=== PATIENT | female | born 1980 | race Caucasian/White ===

== ENCOUNTER 2019-10-07 18:19 | Emergency (ER) | payer MEDICARE, MEDICAID, SELFPAY ==
--- NOTE | ~2019-10-07 | XR_ITS ---
XR shoulder LT min 2V 10/07/2019 19:30 Indication: Left shoulder pain after fall Procedure: 4 views left shoulder Comparison: No prior studies for comparison. Findings: Normal anatomic alignment. No acute fracture or traumatic malalignment. Acromioclavicular j oint within normal limits. Adjacent soft tissues are normal. Visualized lung parenchyma within normal limits. Impression: 1: No acute fracture or subluxation. Reviewed, dictated and finalized at location A. Impression: 1: No acute fracture or subluxation.
--- NOTE | ~2019-10-07 | XR_ITS ---
XR elbow LT min 3V 10/07/2019 19:30 INDICATION: Left posterior elbow pain after fall PROCEDURE: 4 views left elbow COMPARISON: No prior studies for comparison. FINDINGS: Fracture, dislocation or subluxation is not identified. No significant joint effusion. Smal l osteophyte originates from the ventral aspect of the distal humerus. The soft tissues appear within normal limits. No foreign bodies are identified. IMPRESSION: 1: NO ACUTE BONE OR JOINT ABNORMALITY IDENTIFIED. Reviewed, dictated and finalized at location A.
[2019-10-07 18:32] VITALS: BP 150/100; PULSE 87; RESP 16; TEMP 36.9; O2SAT 96
[2019-10-07 19:15] VITALS: BP 164/90; PULSE 88; RESP 12; O2SAT 96
[2019-10-07] MEDS: IBUPROFEN 600 MG TABLET PO (19:34)
--- NOTE | 2019-10-07 20:06 | ED.GENADULT ---
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 struck the left elbow on a stair and has since had moderate aching pain to the left shoulder patient on arrival has ice to the shoulder and is otherwise resting comfortably in the room in no distress denies other injuries or complaints and is resting comfortably as noted Related Data Home Medications Medication Instructions Recorded Confirmed amoxicillin-pot clavulanate tablet 10/07/19 Allergies Allergy/AdvReac Type Severity Reaction Status Date / Time morphine Allergy Unknown Nervousness Verified 10/07/19 19:35 Review of Systems Review of Systems: All systems reviewed & are unremarkable except as noted in HPI and below Exam Narrative: Exam Narrative: GENERAL: Well-appearing, well-nourished, and in no acute distress. HEAD: Normocephalic, atraumatic. EYES: PERRLA and EOMI. ENT: Nares clear, no rhinorrhea or epistaxis. Mucous membranes moist. CHEST: Clear to auscultation. No respiratory distress. No wheezes rales or rhonchi HEART: Regular rate and rhythm. No murmur heard. EXTREMITIES: Tenderness of the left elbow and shoulder with no deformities noted SKIN: Warm, dry, no rash. NEURO: No focal deficits. Alert and oriented x3. Cranial nerves II through XII grossly intact PSYCH: Normal mood and affect. Course Course Emergency Course: Patient in the room in no distress aware of case findings treatment plan and diagnosis agreeing to follow-up as directed with orthopedic surgery felt appropriate for outpatient reevaluation Vital Signs Vital signs: Vital Signs Temperature 98.4 F 10/07/19 18:32 Pulse Rate 87 10/07/19 18:32 Respiratory Rate 16 10/07/19 18:32 Blood Pressure 150/100 H 10/07/19 18:32 Pulse Oximetry 96 10/07/19 18:32 Temperature 98.4 F 10/07/19 18:32 Pulse Rate 87 10/07/19 18:32 Respiratory Rate 16 10/07/19 18:32 Blood Pressure 150/100 H 10/07/19 18:32 Pulse Oximetry 96 10/07/19 18:32 Medical Decision Making MDM Narrative Medical decision making narrative: Patients injury or pain is consistent with musculoskeletal etiology. No signs of neurological or vascular compromise on exam. Compartments and tisues are soft without signs of compartment syndrome. Pain is felt appropriate for further evaluation on an outpatient basis. Vital Signs Vital Signs: Vital Signs Temperature 98.4 F 10/07/19 18:32 Pulse Rate 87 10/07/19 18:32 Respiratory Rate 16 10/07/19 18:32 Blood Pressure 150/100 H 10/07/19 18:32 Pulse Oximetry 96 10/07/19 18:32 Temperature 98.4 F 10/07/19 18:32 Pulse Rate 87 10/07/19 18:32 Respiratory Rate 16 10/07/19 18:32 Blood Pressure 150/100 H 10/07/19 18:32 Pulse Oximetry 96 10/07/19 18:32 Imaging Data Radiologist's impression: ITS Impressions Elbow X-Ray 10/07/19 19:33 IMPRESSION: 1: NO ACUTE BONE OR JOINT ABNORMALITY IDENTIFIED. Shoulder X-Ray 10/07/19 19:34 Impression: 1: No acute fracture or subluxation. Discharge Plan Discharge Clinical Impression: Injury of left shoulder, Injury of elbow, left Patient Disposition: Home, Self-Care Condition: Stable Instructions: Antibiotic Form, Arthralgia (ED) Additional Instructions: Follow up with your primary care doctor in 5-7 days for re-evaluation. Go to ER for worsening pain, vision changes, nausea/vomiting, fever/chills, weakness, chest pain, shortness of breath, numbness/tingling, slurred speech, difficulty walking, change in mental status etc. or any other concerns. Take any prescribed medications a
[2019-10-07 20:25] VITALS: BP 164/90; PULSE 81; RESP 17; O2SAT 97
== END 2019-10-07 20:25 | disposition home or self-care (01) ==
PROVIDERS: Emergency Provider Emergency Medicine
DX: S59.902A Unspecified injury of left elbow, initial encounter (principal); S49.92XA Unspecified injury of left shoulder and upper arm, initial encounter; W22.8XXA Striking against or struck by other objects, initial encounter
CPT/HCPCS: 73030; 73080; 99284; A9270

== ENCOUNTER 2024-05-02 14:07 | Inpatient (IN) | payer OTHER, SELFPAY ==
[2024-05-02] VITALS (15 sets, daily range): BP systolic 184–230; BP diastolic 93–127; PULSE 83–96; RESP 18–22; TEMP 36.7; O2SAT 95–100
--- NOTE | ~2024-05-02 | US_ITS ---
EXAMINATION: US venous doppler [facility] DATE: 05/03/2024 16:56 INDICATION: edmea . TECHNIQUE: Grayscale images without and with compression and Doppler images of the bilateral lower ex tremity veins were obtained. COMPARISON: None FINDINGS: The right common femoral vein, profunda (deep) femoral vein, femoral vein, popliteal vein, peroneal v ein, posterior tibial veins, gastrocnemius vein, and greater saphenous vein are patent. The left common femoral vein, profunda (deep) femoral vein, femoral vein, popliteal vein, peroneal v ein, posterior tibial veins, gastrocnemius vein, and greater saphenous vein are patent. IMPRESSION: Patent bilateral lower extremity veins. No evidence of deep venous thrombosis. Reviewed, dictated and finalized at location K. K TENDER
--- NOTE | ~2024-05-02 | CT_ITS ---
EXAMINATION: CTA chest abdomen pelvis DATE: 05/02/2024 22:32 INDICATION: Abdominal pain. Intermittent chest pain. TECHNIQUE: Computed tomographic angiography (CTA) of the chest, abdomen, and pelvis was performed wit h 100 mL Omnipaque-350 intravenous contrast. Automated exposure control and iterative reconstruction technique were employed. The dose-length product was 2024.76 mGy-cm. Maximum intensity projection 3D- reconstructions of the aorta and other arteries were constructed by the technologist on a separate wo rkstation. COMPARISON: None. FINDINGS: CHEST CTA: The lungs demonstrate mosaic attenuation, likely small airways disease. There is mild atelectasis gorge aterally. No pleural effusion. The heart size is normal. No pericardial effusion. Thoracic aorta is n ormal in caliber. There is mild thoracic spondylosis. ABDOMEN AND PELVIS CTA: Calcifications in the liver consistent with old granulomatous disease. The spleen is normal. The gall bladder is absent. The pancreas and adrenal glands are normal. There is cortical thinning of the kidn eys. There is mild aortic atherosclerosis. No aneurysm or dissection. There is diverticulosis of the colon without evidence of diverticulitis. There are no dilated loops of bowel. The appendix is not vi sualized. There are no pathologically enlarged lymph nodes. There is no free intraperitoneal fluid. T here is a 3.4 cm cyst in left ovary. There is mild lumbar spondylosis. IMPRESSION: 1. Mild aortic atherosclerosis. No aneurysm or dissection. 2. 3.4 cm cyst in left ovary, likely a follicular cyst. Reviewed, dictated and finalized at location A. TALC RACKER
--- OUTSIDE RECORDS SUMMARY | 2024-05-02 14:09 | XMS_ITS | Clinical Summary ---
Author Organization [facility] Address [address] [place] [address] Care Team Providers Care Licensed Surveyor Name Role Phone Sofia Healy MD Primary Care Provider Source Comments [facility],non-owned Affiliates and Associated Physician Practices is amultiple site organization consisting of ambulatory clinics and hospital sitesin [place], [place], [place] and [place]. This disclosure is being madepursuant to the Care Everywhere program and may not contain all informatio navailable regarding this patient. Last updated 17.[facility] Allergies No known active allergies Medications * Be aware that medications may not be up to date on this document. Alwaysverify current medications with the patient. Medication Sig Dispensed Refills Start Date End Date Status hydroCHLOROthiazi de (HYDRODIURIL) 25 MG tablet Take 1 (one) tablet by mouth once daily Active budesonide-formot jason (SYMBICORT) 160-4.5 MCG/ACT inhaler Inhale 2 (two) puffs by mouth 2 times daily Active ALBUTEROL SULFATE IN Active aspirin (ASPIRIN) 81 MG tablet Take 81 mg by mouth once daily Active acetaminophen (Tylenol) 500 MG tablet Take 2 (two) tablets by mouth every 6 hours Maximum allowable Acetaminophen amount = 4 Grams (4000 mg) / 24 hours. 10/01/2022 Active oxyCODONE, immediate release, (Roxicodone) 5 MG tabletIndications :Injury of head, initial encounter Take 1 (one) tablet by mouth every 6 hours as needed for Pain 12 tablet 10/01/2022 Active lidocaine PF 0.5% (Xylocaine) 0.5 % injection In office injection administered by the provider Active celecoxib (CeleBREX) 100 MG capsule Take 1 (one) capsule by mouth once daily 30 capsule 1 10/12/2022 Active rosuvastatin (Crestor) 20 MG tablet Take 1 tablet every day by oral route for 90 days. Active ROPivacaine (Naropin) 5 MG/ML (0.5%) injection in office 07/19/2022 Active Active Problems Problem Noted Date Diagnosed Date Injury of head, initial encounter 09/30/2022 Extravasation injury 09/30/2022 Hematoma of left thigh, initial encounter 2022 Elevated liver enzymes 11/21/2017 Smoker 09/10/2013 Resolved Problems Problem Noted Date Diagnosed Date Resolved Date Generalized anxiety disorder 01/14/2015 12/06/2017 Uncomplicated asthma 09/10/2013 018 Essential (primary) hypertension 09/10/2013 12/06/2017 Polycystic ovarian syndrome 09/10/2013 12/06/2017 Major depressive disorder, single episode 09/10/2013 12/06/2017 Chronic pain syndrome 09/10/20132017 Nicotine dependence, uncomplicated 09/10/2013 12/06/2017 Family History Medical History Relation Name Comments Diabetes Father Diabetes Mother Relation Name Status Comments Father Mother Social History Tobacco Use Types Packs/Day Years Used Date Smoking Tobacco: Every Day Cigarettes Smokeless Tobacco: Never Tobacco Cessation:Ready to Q uit: Not Asked; Counseling Given: Not Answered Alcohol Use Standard Drinks/Week Comments No 0 (1 standard drink = 0.6 oz pur e alcohol) AUDIT-C Answer Date Recorded Q1: How often do you have a drink containing alcohol? Never 09/30/2022 Q2: How many drinks containi ng alcohol do you have on a typical day when you are drinking? Patient does not drink Q3: How often do you have si x or more drinks on one occasion? Never 09/30/2022 Sex and Gender Information Value Date Recorded Sex Assigned at Not on file Gender Identity Not on file Sexual Orientation Not on file Last Filed Vital Signs Vital Sign Reading Time Taken Comments Blood Pressure 178/109 11/09/2022 12:17 PM CDT patient states she takes blood pressure medication and shes also in pain Pulse 76 11/09/2022 12:17 PM CDT Temperature 36.8 ??C (98.2 ??F) 11/09/2022 1 2:17 PM CDT Respiratory Rate 18 10/06/2022 3:46 PM CDT Oxygen Saturation 98% 11/09/2022 12: 17 PM CDT Inhaled Oxygen Concentration - - Weight 112.5 kg (248 lb) 11/09/2022 12: 17 PM CDT Height 160 cm (5' 3 ) 11/09/2022 12:17 PM CDT Body Mass Index 43.93 11/09/2022 12:17 PM CDT Plan of Treatment Health Maintenance Due Date Last Done Comments COLOGUARD (AGES 45-75) - COLON CA SCREENING 1978 COLON MONITORING 1978 COLONOSCOPY - COLON CA SCREENING 1978 CT COLONOGRAPHY - COLON CA SCREENING 1978 Colorectal Cancer Screening 1978 FIT - COLON CA SCREENING 1978 FLEX SIG - COLON CA SCREENING 1978 MAMMOGRAM 1978 PAP SMEAR 1978 HIV SCREENING 1993 HEPATITIS C SCREENING 02/27/1996 DTAP/TDAP/TD VACCINES (1 - Tdap) 1997 HEPATITIS B VACCINE (1 of 3 - 19+ 3-dose series) 1997 PNEUMOCOCCAL VACCINE (1 of 2 - PCV) 1997 COVID-19 VACCINE ( - season) 2023 INFLUENZA VACCINE (#1) 2023 8, 03/06/2017, 02/20/2017 DEPRESSION SCREENING 04/02/2024 MEDICARE AWV ? CALENDAR YEAR 2024 SCREENING FOR DIABETES 10/06/2025 3, 09/30/2022, 03/14/2018, Additional history exists ZOSTER VACCINE (1 of 2) 2028 HIB VACCINE Aged Out No longer eligi ble based on patient's age to complete this topic HPV VACCINE Aged Out No longer eligi ble based on patient's age to complete this topic MENINGOCOCCAL (Group B) VACCINE Aged Out No longer eligible based on patient's age to complete this topic MENINGOCOCCAL VACCINE Aged Out No travis isela eligible based on patient's age to complete this topic Procedures Procedure Name Priority Date/Time Associated Diagnosis Comments COMPREHENSIVE METABOLIC PANEL STAT 10/06/2022 4:52 PM CDT from Last 3 Months or Most Recently Relevant to Health Maintenance Results * (ABNORMAL) COMPREHENSIVE METABOLIC PANEL (10/06/2022 4:52 PM CDT) Pathologist [facility] BUN 11 7 - 26 mg/dL 10/06/2022 5:36 PM [facility] Creatinine 0.78 0.56 - 0.96 mg/dL 10/06/2022 5:36 PM [facility] Sodium 138 136 - 145 mmol/L 10/06/2022 5:36 PM [facility] Potassium 4.4 3.5 - 4.5 mmol/L 10/06/2022 5:36 PM [facility] Comment:Hemolysis detected i n this specimen. Hemolysis may cause false elevations in potassium leading to pseudohyperkalemia or masked hypokalemia. Recommend repeat testing if clinically indicated. Chloride 105 98 - 107 mmol/L 10/06/2022 5:36 PM [facility] CO2 20(L) 22 - 29 mmol/L 10/06/2022 5:36 PM [facility] Glucose 101 70 - 115 mg/dL 10/06/2022 5:36 PM [facility] Calcium 9.0 8.4 - 10.2 mg/dL 10/06/2022 5:36 PM [facility] Protein Total 7.4 6.0 - 8.3 g/dL 10/06/2022 5:36 PM [facility] Comment:Hemolysis detected i n this specimen. Hemolysis is known to cause elevations in this analyte. Caution should be exercised in the interpretation of this result. Recommend repeat testing if clinically indicated. Albumin 3.7 3.4 - 5.0 g/dL 10/06/2022 5:36 PM [facility] Bilirubin Total 0.8 0.2 - 1.2 mg/dL 10/06/2022 5:36 PM [facility] Alkaline Phosphatase 108 40 - 150 U/L 10/06/2022 5:36 PM [facility] ALT 87(H) 5 - 55 U/L 10/06/2022 5:36 PM [facility] AST 31 5 - 34 U/L 10/06/2022 5:36 PM [facility] Comment:Hemolysis detected i n this specimen. Hemolysis is known to cause elevations in this analyte. Caution should be exercised in the interpretation of this result. Recommend repeat testing if clinically indicated. Anion Gap 17 8 - 18 10/06/2022 5:36 PM [facility] BUN/Creatinine Ratio 14 7 - 23 07/0 09/2022 5:36 PM [facility] Osmolality Calculated 286 270 - 300 mOsm/kg 10/06/2022 5:36 PM [facility] Albumin/Globulin Ratio 1.0(L) 1.1 - 2.3 5:36 PM [facility] eGFR by CKD-EPI >90 >=90 mL/min/1. 73 m2 10/06/2022 5:36 PM [facility] Blood BLOOD SPECIMEN / Unknown Venipuncture / Unknown 10/06/2022 4:52 PM CDT 10/06/2022 5:01 PM CDT Lavinia Mendoza CAREER ADVISOR-[facility] TRY ORDERABLES [facility] [address] [place] [address], [facility] [phone] from Last 3 Months or Most Recently Relevant to Health Maintenance Advance Directives * Full Code (Latest Code Status on File) Date Activated Date Inactivated Comments 09/30/2022 5:28 PM 10/01/2022 4:37 PM Care Teams Licensed Surveyor Relationship Specialty Start Date End Date Sofia Healy MD [address] [facility] [address] [place] [address] PCP - General 12/06/17
--- OUTSIDE RECORDS SUMMARY | 2024-05-02 14:09 | XMS_ITS | Patient Health Summary ---
Author Organization [facility] Address [address] [place] [address] Care Team Providers [employer] Name Role Phone Sofia Healy MD Primary Care Provider Note from [facility],non-owned Affiliates and Associated Physician Practices is amultiple site organization consisting of ambulatory clinics and hospital sitesin [place], [place], [place] and [place]. This disclosure is being madepursuant to the Care Everywhere program and may not contain all information available regarding this patient. Last updated 17.[facility] Allergies No known active allergies Medications * Be aware that medications may not be up to date on this document. Alwaysverify current medications with the patient. * hydroCHLOROthiazide (HYDRODIURIL) 25 MG tablet Take 1 (one) tablet by mouth once daily * budesonide-formoterol (SYMBICORT) 160-4.5 MCG/ACT inhaler Inhale 2 (two) puffs by mouth 2 times daily * ALBUTEROL SULFATE IN * aspirin (ASPIRIN) 81 MG tablet Take 81 mg by mouth once daily * acetaminophen (Tylenol) 500 MG tablet(Started 10/01/2022) Take 2 (two) tablets by mouth every 6 hours Maximum allowable Acetaminophen amount = 4 Grams (4000 mg) / 24 hours. * oxyCODONE, immediate release, (Roxicodone) 5 MG tablet(Started 10/01/2022) Take 1 (one) tablet by mouth every 6 hours as needed for Pain * lidocaine PF 0.5% (Xylocaine) 0.5 % injection In office injection administered by the provider * celecoxib (CeleBREX) 100 MG capsule(Started 10/12/2022) Take 1 (one) capsule by mouth once daily 1 refill by 10/12/2023 * rosuvastatin (Crestor) 20 MG tablet Take 1 tablet every day by oral route for 90 days. * ROPivacaine (Naropin) 5 MG/ML (0.5%) injection(Started 07/19/2022) in office Active Problems Problem Noted Date Diagnosed Date [...] syndrome 09/10/20132017 Nicotine dependence, uncomplicated 09/10/2013 12/06/2017 Social History Tobacco Use Types Packs/Day Years [...] Mass Index 43.93 11/09/2022 12:17 PM CDT Procedures * COMPREHENSIVE METABOLIC PANEL(Performed 10/06/2022) * CBC W AUTO DIFFERENTIAL(Performed 10/06/2022) * CBC W/O DIFFERENTIAL(Performed 10/01/2022) * CBC W/O DIFFERENTIAL(Performed 10/01/2022) * CBC W/O DIFFERENTIAL(Performed 10/01/2022) * CBC W/O DIFFERENTIAL(Performed 09/30/2022) * HCG BETA BLOOD QUANTITATIVE(Performed 09/30/2022) * CBC W/O DIFFERENTIAL(Performed 09/30/2022) * BLOOD TYPE VERIFICATION(Performed 09/30/2022) * PREPARE PLATELET PHERESIS UNIT(S)(Performed 09/30/2022) * CT ANGIO LOWER EXTREMITY LEFT(Performed 09/30/2022) Performed for Injury of head, initial encounter * CT CHEST ABDOMEN PELVIS W CONT(Performed 09/30/2022) Performed for Injury of head, initial encounter * CT LUMBAR SPINE WO CONTRAST(Performed 09/30/2022) Performed for Injury of head, initial encounter * CT THORACIC SPINE WO CONTRAST(Performed 09/30/2022) Performed for Injury of head, initial encounter * CT CERVICAL SPINE WO CONTRAST(Performed 09/30/2022) Performed for Injury of head, initial encounter * CT HEAD WO CONTRAST(Performed 09/30/2022) Performed for Injury of head, initial encounter * XR FEMUR RIGHT 2VW(Performed 09/30/2022) Performed for Injury of head, initial encounter * XR PELVIS 1 OR 2VW(Performed 09/30/2022) Performed for Injury of head, initial encounter * XR CHEST 1VW PORTABLE(Performed 09/30/2022) Performed for Injury of head, initial encounter * XR FEMUR LEFT 2VW(Performed 09/30/2022) Performed for Injury of head, initial encounter * TYPE + SCREEN PANEL(Performed 09/30/2022) * TEG 6S PLATELET MAPPING(Performed 09/30/2022) * TEG 6 GLOBAL HEMOSTASIS W/ LYSIS(Performed 09/30/2022) * PTT [facility](Performed 09/30/2022) * PT-INR [facility](Performed 09/30/2022) * CBC W AUTO DIFFERENTIAL(Performed 09/30/2022) * BASIC METABOLIC PANEL (CALCIUM TOTAL)(Performed 09/30/2022) * ALCOHOL ETHYL BLOOD(Performed 09/30/2022) * COMPREHENSIVE METABOLIC PANEL(Performed 03/14/2018) Performed for Elevated liver enzymes * PT-INR [facility](Performed 12/06/2017) Performed for Abnormal liver function * COMPREHENSIVE METABOLIC PANEL(Performed 12/06/2017) Performed for Abnormal liver function * CBC W AUTO DIFFERENTIAL(Performed 12/06/2017) Performed for Abnormal liver function * HCG URINE QUALITATIVE - POCT (IP) [facility](Performed 09/08/2013) * URINALYSIS W/MICROSCOPIC NO CULTURE(Performed 09/08/2013) * HCG URINE QUALITATIVE - POCT (IP) [facility](Performed 09/08/2013) * LIPASE BLOOD(Performed 09/08/2013) * TROPONIN I(Performed 09/08/2013) * CK + CKMB PANEL(Performed 09/08/2013) * LIPASE BLOOD(Performed 09/08/2013) * COMPREHENSIVE METABOLIC PANEL(Performed 09/08/2013) * CBC W AUTO DIFFERENTIAL(Performed 09/08/2013) * CBC W AUTO DIFFERENTIAL(Performed 09/08/2013) * XR CHEST 2VW(Performed 09/08/2013) * EKG 12-LEAD(Performed 09/08/2013) Results * (ABNORMAL) CBC W AUTO DIFFERENTIAL (10/06/2022 4:52 PM CDT) Only the most recent of5 resultswithin the time period is included. WBC 11.1(H) 3.5 - 10.5 10? 3 /uL 10/06/2022 5:06 PM [facility] RBC 3.77(L) 3.80 - 5.20 10? 6 /uL 10/06/2022 5:06 PM [facility] Hemoglobin 11.9(L) 12.0 - 15.6 g/dL 10/06/2022 5:06 PM [facility] Hematocrit 35.3 35.0 - 45.0 % 10/06/2022 5:06 PM [facility] MCV 93.6 80.7 - 98.3 fL 10/06/2022 5:06 PM [facility] MCH 31.6 26.7 - 34.0 pg 10/06/2022 5:06 PM [facility] MCHC 33.7 30.8 - 35.9 g/dL 10/06/2022 5:06 PM [facility] RDW-SD 46.5 36.0 - 50.0 fL 10/06/2022 5:06 PM [facility] RDW-CV 13.7 11.2 - 14.8 % 10/06/2022 5:06 PM [facility] Platelet Count 285 150 - 400 10? 3 /uL 10/06/2022 5:06 PM [facility] MPV 10.8 9.4 - 12.9 fL 10/06/2022 5:06 PM [facility] nRBC Absolute 0.00 0 10? 3 /uL 10/06/2022 5:06 PM [facility] nRBC Auto 0.0 0 /100 WBC 10/06/2022 5:06 PM [facility] Neutrophils % 70.1(H) 35.0 - 70.0 % 10/06/2022 5:06 PM [facility] Lymphocytes % 18.2(L) 20.0 - 43.0 % 10/06/2022 5:06 PM [facility] Monocytes % 8.9 5.0 - 13.0 % 10/06/2022 5:06 PM [facility] Eosinophils % 1.9 0.0 - 6.0 % 10/06/2022 5:06 PM [facility] Basophil % 0.5 0.0 - 2.0 % 10/06/2022 5:06 PM [facility] Neutrophils Absolute 7.77(H) 1.60 - 7.00 10? 3 /uL 10/06/2022 5:06 PM [facility] Lymphocyte Absolute 2.01 1.10 - 3.90 10? 3 /uL 10/06/2022 5:06 PM [facility] Monocytes Absolute 0.99 0.26 - 1.07 10? 3 /uL 10/06/2022 5:06 PM CDT [facility] Eosinophils Absolute 0.21 0.00 - 0.47 10? 3 /uL 10/06/2022 5:06 PM CDT [facility] Basophils Absolute 0.05 0.00 - 0.08 10? 3 /uL 10/06/2022 5:06 PM CDT [facility] Immature Granulocytes % 0.4 0.0 - 1.0 % 10/06/2022 5:06 PM CDT [facility] Immature Granulocytes Absolute 0.04 10/06/2022 5:06 PM T [facility] Blood BLOOD SPECIMEN / Unknown Venipuncture / Unknown 10/06/2022 4:52 PM CDT 10/06/2022 5:01 PM CDT Lavinia Mendoza [employer] C[employer] COORDINATOR LAB - HEMATO LOGY ORDERABLES [address] [address], [facility] [phone] * (ABNORMAL) COMPREHENSIVE METABOLIC PANEL (10/06/2022 4:52 PM CDT) Only the most recent of4 resultswithin the time period is included. BUN 11 7 - 26 mg/dL 10/06/2022 5:36 PM [facility] Creatinine 0.78 0.56 - 0.96 mg/dL 10/06/2022 5:36 PM [facility] Sodium 138 136 - 145 mmol/L 10/06/2022 5:36 PM T [facility] Potassium 4.4 3.5 - 4.5 mmol/L 10/06/2022 5:36 PM [facility] Comment:Hemolysis detected i n this specimen. Hemolysis may cause false elevations in potassium leading to pseudohyperkalemia or masked hypokalemia. Recommend repeat testing if clinically indicated. Chloride 105 98 - 107 mmol/L 10/06/2022 5:36 PM CDT [facility] CO2 20(L) 22 - 29 mmol/L 10/06/2022 5:36 PM [facility] Glucose 101 70 - 115 mg/dL 10/06/2022 5:36 PM [facility] Calcium 9.0 8.4 - 10.2 mg/dL 10/06/2022 5:36 PM [facility] Protein Total 7.4 6.0 - 8.3 g/dL 10/06/2022 5:36 PM [facility] Comment:Hemolysis detected i n this specimen. Hemolysis is known to cause elevations in this analyte. Caution should be exercised in the interpretation of this result. Recommend repeat testing if clinically indicated. Albumin 3.7 3.4 - 5.0 g/dL 10/06/2022 5:36 PM [facility] Bilirubin Total 0.8 0.2 - 1.2 mg/dL 10/06/2022 5:36 PM [facility] Alkaline Phosphatase 108 40 - 150 U/L 10/06/2022 5:36 PM [facility] ALT 87(H) 5 - 55 U/L 10/06/2022 5:36 PM [facility] AST 31 5 - 34 U/L 10/06/2022 5:36 PM [facility] Comment:Hemolysis detected i n this specimen. Hemolysis is known to cause elevations in this analyte. Caution should be exercised in the interpretation of this result. Recommend repeat testing if clinically indicated. Anion Gap 17 8 - 18 10/06/2022 5:36 PM [facility] BUN/Creatinine Ratio 14 7 - 23 09/2022 5:36 PM [facility] Osmolality Calculated 286 270 - 300 mOsm/kg 10/06/2022 5:36 PM [facility] Albumin/Globulin Ratio 1.0(L) 1.1 - 2.3 5:36 PM [facility] eGFR by CKD-EPI >90 >=90 mL/min/1. 73 m2 10/06/2022 5:36 PM [facility] Blood BLOOD SPECIMEN / Unknown Venipuncture / Unknown 10/06/2022 4:52 PM CDT 10/06/2022 5:01 PM CDT Lavinia Mendoza [employer] COORDINATOR LAB - CHEMIS TRY ORDERABLES [facility] [address] [place] [address], [facility] [phone] * (ABNORMAL) CBC W/O DIFFERENTIAL (10/01/2022 12:26 PM T) Only the most recent of5 resultswithin the time period is included. WBC 5.9 3.5 - 10.5 10? 3 /uL 10/01/2022 1:13 PM [facility] RBC 3.32(L) 3.80 - 5.20 10? 6 /uL 10/01/2022 1:13 PM [facility] Hemoglobin 10.5(L) 12.0 - 15.6 g/dL 10/01/2022 1:13 PM [facility] Hematocrit 31.3(L) 35.0 - 45.0 % 10/01/2022 1:13 PM [facility] MCV 94.3 80.7 - 98.3 fL 10/01/2022 1:13 PM [facility] MCH 31.6 26.7 - 34.0 pg 10/01/2022 1:13 PM [facility] MCHC 33.5 30.8 - 35.9 g/dL 10/01/2022 1:13 PM [facility] RDW-SD 46.1 36.0 - 50.0 fL 10/01/2022 1:13 PM [facility] RDW-CV 13.4 11.2 - 14.8 % 10/01/2022 1:13 PM [facility] Platelet Count 205 150 - 400 10? 3 /uL 10/01/2022 1:13 PM [facility] MPV 11.5 9.4 - 12.9 fL 10/01/2022 1:13 PM [facility] nRBC Absolute 0.00 0 10? 3 /uL 10/01/2022 1:13 PM [facility] nRBC Auto 0.0 0 /100 WBC 10/01/2022 1:13 PM [facility] Blood BLOOD SPECIMEN / Unknown Lab Venipuncture / Unknown 10/01/2022 12:26 PM CDT 10/01/2022 12:54 PM CDT Lurdes Reyes MD LAB - HEMATOLOGY ORD ALYSSA Performing Organization Address City/[facility]/ZIP Co de Phone Number [facility] [address] [place] [address], [place] [phone] * HCG BETA BLOOD QUANTITATIVE (09/30/2022 6:30 PM CDT) Beta-hCG Total Quantitative <3 mIU/mL 09/30/2022 7:16 PM CDT [facility] Comment: HCG Numeric Result Interpretation: ? Non- Females: ? < 5 mIU/mL ? Post-Menopausal Females: ??< 7 mIU/mL ? This assay is cleared for use in the early detection of only. It is not approved for any other uses such as tumor marker screening, tumor marker monitoring, etc. and should not be used for any other purposes. Blood BLOOD SPECIMEN / Unknown Venipuncture / Unknown 09/30/2022 6:30 PM CDT 09/30/2022 6:39 PM CDT Lureds Reyes MD LAB - CHEMISTRY LIN HEART Performing Organization Address City/[facility] Co de Phone Number [facility] [address] [place] [address], [place] [phone] * BLOOD TYPE VERIFICATION (09/30/2022 5:13 PM CDT) ABO Rh O POS 09/30/2022 5:5 3 PM CDT [facility] Blood Bank BLOOD SPECIMEN / Unknown 09/30/2022 5:13 PM CDT 09/30/2022 5:20 PM CDT Solange Chapin MD LAB - BLOOD BANK ORD ALYSSA [facility] [address] [place] [address], [place] [phone] * PREPARE PLATELET PHERESIS UNIT(S), 1 Units (09/30/2022 5:05 PM CDT) Unit Description LR PLT Phere B7 [facility] Unit ABO B [facility] Unit Rh POS [facility] Product Number P28 [facility] Unit Donor # [id number] [facility] Unit Status transfused [facility] Product Code [id number] [facility] Blood Type Barcode 7300 [facility] Expiration Date [id number] S BLOOD BANK LAB Blood Bank BLOOD SPECIMEN / Unknown 09/30/2022 3:31 PM CDT Lurdes Reyes MD LAB - BLOOD BANK ORD ERABLES [facility] [address] [place] [address], [facility] [phone] * CT CHEST ABDOMEN PELVIS W CONT - Abdomen-pelvis trauma, blunt or penetrating (09/30/2022 4:32 PM CDT) Anatomical Region Laterality Modality Chest, Abdomen, Pelvis Computed Tomography 09/30/2022 4:23 PM CDT Impressions 09/30/2022 5:37 PM CDT Impression: 1.No acute visceral, vascular, or osseus injury identified in the chest, abdomen, or pelvis. 2.Multilobulated hematoma within the anterior subcutaneous soft tissues of the left mid thigh measuring up to 5.2 x 8.8 x 12.7 cm with multiple foci of contrast extravasation which enlarges on venous phase imaging concerning for active extravasation. Additional surrounding soft tissue contusions. 3.Additional multifocal areas of subcutaneous stranding noted about the abdomen, and right proximal anterior thigh likely representing contusions in the setting of trauma without signs of active extravasation. 4.Patchy mosaic attenuation of the lungs may represent small airway disease. 5.Mild colonic diverticulosis without evidence of acute diverticulitis. Findings communicated to Dr. Sawyer by Dr. Cole at 1625 hours on 09/30/2022 with readback comprehension and verification. > Dictated by Herminio Cole MD (cco & president). Kelsie Hayes MD have personally reviewed and interpreted this examination/study. > Interpreting Provider: Kelsie Stern MD on 09/30/2022 5:37 PM Narrative 09/30/2022 5:37 PM CDT PROCEDURE: ??CT CHEST ABDOMEN PELVIS W CONT, CT ANGIO LOWER EXTREMITY LEFT, DATE/TIME OF EXAM: ??09/30/2022 4:34 PM, LOCATION ??[facility] INDICATION: Trauma ADDITIONAL CLINICAL INFORMATION: Ordering Provider Reason For Exam: ??Rule out extravasation of left lower extremity COMPARISON: None. TECHNIQUE: CT of the chest, abdomen, and pelvis was performed after the uneventful administration of 100 mL of Isovue 370 intravenous contrast according to standard protocol. CT angiography of the left lower extremity was simultaneously performed. Three-dimensional postprocessing was performed by the technologist and sent to the workstation for review. Findings: Chest: Lower Neck and Axillae: Normal. Lungs: Mild subsegmental atelectasis within the lung bases and lingula. Patchy mosaic attenuation within the bilateral lungs may be related to small airways disease. No suspicious pulmonary nodules are identified. No pleural fluid or pneumothorax is present. Heart and Pericardium: The heart is borderline enlarged. There is no pericardial fluid or thickening. Mediastinum and Venus: No mediastinal hemorrhage is present. No enlarged lymph nodes are present. Thoracic Vasculature: No vascular abnormality is present. Abdomen/pelvis: Liver: The hepatic parenchyma enhances homogeneously without evidence of laceration or lesion. Gallbladder and Bile Ducts: The gallbladder is absent. There is no intra or extrahepatic biliary ductal dilatation. Spleen: Normal. Pancreas: The pancreas enhances homogeneously without evidence of laceration or lesion. Adrenals: Normal. Kidneys: The bilateral kidneys enhance symmetrically without evidence of laceration, hydronephrosis, or nephrolithiasis. Gastrointestinal: The stomach and visualized loops of small bowel are unremarkable. There is mild colonic diverticulosis without evidence of acute diverticulitis. The appendix is not seen; however, no inflammatory changes are seen in the right lower quadrant. Mesentery/Peritoneum/Retroperitoneum: No free intraperitoneal air. No free fluid in the abdomen or pelvis. Bladder: The urinary bladder is decompressed. Reproductive Organs: The uterus is normal. Multiple small uterine fibroids are noted. Abdominal Vasculature: Atherosclerotic calcification of the aorta and its branch vessels. Bones: Bone windows demonstrate no suspicious lytic or blastic lesions. The visible osseous structures are intact. Mild multilevel degenerative changes noted about the imaged thoracolumbar spine. Soft tissues: Multifocal areas of subcutaneous stranding noted about the anterior abdomen, and right proximal anterior thigh likely represent contusion in the setting of trauma without signs of active extravasation. Small fat-containing umbilical hernia without any associated inflammatory changes. Left lower extremity angiogram: Multilobulated hematoma within the anterior subcutaneous soft tissues of the mid thigh measuring up to 5.2 x 8.8 x 12.7 cm (AP by TV by CC) with multiple foci of contrast extravasation which enlarges on venous phase imaging concerning for active contrast extravasation. Surrounding subcutaneous soft tissue contusion is seen. The large vessels of the left thigh are intact and widely patent. Subcutaneous stranding about the anterolateral aspect of the distal thigh likely represents contusions and small volume hematoma in the setting of trauma. No acute fracture or dislocation of the imaged left lower extremity. Procedure Note Nadege Stern MD - 09/30/2022 PROCEDURE: CT CHEST ABDOMEN PELVIS W CONT, CT ANGIO LOWER EXTREMITYLEFT, DATE/TIME OF EXAM: 09/30/2022 4:34 PM, LOCATION [facility] INDICATION: Trauma ADDITIONAL CLINICAL INFORMATION: Ordering Provider Reason For Exam: Rule out extravasation of left lower extremity COMPARISON: None. TECHNIQUE: CT of the chest, abdomen, and pelvis was performed after the uneventful administration of 100 mL of Isovue 370 intravenous contrast according to standard protocol. CT angiography of the left lowerextremity was simultaneously performed. Three-dimensional postprocessing was performed by the technologist and sent to the workstation for review. Findings: Chest: Lower Neck and Axillae: Normal. Lungs: Mild subsegmental atelectasis within the lung bases and lingula. Patchy mosaic attenuation within the bilateral lungs may be related to small airways disease. No suspicious pulmonary nodules are identified. Nopleural fluid or pneumothorax is present. Heart and Pericardium: The heart is borderline enlarged. There is no pericardial fluid or thickening. Mediastinum and Venus: No mediastinal hemorrhage is present. No enlarged lymph nodes arepresent. Thoracic Vasculature: No vascular abnormality is present. Abdomen/pelvis: Liver: The hepatic parenchyma enhances homogeneously without evidence of laceration or lesion. Gallbladder and Bile Ducts: The gallbladder is absent. There is no intra or extrahepatic biliaryductal dilatation. Spleen: Normal. Pancreas: The pancreas enhances homogeneously without evidence of laceration or lesion. Adrenals: Normal. Kidneys: The bilateral kidneys enhance symmetrically without evidence oflaceration, hydronephrosis, or nephrolithiasis. Gastrointestinal: The stomach and visualized loops of small bowel are unremarkable. Thereis mild colonic diverticulosis without evidence of acute diverticulitis.The appendix is not seen; however, no inflammatory changes are seen in the right lower quadrant. Mesentery/Peritoneum/Retroperitoneum: No free intraperitoneal air. No free fluid in the abdomen or pelvis. Bladder: The urinary bladder is decompressed. Reproductive Organs: The uterus is normal. Multiple small uterine fibroids are noted. Abdominal Vasculature: Atherosclerotic calcification of the aorta and its branch vessels. Bones: Bone windows demonstrate no suspicious lytic or blastic lesions. The visible osseous structures are intact. Mild multilevel degenerativechanges noted about the imaged thoracolumbar spine. Soft tissues: Multifocal areas of subcutaneous stranding noted about the anterior abdomen, and right proximal anterior thigh likely represent contusion in the setting of trauma without signs of active extravasation. Small fat-containing umbilical hernia without any associated inflammatory changes. Left lower extremity angiogram: Multilobulated hematoma within the anterior subcutaneous soft tissues of the mid thigh measuring up to 5.2 x 8.8 x 12.7 cm (AP by TV by CC) with multiple foci of contrast extravasation which enlarges on venous phase imaging concerning for active contrast extravasation. Surrounding subcutaneous soft tissue contusion is seen. The large vessels of theleft thigh are intact and widely patent. Subcutaneous stranding about the anterolateral aspect of the distal thigh likely represents contusionsand small volume hematoma in the setting of trauma. No acute fracture or dislocation of the imaged left lower extremity. Impression: 1.No acute visceral, vascular, or osseus injury identified in the chest, abdomen, or pelvis. 2.Multilobulated hematoma within the anterior subcutaneous soft tissuesof the left mid thigh measuring up to 5.2 x 8.8 x 12.7 cm with multiplefoci of contrast extravasation which enlarges on venous phase imagingconcerning for active extravasation. Additional surrounding soft tissue contusions. 3.Additional multifocal areas of subcutaneous stranding noted about the abdomen, and right proximal anterior thigh likely representingcontusions in the setting of trauma without signs of active extravasation. 4.Patchy mosaic attenuation of the lungs may represent small airway disease. 5.Mild colonic diverticulosis without evidence of acute diverticulitis. Findings communicated to Dr. Sawyer by Dr. Cole at 1625 hours on 09/30/2022 with readback comprehension and verification. > Dictated by Herminio Cole MD (cco & president). Kelsie Hayes MD have personally reviewed and interpreted this examination/study. > Interpreting Provider: Kelsie Stern MD on 09/30/2022 5:37 PM Lurdes Reyes MD CT ORDERABLES * CT ANGIO LOWER EXTREMITY LEFT (09/30/2022 4:32 PM CDT) Anatomical Region Laterality Modality Lower Extremity Computed Tomogra phy 09/30/2022 4:23 PM CDT Impressions 09/30/2022 5:37 PM CDT Impression: 1.No acute visceral, vascular, or osseus injury identified in the chest, abdomen, or pelvis. 2.Multilobulated hematoma within the anterior subcutaneous soft tissues of the left mid thigh measuring up to 5.2 x 8.8 x 12.7 cm with multiple foci of contrast extravasation which enlarges on venous phase imaging concerning for active extravasation. Additional surrounding soft tissue contusions. 3.Additional multifocal areas of subcutaneous stranding noted about the abdomen, and right proximal anterior thigh likely representing contusions in the setting of trauma without signs of active extravasation. 4.Patchy mosaic attenuation of the lungs may represent small airway disease. 5.Mild colonic diverticulosis without evidence of acute diverticulitis. Findings communicated to Dr. Sawyer by Dr. Cole at 1625 hours on 09/30/2022 with readback comprehension and verification. > Dictated by Herminio Cole MD (cco & president). Kelsie Hayes MD have personally reviewed and interpreted this examination/study. > Interpreting Provider: Kelsie Stern MD on 09/30/2022 5:37 PM Narrative 09/30/2022 5:37 PM CDT PROCEDURE: ??CT CHEST ABDOMEN PELVIS W CONT, CT ANGIO LOWER EXTREMITY LEFT, DATE/TIME OF EXAM: ??09/30/2022 4:34 PM, LOCATION ??[facility] INDICATION: Trauma ADDITIONAL CLINICAL INFORMATION: Ordering Provider Reason For Exam: ??Rule out extravasation of left lower extremity COMPARISON: None. TECHNIQUE: CT of the chest, abdomen, and pelvis was performed after the uneventful administration of 100 mL of Isovue 370 intravenous contrast according to standard protocol. CT angiography of the left lower extremity was simultaneously performed. Three-dimensional postprocessing was performed by the technologist and sent to the workstation for review. Findings: Chest: Lower Neck and Axillae: Normal. Lungs: Mild subsegmental atelectasis within the lung bases and lingula. Patchy mosaic attenuation within the bilateral lungs may be related to small airways disease. No suspicious pulmonary nodules are identified. No pleural fluid or pneumothorax is present. Heart and Pericardium: The heart is borderline enlarged. There is no pericardial fluid or thickening. Mediastinum and Venus: No mediastinal hemorrhage is present. No enlarged lymph nodes are present. Thoracic Vasculature: No vascular abnormality is present. Abdomen/pelvis: Liver: The hepatic parenchyma enhances homogeneously without evidence of laceration or lesion. Gallbladder and Bile Ducts: The gallbladder is absent. There is no intra or extrahepatic biliary ductal dilatation. Spleen: Normal. Pancreas: The pancreas enhances homogeneously without evidence of laceration or lesion. Adrenals: Normal. Kidneys: The bilateral kidneys enhance symmetrically without evidence of laceration, hydronephrosis, or nephrolithiasis. Gastrointestinal: The stomach and visualized loops of small bowel are unremarkable. There is mild colonic diverticulosis without evidence of acute diverticulitis. The appendix is not seen; however, no inflammatory changes are seen in the right lower quadrant. Mesentery/Peritoneum/Retroperitoneum: No free intraperitoneal air. No free fluid in the abdomen or pelvis. Bladder: The urinary bladder is decompressed. Reproductive Organs: The uterus is normal. Multiple small uterine fibroids are noted. Abdominal Vasculature: Atherosclerotic calcification of the aorta and its branch vessels. Bones: Bone windows demonstrate no suspicious lytic or blastic lesions. The visible osseous structures are intact. Mild multilevel degenerative changes noted about the imaged thoracolumbar spine. Soft tissues: Multifocal areas of subcutaneous stranding noted about the anterior abdomen, and right proximal anterior thigh likely represent contusion in the setting of trauma without signs of active extravasation. Small fat-containing umbilical hernia without any associated inflammatory changes. Left lower extremity angiogram: Multilobulated hematoma within the anterior subcutaneous soft tissues of the mid thigh measuring up to 5.2 x 8.8 x 12.7 cm (AP by TV by CC) with multiple foci of contrast extravasation which enlarges on venous phase imaging concerning for active contrast extravasation. Surrounding subcutaneous soft tissue contusion is seen. The large vessels of the left thigh are intact and widely patent. Subcutaneous stranding about the anterolateral aspect of the distal thigh likely represents contusions and small volume hematoma in the setting of trauma. No acute fracture or dislocation of the imaged left lower extremity. Procedure Note Nadege Stern MD - 09/30/2022 PROCEDURE: CT CHEST ABDOMEN PELVIS W CONT, CT ANGIO LOWER EXTREMITYLEFT, DATE/TIME OF EXAM: 09/30/2022 4:34 PM, LOCATION [facility] INDICATION: Trauma ADDITIONAL CLINICAL INFORMATION: Ordering Provider Reason For Exam: Rule out extravasation of left lower extremity COMPARISON: None. TECHNIQUE: CT of the chest, abdomen, and pelvis was performed after the uneventful administration of 100 mL of Isovue 370 intravenous contrast according to standard protocol. CT angiography of the left lowerextremity was simultaneously performed. Three-dimensional postprocessing was performed by the technologist and sent to the workstation for review. Findings: Chest: Lower Neck and Axillae: Normal. Lungs: Mild subsegmental atelectasis within the lung bases and lingula. Patchy mosaic attenuation within the bilateral lungs may be related to small airways disease. No suspicious pulmonary nodules are identified. Nopleural fluid or pneumothorax is present. Heart and Pericardium: The heart is borderline enlarged. There is no pericardial fluid or thickening. Mediastinum and Venus: No mediastinal hemorrhage is present. No enlarged lymph nodes arepresent. Thoracic Vasculature: No vascular abnormality is present. Abdomen/pelvis: Liver: The hepatic parenchyma enhances homogeneously without evidence of laceration or lesion. Gallbladder and Bile Ducts: The gallbladder is absent. There is no intra or extrahepatic biliaryductal dilatation. Spleen: Normal. Pancreas: The pancreas enhances homogeneously without evidence of laceration or lesion. Adrenals: Normal. Kidneys: The bilateral kidneys enhance symmetrically without evidence oflaceration, hydronephrosis, or nephrolithiasis. Gastrointestinal: The stomach and visualized loops of small bowel are unremarkable. Thereis mild colonic diverticulosis without evidence of acute diverticulitis.The appendix is not seen; however, no inflammatory changes are seen in the right lower quadrant. Mesentery/Peritoneum/Retroperitoneum: No free intraperitoneal air. No free fluid in the abdomen or pelvis. Bladder: The urinary bladder is decompressed. Reproductive Organs: The uterus is normal. Multiple small uterine fibroids are noted. Abdominal Vasculature: Atherosclerotic calcification of the aorta and its branch vessels. Bones: Bone windows demonstrate no suspicious lytic or blastic lesions. The visible osseous structures are intact. Mild multilevel degenerativechanges noted about the imaged thoracolumbar spine. Soft tissues: Multifocal areas of subcutaneous stranding noted about the anterior abdomen, and right proximal anterior thigh likely represent contusion in the setting of trauma without signs of active extravasation. Small fat-containing umbilical hernia without any associated inflammatory changes. Left lower extremity angiogram: Multilobulated hematoma within the anterior subcutaneous soft tissues of the mid thigh measuring up to 5.2 x 8.8 x 12.7 cm (AP by TV by CC) with multiple foci of contrast extravasation which enlarges on venous phase imaging concerning for active contrast extravasation. Surrounding subcutaneous soft tissue contusion is seen. The large vessels of theleft thigh are intact and widely patent. Subcutaneous stranding about the anterolateral aspect of the distal thigh likely represents contusionsand small volume hematoma in the setting of trauma. No acute fracture or dislocation of the imaged left lower extremity. Impression: 1.No acute visceral, vascular, or osseus injury identified in the chest, abdomen, or pelvis. 2.Multilobulated hematoma within the anterior subcutaneous soft tissuesof the left mid thigh measuring up to 5.2 x 8.8 x 12.7 cm with multiplefoci of contrast extravasation which enlarges on venous phase imagingconcerning for active extravasation. Additional surrounding soft tissue contusions. 3.Additional multifocal areas of subcutaneous stranding noted about the abdomen, and right proximal anterior thigh likely representingcontusions in the setting of trauma without signs of active extravasation. 4.Patchy mosaic attenuation of the lungs may represent small airway disease. 5.Mild colonic diverticulosis without evidence of acute diverticulitis. Findings communicated to Dr. Sawyer by Dr. Cole at 1625 hours on 09/30/2022 with readback comprehension and verification. > Dictated by Herminio Cole MD (cco & president). IKelsie MD have personally reviewed and interpreted this examination/study. > Interpreting Provider: Kelsie Stern MD on 09/30/2022 5:37 PM Lurdes Reyes MD CT ORDERABLES * CT LUMBAR SPINE WO CONTRAST - T/L-spine trauma, Spine fracture (09/30/2022 4:32 PM CDT) Anatomical Region Laterality Modality Spine Computed Tomogra phy 09/30/2022 4:34 PM CDT Impressions 09/30/2022 4:52 PM CDT IMPRESSION: 1.No evidence of acute fracture in the cervical, thoracic, or lumbar spine. 2.Please refer to the concurrent, dedicated body report for findings in the chest, abdomen, and pelvis. > Dictated by Parrish Laguna MD, MD (cco & president). I, Vincenzo Nascimento MD have personally reviewed and interpreted this examination/study. > Interpreting Provider: Vincenzo Nascimento MD on 09/30/2022 4:52 PM Narrative 09/30/2022 4:52 PM CDT PROCEDURE: ??CT CERVICAL SPINE WO CONTRAST, CT LUMBAR SPINE WO CONTRAST, CT THORACIC SPINE WO CONTRAST, DATE/TIME OF EXAM: ??09/30/2022 4:34 PM, LOCATION [facility] INDICATION: Trauma ADDITIONAL CLINICAL INFORMATION: Ordering Provider Reason For Exam: ??Trauma. Technologist Note: ??None. Additional: ??None. EXAMINATION: 1.COMPUTED TOMOGRAPHY (CT) OF THE CERVICAL SPINE WITHOUT CONTRAST 2.CT OF THE THORACIC SPINE WITHOUT CONTRAST 3.CT OF THE LUMBAR SPINE WITHOUT CONTRAST HISTORY: Trauma TECHNIQUE: CT of the cervical spine was performed without contrast according to standard protocol. Sagittal, axial and coronal images of the thoracic and lumbar spines were reformatted from the concurrently obtained CT scan of the chest, abdomen and pelvis. CT dose reduction technique was used, including Automated Exposure Control. COMPARISON: None. FINDINGS: Cervical spine: There is gentle cervical kyphosis. Vertebral bodies are normal in height without evidence of acute fracture. Other than middle atlantoaxial joint osteoarthritis, the craniocervical junction appears normal. There is mild degenerative disc disease. Mild central canal stenosis is seen at C4 the C5 and C5-C6 due to disc bulge/disc osteophyte complex. There are varying degrees of mild facet osteoarthritis. There are varying degrees of mild uncovertebral joint osteoarthritis with the same degree of neural foraminal stenosis at these levels. No soft tissue abnormality is identified. Thoracic spine: The alignment is maintained. The bones are osteopenic. Vertebral bodies are normal in height without evidence of acute fracture. Schmorl's nodes are present at multiple levels. No high-grade central canal stenosis is seen. There is mild facet osteoarthritis at multiple levels. There are varying degrees of neural foraminal stenosis at multiple levels. Mild nodularity of the left adrenal gland. There is subsegmental atelectasis in the dependent portions of the lung bases. Lumbar spine: Trace anterolisthesis of L4 on L5. The alignment is otherwise maintained. Vertebral bodies are normal in height without evidence of acute fracture. There is diffuse disc bulge at multiple levels. Mild to moderate multilevel spinal canal stenosis is seen, worst at L4-L5 where it is at least moderate. There is mild to advanced facet osteoarthritis at multiple levels. There are varying degrees of neural foraminal stenosis at multiple levels. There is atherosclerotic calcification of the abdominal aorta and its branch vessels. Procedure Note Vincenzo Nascimento MD - 09/30/2022 PROCEDURE: CT CERVICAL SPINE WO CONTRAST, CT LUMBAR SPINE WO CONTRAST,CT THORACIC SPINE WO CONTRAST, DATE/TIME OF EXAM: 09/30/2022 4:34 PM, LOCATION [facility] INDICATION: Trauma ADDITIONAL CLINICAL INFORMATION: Ordering Provider Reason For Exam: Trauma. Technologist Note: None. Additional: None. EXAMINATION: 1.COMPUTED TOMOGRAPHY (CT) OF THE CERVICAL SPINE WITHOUT CONTRAST 2.CT OF THE THORACIC SPINE WITHOUT CONTRAST 3.CT OF THE LUMBAR SPINE WITHOUT CONTRAST HISTORY: Trauma TECHNIQUE: CT of the cervical spine was performed without contrast according to standard protocol. Sagittal, axial and coronal images ofthe thoracic and lumbar spines were reformatted from the concurrentlyobtained CT scan of the chest, abdomen and pelvis. CT dose reduction techniquewas used, including Automated Exposure Control. COMPARISON: None. FINDINGS: Cervical spine: There is gentle cervical kyphosis. Vertebral bodies are normal in height without evidence of acute fracture. Other than middle atlantoaxial joint osteoarthritis, the craniocervical junction appears normal. There ismild degenerative disc disease. Mild central canal stenosis is seen at C4 theC5 and C5-C6 due to disc bulge/disc osteophyte complex. There are varying degrees of mild facet osteoarthritis. There are varying degrees of mild uncovertebral joint osteoarthritis with the same degree of neuralforaminal stenosis at these levels. No soft tissue abnormality is identified. Thoracic spine: The alignment is maintained. The bones are osteopenic. Vertebral bodiesare normal in height without evidence of acute fracture. Schmorl's nodes are present at multiple levels. No high-grade central canal stenosis isseen. There is mild facet osteoarthritis at multiple levels. There are varying degrees of neural foraminal stenosis at multiple levels. Mild nodularityof the left adrenal gland. There is subsegmental atelectasis in thedependent portions of the lung bases. Lumbar spine: Trace anterolisthesis of L4 on L5. The alignment is otherwisemaintained. Vertebral bodies are normal in height without evidence of acutefracture. There is diffuse disc bulge at multiple levels. Mild to moderatemultilevel spinal canal stenosis is seen, worst at L4-L5 where it is at least moderate. There is mild to advanced facet osteoarthritis at multiple levels. There are varying degrees of neural foraminal stenosis atmultiple levels. There is atherosclerotic calcification of the abdominal aortaand its branch vessels. IMPRESSION: 1.No evidence of acute fracture in the cervical, thoracic, or lumbarspine. 2.Please refer to the concurrent, dedicated body report for findings inthe chest, abdomen, and pelvis. > Dictated by Parrish Laguna MD, MD (cco & president). Vincenzo Hayes MD have personally reviewed and interpretedthis examination/study. > Interpreting Provider: Vincenzo Nascimento MD on 09/30/2022 4:52 PM Lurdes Reyes MD CT ORDERABLES * CT THORACIC SPINE WO CONTRAST - T/L-spine trauma, spine fracture (09/30/2022 4:32 PM CDT) Anatomical Region Laterality Modality Spine Computed Tomogra phy 09/30/2022 4:34 PM CDT Impressions 09/30/2022 4:52 PM CDT IMPRESSION: 1.No evidence of acute fracture in the cervical, thoracic, or lumbar spine. 2.Please refer to the concurrent, dedicated body report for findings in the chest, abdomen, and pelvis. > Dictated by Parrish Laguna MD, (cco & president). Vincenzo Hayes MD have personally reviewed and interpreted this examination/study. > Interpreting Provider: Vincenzo Nascimento MD on 09/30/2022 4:52 PM Narrative 09/30/2022 4:52 PM CDT PROCEDURE: ??CT CERVICAL SPINE WO CONTRAST, CT LUMBAR SPINE WO CONTRAST, CT THORACIC SPINE WO CONTRAST, DATE/TIME OF EXAM: ??09/30/2022 4:34 PM, LOCATION [facility] INDICATION: Trauma ADDITIONAL CLINICAL INFORMATION: Ordering Provider Reason For Exam: ??Trauma. Technologist Note: ??None. Additional: ??None. EXAMINATION: 1.COMPUTED TOMOGRAPHY (CT) OF THE CERVICAL SPINE WITHOUT CONTRAST 2.CT OF THE THORACIC SPINE WITHOUT CONTRAST 3.CT OF THE LUMBAR SPINE WITHOUT CONTRAST HISTORY: Trauma TECHNIQUE: CT of the cervical spine was performed without contrast according to standard protocol. Sagittal, axial and coronal images of the thoracic and lumbar spines were reformatted from the concurrently obtained CT scan of the chest, abdomen and pelvis. CT dose reduction technique was used, including Automated Exposure Control. COMPARISON: None. FINDINGS: Cervical spine: There is gentle cervical kyphosis. Vertebral bodies are normal in height without evidence of acute fracture. Other than middle atlantoaxial joint osteoarthritis, the craniocervical junction appears normal. There is mild degenerative disc disease. Mild central canal stenosis is seen at C4 the C5 and C5-C6 due to disc bulge/disc osteophyte complex. There are varying degrees of mild facet osteoarthritis. There are varying degrees of mild uncovertebral joint osteoarthritis with the same degree of neural foraminal stenosis at these levels. No soft tissue abnormality is identified. Thoracic spine: The alignment is maintained. The bones are osteopenic. Vertebral bodies are normal in height without evidence of acute fracture. Schmorl's nodes are present at multiple levels. No high-grade central canal stenosis is seen. There is mild facet osteoarthritis at multiple levels. There are varying degrees of neural foraminal stenosis at multiple levels. Mild nodularity of the left adrenal gland. There is subsegmental atelectasis in the dependent portions of the lung bases. Lumbar spine: Trace anterolisthesis of L4 on L5. The alignment is otherwise maintained. Vertebral bodies are normal in height without evidence of acute fracture. There is diffuse disc bulge at multiple levels. Mild to moderate multilevel spinal canal stenosis is seen, worst at L4-L5 where it is at least moderate. There is mild to advanced facet osteoarthritis at multiple levels. There are varying degrees of neural foraminal stenosis at multiple levels. There is atherosclerotic calcification of the abdominal aorta and its branch vessels. Procedure Note Vincenzo Nascimento MD - 09/30/2022 PROCEDURE: CT CERVICAL SPINE WO CONTRAST, CT LUMBAR SPINE WO CONTRAST,CT THORACIC SPINE WO CONTRAST, DATE/TIME OF EXAM: 09/30/2022 4:34 PM, LOCATION [facility] INDICATION: Trauma ADDITIONAL CLINICAL INFORMATION: Ordering Provider Reason For Exam: Trauma. Technologist Note: None. Additional: None. EXAMINATION: 1.COMPUTED TOMOGRAPHY (CT) OF THE CERVICAL SPINE WITHOUT CONTRAST 2.CT OF THE THORACIC SPINE WITHOUT CONTRAST 3.CT OF THE LUMBAR SPINE WITHOUT CONTRAST HISTORY: Trauma TECHNIQUE: CT of the cervical spine was performed without contrast according to standard protocol. Sagittal, axial and coronal images ofthe thoracic and lumbar spines were reformatted from the concurrentlyobtained CT scan of the chest, abdomen and pelvis. CT dose reduction techniquewas used, including Automated Exposure Control. COMPARISON: None. FINDINGS: Cervical spine: There is gentle cervical kyphosis. Vertebral bodies are normal in height without evidence of acute fracture. Other than middle atlantoaxial joint osteoarthritis, the craniocervical junction appears normal. There ismild degenerative disc disease. Mild central canal stenosis is seen at C4 theC5 and C5-C6 due to disc bulge/disc osteophyte complex. There are varying degrees of mild facet osteoarthritis. There are varying degrees of mild uncovertebral joint osteoarthritis with the same degree of neuralforaminal stenosis at these levels. No soft tissue abnormality is identified. Thoracic spine: The alignment is maintained. The bones are osteopenic. Vertebral bodiesare normal in height without evidence of acute fracture. Schmorl's nodes are present at multiple levels. No high-grade central canal stenosis isseen. There is mild facet osteoarthritis at multiple levels. There are varying degrees of neural foraminal stenosis at multiple levels. Mild nodularityof the left adrenal gland. There is subsegmental atelectasis in thedependent portions of the lung bases. Lumbar spine: Trace anterolisthesis of L4 on L5. The alignment is otherwisemaintained. Vertebral bodies are normal in height without evidence of acutefracture. There is diffuse disc bulge at multiple levels. Mild to moderatemultilevel spinal canal stenosis is seen, worst at L4-L5 where it is at least moderate. There is mild to advanced facet osteoarthritis at multiple levels. There are varying degrees of neural foraminal stenosis atmultiple levels. There is atherosclerotic calcification of the abdominal aortaand its branch vessels. IMPRESSION: 1.No evidence of acute fracture in the cervical, thoracic, or lumbarspine. 2.Please refer to the concurrent, dedicated body report for findings inthe chest, abdomen, and pelvis. > Dictated by Parrish Laguna MD, (cco & president). Vincenzo Hayes MD have personally reviewed and interpretedthis examination/study. > Interpreting Provider: Vincenzo Nascimento MD on 09/30/2022 4:52 PM Lurdes Reyes MD CT ORDERABLES * CT CERVICAL SPINE WO CONTRAST - C-Spine Trauma, Spine fracture (09/30/2022 4:32 PM CDT) Anatomical Region Laterality Modality Spine Computed Tomogra phy 09/30/2022 4:34 PM CDT Impressions 09/30/2022 4:52 PM CDT IMPRESSION: 1.No evidence of acute fracture in the cervical, thoracic, or lumbar spine. 2.Please refer to the concurrent, dedicated body report for findings in the chest, abdomen, and pelvis. > Dictated by Parrish Laguna MD, (cco & president). Vincenzo Hayes MD have personally reviewed and interpreted this examination/study. > Interpreting Provider: Vincenzo Nascimento MD on 09/30/2022 4:52 PM Narrative 09/30/2022 4:52 PM CDT PROCEDURE: ??CT CERVICAL SPINE WO CONTRAST, CT LUMBAR SPINE WO CONTRAST, CT THORACIC SPINE WO CONTRAST, DATE/TIME OF EXAM: ??09/30/2022 4:34 PM, LOCATION [facility] INDICATION: Trauma ADDITIONAL CLINICAL INFORMATION: Ordering Provider Reason For Exam: ??Trauma. Technologist Note: ??None. Additional: ??None. EXAMINATION: 1.COMPUTED TOMOGRAPHY (CT) OF THE CERVICAL SPINE WITHOUT CONTRAST 2.CT OF THE THORACIC SPINE WITHOUT CONTRAST 3.CT OF THE LUMBAR SPINE WITHOUT CONTRAST HISTORY: Trauma TECHNIQUE: CT of the cervical spine was performed without contrast according to standard protocol. Sagittal, axial and coronal images of the thoracic and lumbar spines were reformatted from the concurrently obtained CT scan of the chest, abdomen and pelvis. CT dose reduction technique was used, including Automated Exposure Control. COMPARISON: None. FINDINGS: Cervical spine: There is gentle cervical kyphosis. Vertebral bodies are normal in height without evidence of acute fracture. Other than middle atlantoaxial joint osteoarthritis, the craniocervical junction appears normal. There is mild degenerative disc disease. Mild central canal stenosis is seen at C4 the C5 and C5-C6 due to disc bulge/disc osteophyte complex. There are varying degrees of mild facet osteoarthritis. There are varying degrees of mild uncovertebral joint osteoarthritis with the same degree of neural foraminal stenosis at these levels. No soft tissue abnormality is identified. Thoracic spine: The alignment is maintained. The bones are osteopenic. Vertebral bodies are normal in height without evidence of acute fracture. Schmorl's nodes are present at multiple levels. No high-grade central canal stenosis is seen. There is mild facet osteoarthritis at multiple levels. There are varying degrees of neural foraminal stenosis at multiple levels. Mild nodularity of the left adrenal gland. There is subsegmental atelectasis in the dependent portions of the lung bases. Lumbar spine: Trace anterolisthesis of L4 on L5. The alignment is otherwise maintained. Vertebral bodies are normal in height without evidence of acute fracture. There is diffuse disc bulge at multiple levels. Mild to moderate multilevel spinal canal stenosis is seen, worst at L4-L5 where it is at least moderate. There is mild to advanced facet osteoarthritis at multiple levels. There are varying degrees of neural foraminal stenosis at multiple levels. There is atherosclerotic calcification of the abdominal aorta and its branch vessels. Procedure Note Vincenzo Nascimento MD - 09/30/2022 PROCEDURE: CT CERVICAL SPINE WO CONTRAST, CT LUMBAR SPINE WO CONTRAST,CT THORACIC SPINE WO CONTRAST, DATE/TIME OF EXAM: 09/30/2022 4:34 PM, LOCATION [facility] INDICATION: Trauma ADDITIONAL CLINICAL INFORMATION: Ordering Provider Reason For Exam: Trauma. Technologist Note: None. Additional: None. EXAMINATION: 1.COMPUTED TOMOGRAPHY (CT) OF THE CERVICAL SPINE WITHOUT CONTRAST 2.CT OF THE THORACIC SPINE WITHOUT CONTRAST 3.CT OF THE LUMBAR SPINE WITHOUT CONTRAST HISTORY: Trauma TECHNIQUE: CT of the cervical spine was performed without contrast according to standard protocol. Sagittal, axial and coronal images ofthe thoracic and lumbar spines were reformatted from the concurrentlyobtained CT scan of the chest, abdomen and pelvis. CT dose reduction techniquewas used, including Automated Exposure Control. COMPARISON: None. FINDINGS: Cervical spine: There is gentle cervical kyphosis. Vertebral bodies are normal in height without evidence of acute fracture. Other than middle atlantoaxial joint osteoarthritis, the craniocervical junction appears normal. There ismild degenerative disc disease. Mild central canal stenosis is seen at C4 theC5 and C5-C6 due to disc bulge/disc osteophyte complex. There are varying degrees of mild facet osteoarthritis. There are varying degrees of mild uncovertebral joint osteoarthritis with the same degree of neuralforaminal stenosis at these levels. No soft tissue abnormality is identified. Thoracic spine: The alignment is maintained. The bones are osteopenic. Vertebral bodiesare normal in height without evidence of acute fracture. Schmorl's nodes are present at multiple levels. No high-grade central canal stenosis isseen. There is mild facet osteoarthritis at multiple levels. There are varying degrees of neural foraminal stenosis at multiple levels. Mild nodularityof the left adrenal gland. There is subsegmental atelectasis in thedependent portions of the lung bases. Lumbar spine: Trace anterolisthesis of L4 on L5. The alignment is otherwisemaintained. Vertebral bodies are normal in height without evidence of acutefracture. There is diffuse disc bulge at multiple levels. Mild to moderatemultilevel spinal canal stenosis is seen, worst at L4-L5 where it is at least moderate. There is mild to advanced facet osteoarthritis at multiple levels. There are varying degrees of neural foraminal stenosis atmultiple levels. There is atherosclerotic calcification of the abdominal aortaand its branch vessels. IMPRESSION: 1.No evidence of acute fracture in the cervical, thoracic, or lumbarspine. 2.Please refer to the concurrent, dedicated body report for findings inthe chest, abdomen, and pelvis. > Dictated by Parrish Laguna MD, MD (cco & president). I, Vincenzo Nascimento MD have personally reviewed and interpretedthis examination/study. > Interpreting Provider: Vincenzo Nascimento MD on 09/30/2022 4:52 PM Lurdes Reyes MD CT ORDERABLES * CT HEAD WO CONTRAST - Head Trauma, CSF leak, mental status changes (09/30/2022 4:32 PM CDT) Anatomical Region Laterality Modality Head Computed Tomogra phy 09/30/2022 4:23 PM CDT Impressions 09/30/2022 4:36 PM CDT IMPRESSION: 1.No acute intracranial hemorrhage, midline shift, or significant mass effect. > Interpreting Provider: Vincenzo Nascimento MD on 09/30/2022 4:36 PM Narrative 09/30/2022 4:36 PM CDT PROCEDURE: ??CT HEAD WO CONTRAST, DATE/TIME OF EXAM: ??09/30/2022 4:34 PM, LOCATION ??[facility] INDICATION: Trauma EXAMINATION: Computed tomography (CT) of the head without contrast ADDITIONAL CLINICAL INFORMATION: Ordering Provider Reason For Exam: ??Trauma. Technologist Note: ??None. Additional: ??None. ?? TECHNIQUE: CT of the head was performed without contrast according to standard protocol. CT dose reduction technique was used, including Automated Exposure Control. COMPARISON: No prior study is available for comparison at the time of this dictation. FINDINGS: No acute intra- or extra-axial fluid collections are identified. Mild nonspecific prominence of the sulci along the parietal regions near the vertex. The ventricles are of normal size, shape, and morphology. The basilar cisterns are patent. No mass effect or midline shift is seen. The hemphill-white matter differentiation is normal. Brain parenchyma appears grossly unremarkable for the patient's stated age. No acute calvarial fracture is identified. The orbits appear normal. There is mild paranasal sinus disease. The mastoid air cells are clear. No soft tissue abnormality is identified. Scattered periapical lucencies. Procedure Note Vincenzo Nascimento MD - 09/30/2022 PROCEDURE: CT HEAD WO CONTRAST, DATE/TIME OF EXAM: 09/30/2022 4:34 PM, LOCATION [facility] INDICATION: Trauma EXAMINATION: Computed tomography (CT) of the head without contrast ADDITIONAL CLINICAL INFORMATION: Ordering Provider Reason For Exam: Trauma. Technologist Note: None. Additional: None. TECHNIQUE: CT of the head was performed without contrast according to standard protocol. CT dose reduction technique was used, including Automated Exposure Control. COMPARISON: No prior study is available for comparison at the time ofthis dictation. FINDINGS: No acute intra- or extra-axial fluid collections are identified. Mild nonspecific prominence of the sulci along the parietal regions near the vertex. The ventricles are of normal size, shape, and morphology. The basilar cisterns are patent. No mass effect or midline shift is seen.The hemphill-white matter differentiation is normal. Brain parenchyma appears grossly unremarkable for the patient's stated age. No acute calvarial fracture is identified. The orbits appear normal. There is mildparanasal sinus disease. The mastoid air cells are clear. No soft tissueabnormality is identified. Scattered periapical lucencies. IMPRESSION: 1.No acute intracranial hemorrhage, midline shift, or significant mass effect. > Interpreting Provider: Vincenzo Nascimento MD on 09/30/2022 4:36 PM Lurdes Reyes MD CT ORDERABLES * XR CHEST 1VW PORTABLE (09/30/2022 3:39 PM CDT) Anatomical Region Laterality Modality Chest Radiographic Meg ging 09/30/2022 3:38 PM CDT Narrative 10/01/2022 11:01 AM CDT PROCEDURE: ??XR CHEST 1VW PORTABLE, DATE/TIME OF EXAM: ??09/30/2022 3:25 PM, LOCATION ??[facility] INDICATION: Trauma COMPARISON: Chest x-ray from 09/18/2013 FINDINGS/IMPRESSION: There is no focal consolidation, pleural effusion, or pneumothorax. The cardiomediastinal silhouette is normal. The visible bony thorax is intact. Report dictated by Parrish Laguna DO (cco & president). IParrish DO have personally reviewed and interpreted this examination/study. > Interpreting Provider: Parrish Albert DO on 10/01/2022 11:01 AM Procedure Note Parrish Albert DO - 10/01/2022 PROCEDURE: XR CHEST 1VW PORTABLE, DATE/TIME OF EXAM: 09/30/2022 3:25 PM, LOCATION [facility] INDICATION: Trauma COMPARISON: Chest x-ray from 09/18/2013 FINDINGS/IMPRESSION: There is no focal consolidation, pleural effusion, or pneumothorax. The cardiomediastinal silhouette is normal. The visible bony thorax isintact. Report dictated by Parrish Laguna DO (cco & president). Parrish Hayes DO have personally reviewed and interpreted this examination/study. > Interpreting Provider: Parrish Albert DO on 10/01/2022 11:01 AM Lurdes Reyes MD DIAGNOSTIC IMAGING O RDERABLES * XR FEMUR RIGHT 2VW (09/30/2022 3:39 PM CDT) Anatomical Region Laterality Modality Lower Extremity Radiographic Meg ging 09/30/2022 3:41 PM CDT Impressions 10/01/2022 11:01 AM CDT IMPRESSION: No acute femoral fracture identified. Report dictated by Parrish Laguna DO (cco & president). Parrish Hayes DO have personally reviewed and interpreted this examination/study. > Interpreting Provider: Parrish Albert DO on 10/01/2022 11:01 AM Narrative 10/01/2022 11:01 AM CDT PROCEDURE: ??XR FEMUR RIGHT 2VW, DATE/TIME OF EXAM: ??09/30/2022 3:39 PM, LOCATION ??[facility] INDICATION: S09.90XA: Injury of head, initial encounter COMPARISON: None. FINDINGS: The femur is intact without acute fracture. The joint spaces are preserved. Bone density and texture are normal. Procedure Note Parrish Albert DO - 10/01/2022 PROCEDURE: XR FEMUR RIGHT 2VW, DATE/TIME OF EXAM: 09/30/2022 3:39 PM, LOCATION [facility] INDICATION: S09.90XA: Injury of head, initial encounter COMPARISON: None. FINDINGS: The femur is intact without acute fracture. The joint spaces arepreserved. Bone density and texture are normal. IMPRESSION: No acute femoral fracture identified. Report dictated by Parrish Laguna DO (cco & president). Parrish Hayes DO have personally reviewed and interpreted this examination/study. > Interpreting Provider: Parrish Albert DO on 10/01/2022 11:01 AM Lurdes Reyes MD DIAGNOSTIC IMAGING O RDERABLES * XR PELVIS 1 OR 2VW (09/30/2022 3:39 PM CDT) Anatomical Region Laterality Modality Pelvis Radiographic Meg ging 09/30/2022 3:39 PM CDT Impressions 10/01/2022 11:01 AM CDT IMPRESSION: No acute fracture identified. Report dictated by Parrish Laguna DO (cco & president). Parrish Hayes DO have personally reviewed and interpreted this examination/study. > Interpreting Provider: Parrish Albert DO on 10/01/2022 11:01 AM Narrative 10/01/2022 11:01 AM CDT PROCEDURE: ??XR PELVIS 1 OR 2VW, DATE/TIME OF EXAM: ??09/30/2022 3:39 PM, LOCATION ??[facility] INDICATION: Trauma Fracture suspected COMPARISON: None. FINDINGS: No acute fracture is identified. The femoral heads appear well-seated within their respective acetabula. The pubic symphysis is intact. Bone density and texture are normal. The sacroiliac joints are normal. Procedure Note Parrish Albert DO - 10/01/2022 PROCEDURE: XR PELVIS 1 OR 2VW, DATE/TIME OF EXAM: 09/30/2022 3:39 PM, LOCATION [facility] INDICATION: Trauma Fracture suspected COMPARISON: None. FINDINGS: No acute fracture is identified. The femoral heads appear well-seated within their respective acetabula. The pubic symphysis is intact. Bone density and texture are normal. The sacroiliac joints are normal. IMPRESSION: No acute fracture identified. Report dictated by Parrish Laguna DO (cco & president). Parrish Hayes DO have personally reviewed and interpreted this examination/study. > Interpreting Provider: Parrish Albert DO on 10/01/2022 11:01 AM Lurdes Reyes MD DIAGNOSTIC IMAGING O RDERABLES * XR FEMUR LEFT 2VW (09/30/2022 3:38 PM CDT) Anatomical Region Laterality Modality Lower Extremity Radiographic Meg ging 09/30/2022 3:43 PM CDT Impressions 10/01/2022 11:01 AM CDT IMPRESSION: No acute femoral fracture identified. Report dictated by Parrish Laguna DO (cco & president). Parrish Hayes DO have personally reviewed and interpreted this examination/study. > Interpreting Provider: Parrish Albert DO on 10/01/2022 11:01 AM Narrative 10/01/2022 11:01 AM CDT PROCEDURE: ??XR FEMUR LEFT 2VW, DATE/TIME OF EXAM: ??09/30/2022 3:38 PM, LOCATION ??[facility] INDICATION: S09.90XA: Injury of head, initial encounter COMPARISON: None. FINDINGS: The femur is intact without acute fracture. The joint spaces are preserved. Bone density and texture are normal. Procedure Note Parrish Albert DO - 10/01/2022 PROCEDURE: XR FEMUR LEFT 2VW, DATE/TIME OF EXAM: 09/30/2022 3:38 PM, LOCATION [facility] INDICATION: S09.90XA: Injury of head, initial encounter COMPARISON: None. FINDINGS: The femur is intact without acute fracture. The joint spaces arepreserved. Bone density and texture are normal. IMPRESSION: No acute femoral fracture identified. Report dictated by Parrish Laguna DO (cco & president). Parrish Hayes DO have personally reviewed and interpreted this examination/study. > Interpreting Provider: Parrish Albert DO on 10/01/2022 11:01 AM Lurdes Reyes MD DIAGNOSTIC IMAGING O RDERABLES * TEG 6 GLOBAL HEMOSTASIS W/ LYSIS (09/30/2022 3:21 PM CDT) Pathologist [facility] Citrated Kaolin R (Reaction Time) 7.3 4.6 - 9.1 min 09/30/2022 4:35 PM CDT [facility] Citrated Kaolin LY30 (Lysis) 1.4 0.0 - 2.6 % 09/30/2022 4:35 PM CDT [facility] Citrated Functional Fibrinogen MA (Max Amplitude) 23.2 15.0 - 32.0 mm 09/30/2022 4:35 PM T [facility] Citrated RapidTEG MA (Max Amplitude) 65.5 52.0 - 70.0 mm 09/30/2022 4:35 PM T [facility] Blood BLOOD SPECIMEN / Unknown Venipuncture / Unknown 09/30/2022 3:21 PM CDT 09/30/2022 3:30 PM CDT Lurdes Reyes MD LAB - HEMATOLOGY ORD ERABLES [facility] [address] [place] [address], [facility] [phone] * (ABNORMAL) TEG 6S PLATELET MAPPING (09/30/2022 3:21 PM CDT) TEGPLM (Max Amplitude) Koalin 62.6 53.0 - 68.0 mm 09/30/2022 4:25 PM [facility] TEGPLM (Max Amplitude) ACTF 11.6 2.0 - 19.0 mm 09/30/2022 4:25 PM [facility] TEGPLM (Max Amplitude) ADP 55.0 45.0 - 69.0 mm 09/30/2022 4:25 PM [facility] TEGPLM (Max Amplitude) AA 23.5(L) 51.0 - 71.0 mm 09/30/2022 4:25 PM [facility] Comment:AA MA below normal r mickie. Inhibition present. TEGPLM %Inhibition ADP 14.9 0.0 - 17.0 % 09/30/2022 4:25 PM [facility] TEGPLM %Inhibition AA 76.7(H) 0.0 - 11.0 % 09/30/2022 4:25 PM [facility] TEGPLM %Aggregation ADP 85.1 83.0 - 100.0 % 09/30/2022 4:25 PM [facility] TEGPLM % Aggregation AA 23.3(L) 89.0 - 100.0 % 09/30/2022 4:25 PM CDT [facility] Blood BLOOD SPECIMEN / Unknown Venipuncture / Unknown 09/30/2022 3:21 PM CDT 09/30/2022 3:30 PM CDT Ludres Reyes MD LAB - HEMATOLOGY ORD ERABLES Performing Organization Address City/[facility]/ZIP Co de Phone Number [address] [address], [facility] [phone] * PTT [facility] (09/30/2022 3:21 PM CDT) APTT 31.2 23.0 - 38.4 Seconds 09/30/2022 3:57 PM CDT [facility] Comment:Suggested therapeuti c range for full dose I.V. unfractionated heparin therapy for venous thromboembolism is 71 to 109 seconds. Blood BLOOD SPECIMEN / Unknown Venipuncture / Unknown 09/30/2022 3:21 PM CDT 09/30/2022 3:29 PM CDT Lurdes Reyes MD LAB - COAGULATION OR DERABLES Performing Organization Address [facility] Co de Phone Number [address] [address], [facility] [phone] * PT-INR [facility] (09/30/2022 3:21 PM CDT) Only the most recent of2 resultswithin the time period is included. PT 13.1 12.1 - 14.8 Seconds 09/30/2022 3:57 PM CDT [facility] INR 1.0 See Comment 09/30/2022 3:57 PM CDT [facility] Comment:The suggested therap eutic range for standard coumadin (warfarin) therapy is an INR of 2.0-3.0. For high-risk patients (Mechanical Mitral Valve Prosthesis, etc.), the suggested prophylactic therapeutic range is an INR of 2.5-3.5. Blood BLOOD SPECIMEN / Unknown Venipuncture / Unknown 09/30/2022 3:21 PM CDT 09/30/2022 3:29 PM CDT Lurdes Reyes MD LAB - COAGULATION OR DERABLES [facility] [address] [place] [id number], [place] [phone] * TYPE + SCREEN PANEL (09/30/2022 3:21 PM CDT) [facility] Antibody Screen NEG 4:23 PM CDT [facility] ABO Rh O POS 09/30/2022 4:23 PM CDT [facility] Blood Bank BLOOD SPECIMEN / Unknown Venipuncture / Unknown 09/30/2022 3:21 PM CDT 09/30/2022 3:31 PM CDT Lurdes Reyes MD LAB - BLOOD BANK ORD ERABLES Performing Organization Address City/[facility]/ZIP Co de Phone Number [facility] [address] [place] [address], [place] [phone] * (ABNORMAL) BASIC METABOLIC PANEL (CALCIUM TOTAL) (09/30/2022 3:21 PM CDT) [facility] BUN 15 7 - 26 mg/dL 09/30/2022 4:15 PM CDT [facility] Creatinine 0.97(H) 0.56 - 0.96 mg/dL 09/30/2022 4:15 PM CDT [facility] Sodium 139 136 - 145 mmol/L 09/30/2022 4:15 PM CDT [facility] Potassium 3.7 3.5 - 4.5 mmol/L 09/30/2022 4:15 PM CDT [facility] Chloride 106 98 - 107 mmol/L 09/30/2022 4:15 PM CDT [facility] CO2 22 22 - 29 mmol/L 09/30/2022 4:15 PM CDT [facility] Glucose 155(H) 70 - 115 mg/dL 09/30/2022 4:15 PM CDT [facility] Calcium 9.6 8.4 - 10.2 mg/dL 09/30/2022 4:15 PM CDT [facility] Anion Gap 15 8 - 18 09/30/2022 4:15 PM T [facility] BUN/Creatinine Ratio 15 7 - 23 09/30/2022 4:15 PM T [facility] Osmolality Calculated 292 270 - 300 mOsm/kg 09/30/2022 4:15 PM T [facility] eGFR by CKD-EPI 74(L) >=90 mL/min/1.7 3 m2 09/30/2022 4:15 PM CDT [facility] Blood BLOOD SPECIMEN / Unknown Venipuncture / Unknown 09/30/2022 3:21 PM CDT 09/30/2022 3:29 PM CDT Lurdes Reyes MD LAB - CHEMISTRY ORDShonda HEART Performing Organization Address [facility]/State/ZIP Co de Phone Number [facility] [address] [place] [address], [facility] [phone] * ALCOHOL ETHYL BLOOD (09/30/2022 3:21 PM CDT) Ethanol (mg/dL) <10 <10 mg/dL 4:01 PM T [facility] Ethanol Calculated (g/dL) <0.010 <=0.010 g/dL 09/30/2022 4:01 PM T [facility] Blood BLOOD SPECIMEN / Unknown Venipuncture / Unknown 09/30/2022 3:21 PM CDT 09/30/2022 3:29 PM CDT Narrative [facility] - 09/30/2022 4:01 PM CDT Ethanol Interp <10: None Detected. Depression of SOFTWARE SECURITY CONSULTANT: >100 mg/dl Potentially Critical: >250 mg/dl Potentially Fatal >400 mg/dl Ethanol in the patient's blood will contribute to the osmolar gap. Ethanol's contribution to the osmolar gap can be estimated by dividing the concentration of ethanol in mg/dL by 4.6. This test is for clinical use only and does not equal a CON for legal purposes. Lurdes Reyes MD LAB - CHEMISTRY ORDE RABAIDEN [facility] [address] [place] [address], [facility] [phone] * HCG URINE QUALITATIVE - POCT (IP) [facility] (09/08/2013 8:52 PM CDT) Only the most recent of2 resultswithin the time period is included. Test Urine Negative [facility] Urine specimen (specimen) 09/08/2013 8:52 PM CDT Xavi Shukla MD LAB - POINT OF CARE ORDERABLES Performing Organization Address [facility]/ZIP Co de Phone Number [facility] * (ABNORMAL) URINALYSIS W/MICROSCOPIC NO CULTURE (09/08/2013 8:52 PM CDT) Color UA Yellow Straw, Yellow, Colorless, Light Yellow [facility] Clarity UA Hazy(A) Clear [facility] Specific [place] UA 1.021 1.001 - 1.030 [facility] pH UA 5.5 5.0 - 8.0 [facility] Protein UA 30(A) <=20 mg/dL [facility] Glucose UA Negative Negative mg/dL [facility] Ketone UA Trace(A) Negative mg/dL [facility] Bilirubin UA Negative Negative mg/dL [facility] Blood UA Negative Negative [facility] Nitrite UA Negative Negative [facility] Leukocyte Esterase Large(A) Negative [facility] Urobilinogen UA 3.0(H) <2.0 mg/dL [facility] RBC UA 4 0 - 8 /HPF [facility] WBC UA 16(H) 0 - 2 /HPF [facility] Bacteria UA Rare Rare, Occasional, None /HPF [facility] Squamous Epithelial Cells UA 11(H) 0 - 1 /HPF [facility] Mucus UA Many(A) None /LPF [facility] Urine specimen (specimen) 09/08/2013 8:52 PM CDT 09/08/2013 8:59 PM CDT Xavi Shukla MD LAB - URINALYSIS ORD ERABLES Performing Organization Address City/[facility]/ZIP Co de Phone Number [address] [phone] * TROPONIN I (09/08/2013 6:15 PM CDT) Troponin I <0.032 <0.032 ng/mL [facility] Blood specimen (specimen) BLOOD SPECIMEN / Unknown 09/08/2013 6:15 PM CDT 09/08/2013 6:19 PM CDT Historical Provider LAB - CHEMISTRY O OLIVIA Performing Organization Address [facility]/ZIP Co de Phone Number [address] [phone] * LIPASE BLOOD (09/08/2013 6:15 PM CDT) Only the most recent of2 resultswithin the time period is included. Lipase 30 8 - 78 Units/L [facility] Blood specimen (specimen) BLOOD SPECIMEN / Unknown 09/08/2013 6:15 PM CDT 09/08/2013 8:31 PM CDT Xavi Shukla MD LAB - CHEMISTRY LIN [facility]ART Performing Organization Address [facility] Co de Phone Number [address] [phone] * CK + CKMB PANEL (09/08/2013 6:15 PM CDT) CK Total 37 30 - 200 Units/L [facility] CK-MB 0.3 0.0 - 6.6 ng/mL [facility] Blood specimen (specimen) BLOOD SPECIMEN / Unknown 09/08/2013 6:15 PM CDT 09/08/2013 6:19 PM CDT Historical Provider LAB - CHEMISTRY Makayla BAKER Performing Organization Address [facility]/ZIP Co de Phone Number [address] [phone] * XR CHEST 2VW (09/08/2013 4:35 PM CDT) Anatomical Region Laterality Modality Chest Other Impressions 09/09/2013 7:25 AM CDT Impression: No acute pulmonary disease. Report dictated by Ignacio Zamarripa MD (cco & president). This report was approved ??by Ignacio Zamarripa M.D. ?? on 09/09/2013 7:[address] SABINA Hayes M.D. have personally reviewed and interpreted this examination/study. This report was electronically signed by SABINA FONSECA M.D. ??on 09/09/2013 7:25 AM . Narrative 09/09/2013 7:25 AM CDT Exam: Chest X-ray, 2 views Date: 09/08/2013 History: chest pain Comparison: None available Findings: There is no focal consolidation, pleural effusion, or pneumothorax. The cardiomediastinal silhouette is normal. The visible bony thorax is intact. Procedure Note Sabina Fonseca MD - 06/30/2017 Exam: Chest X-ray, 2 views Date: 09/08/2013 History: chest pain Comparison: None available Findings: There is no focal consolidation, pleural effusion, or pneumothorax. Thecardiomediastinal silhouette is normal. The visible bony thorax isintact. IMPRESSION Impression: No acute pulmonary disease. Report dictated by Ignacio Zamarripa MD (cco & president). This report was approved by Ignacio Zamarripa M.D. on 09/09/2013 7:[address] SABINA Hayes M.D. have personally reviewed and interpretedthis examination/study. This report was electronically signed by SABINA FONSECA M.D. on09/09/2013 7:25 AM . Historical Provider MD ESTER Paulson ORDERABLES * EKG 12-LEAD (09/08/2013 12:00 AM CDT) Pathologist [facility] EKG [facility] Comment: Exam Date/Time: ?? Sep 08 2013 15:53:30 Test Reason : chest pain Blood Pressure : / mmHG Vent. Rate : 109 BPM ? Atrial Rate : 109 BPM ?? P-R Int : 148 ms ?QRS Dur : 074 ms ?QT Int : 334 ms ? P-R-T Axes : 074 -18 054 degrees ?? QTc Int : 449 ms Sinus tachycardia Possible Left atrial enlargement Left ventricular hypertrophy Abnormal ECG No previous ECGs available Confirmed by Tate FITZGERALD, IVET ([id number]), pictures editor LORI RIOS ([id number]) on 09/15/2013 2:56:28 PM Referred By: REFERRING NO ? Confirmed By:IVET FITZGERALD M.D 09/08/2013 Jane Pollard MD ECG ORDERABLES Performing Organization Address City/State/[facility] Co de Phone Number [facility] Care Teams [employer] Science Teacher Relationship Specialty Start Date End Date Sofia Healy MD [address] [phone] PCP - General 12/06/17
--- OUTSIDE RECORDS SUMMARY | 2024-05-02 14:09 | XMS_ITS | Referral Summary ---
Author Organization [facility] Address [address] [place] [address] Care Team Providers Care Plant Manager Name Role Phone Sofia Healy MD Primary Care Provider Source Comments [facility] [employer],non-owned Affiliates and Associated Physician Practices is amultiple site organization consisting of ambulatory clinics and hospital sitesin [place], [place], [place] and [place]. This disclosure is being madepursuant to the Care Everywhere program and may not contain all information available regarding this patient. Last updated 17.[facility] [employer] Allergies No known active allergies Medications * [...] Mass Index 43.93 11/09/2022 12:17 PM CDT Functional Status Functional Status Response Date of Assess ment Is person deaf or have serious hearing difficult y? No 09/30/2022 Is person blind or have serious difficulty seein g? No 09/30/2022 Does person have serious dif ficulty walking/climbing stairs? No 09/30/2022 Does person have difficulty dressing/bathing? No 09/30/2022 Does person have difficulty doing errands alone? No 09/30/2022 Cognitive Status Response Date of Assessm ent Does person have difficulty concentrating/remembering/making decisions? No 09/30/2022 Plan of Treatment Not on file Procedures Procedure Name Priority Date/Time Associated Diagnosis Comments COMPREHENSIVE METABOLIC PANEL STAT 10/06/2022 4:52 PM CDT from Last 3 Months or Most Recently Relevant to Health Maintenance Results * (ABNORMAL) COMPREHENSIVE METABOLIC PANEL (10/06/2022 4:52 PM CDT) BUN 11 7 - 26 mg/dL 10/06/2022 5:36 PM CDT [facility] Creatinine 0.78 0.56 - 0.96 mg/dL 10/06/2022 5:36 PM CDT [facility] Sodium 138 136 - 145 mmol/L 10/06/2022 5:36 PM CDT [facility] Potassium 4.4 3.5 - 4.5 mmol/L 10/06/2022 5:36 PM [facility] Comment:Hemolysis detected i n this specimen. Hemolysis may cause false elevations in potassium leading to pseudohyperkalemia or masked hypokalemia. Recommend repeat testing if clinically indicated. Chloride 105 98 - 107 mmol/L 10/06/2022 5:36 PM CDT [facility] CO2 20(L) 22 - 29 mmol/L 10/06/2022 5:36 PM CDT [facility] Glucose 101 70 - 115 mg/dL 10/06/2022 5:36 PM [facility] Calcium 9.0 8.4 - 10.2 mg/dL 10/06/2022 5:36 PM [facility] Protein Total 7.4 6.0 - 8.3 g/dL 10/06/2022 5:36 PM [facility] Comment:Hemolysis detected i n this specimen. Hemolysis is known to cause elevations in this analyte. Caution should be exercised in the interpretation of this result. Recommend repeat testing if clinically indicated. Albumin 3.7 3.4 - 5.0 g/dL 10/06/2022 5:36 PM [facility] Bilirubin Total 0.8 0.2 - 1.2 mg/dL 10/06/2022 5:36 PM [facility] Alkaline Phosphatase 108 40 - 150 U/L 10/06/2022 5:36 PM [facility] ALT 87(H) 5 - 55 U/L 10/06/2022 5:36 PM [facility] AST 31 5 - 34 U/L 10/06/2022 5:36 PM [facility] Comment:Hemolysis detected i n this specimen. Hemolysis is known to cause elevations in this analyte. Caution should be exercised in the interpretation of this result. Recommend repeat testing if clinically indicated. Anion Gap 17 8 - 18 10/06/2022 5:36 PM [facility] BUN/Creatinine Ratio 14 7 - 23 09/2022 5:36 PM [facility] Osmolality Calculated 286 270 - 300 mOsm/kg 10/06/2022 5:36 PM [facility] Albumin/Globulin Ratio 1.0(L) 1.1 - 2.3 5:36 PM [facility] eGFR by CKD-EPI >90 >=90 mL/min/1. 73 m2 10/06/2022 5:36 PM [facility] Blood BLOOD SPECIMEN / Unknown Venipuncture / Unknown 10/06/2022 4:52 PM CDT 10/06/2022 5:01 PM T Lavinia Mendoza LAB ASSISTANT-[facility] LIA[facility] ADVISER [facility] - CHEMIS TRY ORDERABLES [facility] [address] [place] [address], [facility] [phone] from Last 3 Months or Most Recently Relevant to Health Maintenance Advance Directives * Full Code (Latest Code Status on File) Date Activated Date Inactivated Comments 09/30/2022 5:28 PM 10/01/2022 4:37 PM Care Teams Plant Manager Relationship Specialty Start Date End Date Sofia Healy MD [address] [place] [address] PCP - General 12/06/17
--- OUTSIDE RECORDS SUMMARY | 2024-05-02 14:09 | XMS_ITS | Continuity of Care Document ---
Author Organization [facility] Address [address] [place] [address] [place] [address] Phone Care Team Providers Care Tours Hostess Name Role Phone Darnell Joiner MD Unavailable Unavailable Allergies, Adverse Reactions, Alerts Substance Reaction Status Criticality No Known Allergies Active No Inform ation Medications Medication Instructions Dosage Effective Dates (start - stop) Status Comments omeprazole 20 mg capsule,delayed release take 1 capsule by oral route every day before a meal 20 MG - Active Wellbutrin XL 150 mg 24 hr tablet, extended release take 1 tablet by oral route every morning 150 MG - Active Celexa 20 mg tablet take 1 tablet by ora l route every day 20 MG - Active Norvasc 10 mg tablet take 1 tablet by or al route every day 10 MG - Active Procedures Procedure Date OFFICE/OUTPATIENT VISIT, [facility] Advance Directives Directive Yes / No Effective Date File Name No Information Encounters Encounter Description Practice Location Reason(s) For Visit Diagnoses Date Provider Providers Copied on Encounter OFFICE/OUTPA TIENT VISIT, [facility], [address] [place], [place], [id number], [place] tel:[phone] [facility] HTN (chief complaint) anxiety1 (chief complaint) stomach (chief complaint) Essential (primary) hypertensionGERD w/o esophagitisGastropa resisAnxiolytic dependence [address], [address] [place], [id number] , [place]. tel:[phone] Referring Provider: Darnell Joiner, [address] [facility] [place], [place], [id number]. tel:[phone] Family History Family Member Type Diagnosis Age At Onset Brother Problem (finding) ? heart disease but not sure Father Problem (finding) Alive and well Sister Problem (finding) of cervcial CA Mother Problem (finding) Alive and well Payers Payer name Insurance type Covered democrat ID Authoriza tion(s) No Information Social History Type Description Quantity Date Captured Comments Alcohol Use Details Caffeine Use Details Unknown Tobacco Use Status Cigarette smoker Smoking Status Current some day smoker Smoking Tobacco Use Details Cigarette: No Details Available Cigarette: No Details Available Sex Female Vital Signs Date / Time: Height Weight BMI Pulse Rate Blood Pressure Temperature Respiratory Rate Body Surface Area Head Circumference BMI percentile Pulse Ox Inhaled Ox 2:20 PM 63.00 in 208.00 lbs 36.8 5 kg/m eter (2) 101 /min 158/109 mm[Hg] 98.0 F 18 /min Chief Complaint And Reason For Visit From encounter dated '05/24/2016 13:00'. HTN (chief complaint). Description: Pt has chronic HTN. Pt has not been seeing MD and she has not been taking any meds for several years. Pt denies any chest pain or headache. anxiety1 (chief complaint). Description: Pt has chronic anxiety and depression. Pt has deprssed mood. . Pt denies any suicidal or homicidal thought. Pt has crying spells. Pt states that she does not want to leave the house at all. Pt tried lexapro, prozac, paxil and effexor but none worked. Pt usedto see psychiatrist but not seen one for 6 years. stomach (chief complaint). Description: Pt states that she has chornic stomach issue with frequent nausea, vomiting. Pt has daily GERD. Pt told me she has gastroparesis. Pt still has her gallbladder.Pt denies any abdominal pain Plan Of Treatment Date Type Action Status Referral Ordered: US EXAM, ABDOM, COMPLETE ordered History Of Present Illness Encounter Date Complaint History Of Prese nt Illness HTN Pt has chronic H [place]. Pt has not been seeing MD and she has not been taking any meds for several years. Pt denies any chest pain or headache. stomach Pt states that s he has chornic stomach issue with frequent nausea, vomiting. Pt has daily GERD. Pt told me she has gastroparesis. Pt still has her gallbladder. Pt denies any abdominal pain anxiety1 Pt has chronic a nxiety and depression. Pt has deprssed mood. . Pt denies any suicidal or homicidal thought. Pt has crying spells. Pt states that she does not want to leave the house at all. Pt tried lexapro, prozac, paxil and effexor but none worked. Pt used to see psychiatrist but not seen one for 6 years. Instructions Date Instruction Additional Infor mation Prescribed Activity and Exercise Education Related to Dietary Surveillance and Counseling Prescribed Diet Educ ation/Lifestyle Education Regarding Diet Related to Dietary Surveillance and Counseling Assessments Type Assessment Date assessment Essential (primary) hypertension assessment GERD w/o esophagitis assessment Gastroparesis assessment Anxiolytic dependence 7 Mental Status Date Cognitive Assessment Orientation - [place] ed to time, place, person, situation.
--- OUTSIDE RECORDS SUMMARY | 2024-05-02 14:09 | XMS_ITS | CONTINUITY OF CARE DOCUMENT ---
Author Name landenjennyiveth Address Unknown Organization [facility] Address [address] [place] [address] Phone [phone] Care Team Providers Care Industrial [employer]age Servicer Name Role Phone Shireen Bryan MD Unavailable ELISA VASQUEZ MD Unavailable ELISA VASQUEZ MD Unavailable PROBLEMS Condition Status Date Provider Notes Chest pain-type to be determined active Francisco Javier Mathews MD Tobacco abuse active Moses Mathews MD FAMILY HISTORY OF HEART DISEASE active Marvin Mathews MD dad has it Asthma;has lung md active Moses Mathews MD HTN essential active Moses Mathews MD Screening active Moses Mathews MD Hyperlipidemia active Moses Mathews MD Leukocytosis active Moses Mathews MD fatty liver active Moses Mathews MD Obesity active Moses Mathews MD ? Sleep apnea active Moses Mathews MD Fatigue active Moses Mathews MD SVT active Shireen Bryan MD Pulmonary hypertension active Sheree mustafa [employer] ENCOUNTERS Date Type Provider Location Encounter Diag nosis 05/23 - 05/23 In-person encounter Office Visit Shireen Bryan MD [facility] Pulmonary hypertension 05/02 - 05/03 In-person encounter Office Visit Shireen Bryan MD [facility] SVT 04/29 - 04/29 In-person encounter Office Visit Moses Mathews MD [facility] Chest pain-type to be determinedTobacco abuseFAMILY HISTORY OF HEART DISEASEAsthma;has lung mdHTN essentialScreeningHyperlipidemiaLeukocytosisfatty liverObesity? Sleep apneaFatigue VITAL SIGNS Date Observation Value Provider Body Mass Index (Ratio) 46.58 kg/m2 Amanda Bryan MD blood pressure, cuff size large Ja rret blood pressure, diastolic 118 mm[Hg] Ja rret blood pressure, systolic 175 mm[Hg] Jar ret pulse rate 73 /min Luis Alberto oxygen saturation, oximetry 97 % Luis Alberto respiratory rate E&M 16 /min Luis Alberto weight E&M 263 [lb_av] Luis Alberto height E&M 63 [in_i] Luis Alberto Body Mass Index (Ratio) 45.87 kg/m2 Amanda Bryan MD blood pressure, diastolic 108 mm[Hg] Li [facility] blood pressure, systolic 190 mm[Hg] [place]ell [facility]Logic pulse rate 91 /min Luis Alberto blood pressure, cuff size large Ja rret blood pressure, diastolic 108 mm[Hg] Ja rret blood pressure, systolic 190 mm[Hg] Jar ret oxygen saturation, oximetry 97 % Luis Alberto respiratory rate E&M 16 /min Luis Alberto weight E&M 259 [lb_av] Luis Alberto y height E&M 63 [in_i] Luis Alberto erda y Body Mass Index (Ratio) 37.87 kg/m2 Marvin Mathews MD blood pressure, resting Yes Bernarda Donnelly blood pressure, diastolic 84 mm[Hg] Jose Donnelly blood pressure, systolic 130 mm[Hg] Rose Donnelly oxygen saturation, oximetry 96 % Cade Donnelly respiratory rate E&M 18 /min Swathi Donnelly pulse rate 73 /min Cade bell weight E&M 213.8 [lb_av] Cade cope height E&M 63 [in_i] Cade bell ALLERGIES Allergy Name Onset Date Reaction Criticality Status ARTICHOKES High Criticality active RESULTS Date Observation Value Provider Reference Range Interpretation Location 9 pro brain natriuretic peptide 124 pg/mL [facility] 0-130 9 ferritin, serum 106 ng/mL [facility] 15-150 9 B-12, serum 586 pg/mL [facility] 232-1245 9 microalbumin/creatin ine ratio, urine <4.6 mg/g creat [facility] 0.0-30.0 9 microalbumin, random, urine <3.0 ug/mL [facility] Not Estab. 9 creatinine, random, urine 64.8 mg/dL [facility] Not Estab. 9 iron saturation percent, serum 38 % [facility] 15-55 9 iron, serum 111 ug/dL [facility] 27-159 9 iron binding capacity, unsaturated 185 ug/dL [facility] [phone]/11/2 9 iron binding capacity, total 296 ug/dL [facility] 296-083 4181/11/2 9 free thyroxine index 1.8 [facility] 1.2-4.9 9 triiodothyronine resin uptake 28 % [facility] 24-39 9 thyroxine, serum, total 6.6 ug/dL [facility] 4.5-12.0 9 lipoprotein, beta, serum, point, quantitative, calculated 116 mg/dL [facility] 0-99 High 9 very low density lipoproteins 17 mg/dL [facility] 5-40 9 HDL cholesterol, serum 46 mg/dL [facility] >39 9 triglyceride, serum, random 86 mg/dL [facility] 0-149 9 cholesterol, serum 179 mg/dL [facility] 755-284 5507/11/2 9 alanine aminotransferase (SGPT), serum 21 1/L [facility] 0-32 9 aspartate aminotransferase (SGOT), serum 18 1/L [facility] 0-40 9 alkaline phosphatase, serum 72 1/L [facility] 39-117 9 bilirubin, serum, total 0.4 mg/dL [facility] 0.0-1.2 9 albumin/globulin ratio, serum 1.8 [facility] 1.2-2.2 9 globulin, serum 2.4 [facility] 1.5-4.5 9 albumin, serum 4.3 g/dL [facility] 3.5-5.5 9 protein, total, serum 6.7 g/dL [facility] 6.0-8.5 9 calcium, serum 9.3 mg/dL [facility] 8.7-10.2 9 carbon dioxide, venous blood 22 mmol/L [facility] 20-29 9 chloride, serum 98 mmol/L [facility] 96-106 9 potassium, serum 4.2 mmol/L [facility] 3.5-5.2 9 sodium, serum 136 mmol/L [facility] 322-272 8037/11/2 9 urea nitrogen/creatinine ratio, serum 15 [facility] 9-23 9 eGFR if 128 mL/min/{1 .73_m2} [facility] >59 9 eGFR if not 111 mL/min/{1 .73_m2} [facility] >59 9 creatinine, serum 0.67 mg/dL [facility] 0.57-1.00 9 urea nitrogen, blood 10 mg/dL [facility] 6-20 9 blood glucose, random 88 mg/dL [facility] 65-99 9 activated partial thromboplastin time (aPTT) 32 s [facility] 24-33 9 prothrombin time (patient) 9.9 s [facility] 9.1-12.0 9 international normalized ratio (INR) 0.9 [facility] 0.8-1.2 9 basophil count, absolute 0.0 x10E3/uL [facility] 0.0-0.2 9 Eosinophil Absolute Count 0.2 X10E3/UL [facility] 0.0-0.4 9 monocyte count, blood, automated 1.0 X10E3/UL [facility] 0.1-0.9 High 9 lymphocyte count, blood, automated 2.3 X10E3/UL [facility] 0.7-3.1 9 Absolute Neutrophils 7.3 X10E3/UL [facility] 1.4-7.0 High 9 basophils as percent of blood leukocytes 0 % [facility] Not Estab. 9 eosinophils as percent of blood leukocytes 2 % [facility] Not Estab. 9 monocytes as percent of blood leukocytes 9 % [facility] Not Estab. 9 lymphocytes as percent of blood leukocytes 21 % [facility] Not Estab. 9 neutrophils as percent of blood leukocytes 68 % [facility] Not Estab. 9 platelet count 290 X10E3/UL [facility] [phone]/11/2 9 red blood cell distribution width 13.1 % [facility] 12.3-15.4 9 mean corpuscular hemoglobin concentration, RBC 34.5 G/DL [facility] 31.5-35.7 9 mean corpuscular hemoglobin, RBC 31.3 pg [facility] 26.6-33.0 9 mean corpuscular volume, RBC 91 fL [facility] 79-97 9 hematocrit, blood 40.0 % [facility] 34.0-46.6 9 hemoglobin, blood 13.8 g/dL [facility] 11.1-15.9 9 erythrocyte (RBC) count 4.41 X10E6/UL [facility] 3.77-5.28 9 leukocyte count, blood 10.9 X10E3/UL [facility] 3.4-10.8 High HISTORY OF MEDICATION USE Medication Status Instructions Dates Provider Indications Com ments diltiazem HCl (Cardizem CD) 120 mg capsule,extended release 24hr active TAKE 1 CAPSULE BY MOUTH TWICE DAILY 04/09 Maggi Huggins Cardizem CD 120 mg capsule,extended release 24hr active Take 1 capsule by mouth twice a day 05/02 Jasmyn Dixon metoprolol tartrate 50 mg tablet active Take 1 tablet by mouth twice a day Jasmyn Dixon losartan 100 mg tablet active Take 1 tablet by mouth once a day Shireen Bryan MD atorvastatin 40 mg tablet active Take 1 tablet by mouth once a day Jasmyn Dixon diclofenac sodium 75 mg tablet,delayed release (DR/EC) active Take 1 tablet by mouth once a day Luis Alberto amol Diovan 160 mg tablet completed 1 tablet by mouth once a day 04/29 - 05/02 Shireen Bryan MD aspirin 81 mg tablet,delayed release (DR/EC) active 1 tablet by mouth once a day 04/29 Shireen Bryan MD Crestor 20 mg tablet completed 1 tablet by mouth once a day 04/29 - 05/02 Shireen Bryan MD Advil Liqui-Gel 200 mg capsule completed up to 800 mg 3 times daily - 05/23 Sheree Crawfordmiglalexa [employer] Symbicort 160-4.5 mcg/actuation HFA aerosol inhaler completed 2 puff once a day - 05/23 Luis Alberto Ventolin HFA 90 mcg/actuation HFA aerosol inhaler active as needed Shireen Bryan MD hydrochlorothiazide 25 mg tablet completed 1 tablet by mouth once a day - 05/23 Luis Alberto [facility] SOCIAL HISTORY Date Observation Value Provider personal history of marijuana use no Sheree Ventimiglia [employer] drug use no Sheree Ventimig ava [facility] alcohol use no Sheree Ventimig ava [facility] smoking/tobacco cess ation, patient education and counseling yes Sheree Ventimiglia [facility] number of years as a smoker 20 a Sheree Ventimiglia [facility] smoking history, tot al pack/day 1 Sheree Ventimiglia [facility] cigarette use yes Sheree Ventimi glia [facility] smoking status Current every day smoker A silas Ventimiglia [facility] smoking/tobacco cess ation, patient education and counseling yes Shireen Bryan MD number of years as a smoker 20 a Shireen Bryan MD smoking history, tot al pack/day 1 Shireen Bryan MD cigarette use yes Shireen Bryan MD smoking status Current every day smoker M yoselin Bryan MD smoking/tobacco cess ation, patient education and counseling yes Moses Mathews MD quit smoking, stage quit Moses stark MD social history E&M S moking History: P atient currently smokes every day. Moses Mathews MD social history reviewed E&M revi ewed - no changes required Moses Mathews MD number of years as a smoker 20 a Cade Donnelly smoking history, tot al pack/day 1 Cade Donnelly cigarette use yes Cade cope smoking status Current every day smoker M Maggie Donnelly FAMILY HISTORY Family Member Condition Mother Family History of Hy pertension: Mother Family History of Di abetes: Father Family History of Co ronary Artery Disease: INSURANCE PROVIDERS Payer name Policy type / Coverage type [place] [employer] green party ID AET [employer] [facility]ICA[facility] Medicaid [id number] [employer] [place] Medicare [id number] ADVANCE DIRECTIVES Name Date DISCUSSED - NO DECISION MADE TREATMENT PLAN Date Name Performer Cardiology:weight loss encourage dElvia [facility] Cardiology: H er updated medication list for this problem includes: Atorvastatin 40 Mg Tablet (Atorvastatin) ..... Take 1 tablet by mouth once a day [facility] Cardiology:severe on recent echo E F of 54% w ill do sleep study as concern for ASHER [facility] Cardiology:cessation encouraged. [facility] Cardiology:BP uncont rolled W ill increase cardizem g oal is BP <130/80 P atient will return in 2 weeks or sooner if needed. T he following medications were removed from the medication list: Hydrochlorothiazide 25 Mg Tablet (Hydrochlorothiazide) ..... 1 tablet by mouth once a day Her updated medication list for this problem includes: Cardizem Cd 120 Mg Capsule,extended Release 24hr (Diltiazem hcl) ..... Take 1 capsule by mouth twice a day Metoprolol Tartrate 50 Mg Tablet (Metoprolol tartrate) ..... Take 1 tablet by mouth twice a day Losartan 100 Mg Tablet (Losartan) ..... Take 1 tablet by mouth once a day Aspirin 81 Mg Tablet,delayed Release (dr/ec) (Aspirin) ..... 1 tablet by mouth once a day [facility] Cardiology:she has o beity, daytime fatigue, snoring, multiple night wakenings suggestive of ASHER w ill arrange sleep study for further evalution [facility] Cardiology:noted to have recurrent episodes of tele monitor w ill increase CCB needs IHS as concern untreated ASHER contributing H er updated medication list for this problem includes: Cardizem Cd 120 Mg Capsule,extended Release 24hr (Diltiazem hcl) ..... Take 1 capsule by mouth twice a day Metoprolol Tartrate 50 Mg Tablet (Metoprolol tartrate) ..... Take 1 tablet by mouth twice a day Aspirin 81 Mg Tablet,delayed Release (dr/ec) (Aspirin) ..... 1 tablet by mouth once a day Sheree Menon [employer] Cardiology: H er updated medication list for this problem includes: Atorvastatin 40 Mg Tablet (Atorvastatin) ..... Take 1 tablet by mouth once a day Shireen Bryan MD Cardiology: H er updated medication list for this problem includes: Ventolin Hfa 90 Mcg/actuation Hfa Aerosol Inhaler (Albuterol sulfate) ..... As needed Symbicort 160-4.5 Mcg/actuation Hfa Aerosol Inhaler (Budesonide-formoterol) ..... 2 puff once a day Shireen Bryan MD Cardiology:The Patie nt was reencouraged to stop smoking. Shireen Bryan MD Cardiology:Feels mer quent fatigue D iscussed how ASHER may be contributing to her fatigue and HTN w ill obtain home sleep study Shireen Bryan MD Cardiology:Noted on secured entrance monitor. Continues to feel frequent racing and palpitations Due to asthma, will not increase metoprolol dosage Will start Cardiazem CD 120mg daily to treat palpitations Shireen Bryan MD Cardiology:Markedly elevated today and pt reports it has been elevated at home as well. We will increase Losartan to 100mg daily B P today: 190/108 P rior BP: 130/84 (02/27/2018) Labs Reviewed: C reat: 0.67 (02/28/2018) C hol: 179 (02/28/2018) HDL: 46 (02/28/2018) LDL: 116 (02/28/2018) T (02/28/2018) The following medications were removed from the medication list: Diovan 160 Mg Tablet (Valsartan) ..... 1 tablet by mouth once a day Her updated medication list for this problem includes: Hydrochlorothiazide 25 Mg Tablet (Hydrochlorothiazide) ..... 1 tablet by mouth once a day Aspirin 81 Mg Tablet,delayed Release (dr/ec) (Aspirin) ..... 1 tablet by mouth once a day Metoprolol Tartrate 50 Mg Tablet (Metoprolol tartrate) ..... Take 1 tablet by mouth twice a day Losartan 50 Mg Tablet (Losartan) ..... Take 1 tablet by mouth once a day Shireen Bryan MD Cardiology Moses Mathews MD Cardiology Moses Mathews MD Cardiology:pt wanmts more rx Francisco Javier cris Mathews MD Cardiology Moses Mathews MD Cardiology Moses Mathews MD Cardiology Moses Mathews MD Cardiology:nml bnp a nd and trops in past, neg echo 2011 h igh dd with n eg vd amnd chest ct Moses Mathews MD Cardiology:will rx H er updated medication list for this problem includes: Crestor 20 Mg Oral Tablet (Rosuvastatin calcium) ..... One tab. daily Moses Mathews MD Cardiology:sx will mckeon Moses ugalde MD Cardiology:will refer surgery Cardona dre Mathews MD Date Name Sleep Study Home Sleep Study Home Stress Regadenoson URINALYSIS, RANDOM, MICROALB/CREATININE PROTHROMBIN TIME WIT H INR LIPID PANEL CBC (INCLUDES DIFF/P LT) STR - Adenosine Vitamin D, 25-Hydrox y VITAMIN B12 Partial Thromboplast in Time, Activated PROTHROMBIN TIME WIT H INR THYROID PANEL WITH T SH, 3RD GENERATION IRON AND TOTAL IRON BINDING CAPACITY FERRITIN PROBNP, N TERMINAL COMPREHENSIVE METABO LIC PANEL, W/EGFR Complete Echo CT, Coronary Calcium Score HISTORY OF PROCEDURES Procedure Date Procedure Name Provider Procedure Notes S tatus EKG Shireen Bryan MD complet ed EKG Shireen Bryan MD complet ed Regadenoson, 4 units Moses Mathews MD completed Cardiolite, 2 units Moses Mathews MD completed SPECT Images Noemy Morley MD complet ed Stress EKG Deejay Kirk MD complete d
--- OUTSIDE RECORDS SUMMARY | 2024-05-02 14:09 | XMS_ITS | Continuity of Care Document ---
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 Role Phone Unavailable Unavailable Unavailable Allergies, Adverse Reactions, Alerts Substance Reaction Status Criticality No Known Allergies Active No Inform ation Medications Medication Instructions Dosage Effective Dates (start - stop) Status Comments metoprolol succinate ER 25 mg tablet,extended release 24 hr take 1 tablet by oral route every day 25 MG - Active amlodipine 10 mg tablet take 1 tablet by oral route every day 10 MG - Active losartan 50 mg tablet take 1 tablet by oral route every day 50 MG - Active chlorthalidone 25 mg tablet take 1 Tablet by oral route every day 25 MG - Active ProAir HFA 90 mcg/actuation aerosol inhaler inhale 2 puff by inhalation route every 4 - 6 hours as needed - Active montelukast 10 mg tablet take 1 tablet by oral route every day in the evening 10 MG - Active citalopram 10 mg tablet take 1 tablet by oral route every day 10 MG - Active alprazolam 1 mg tablet take 1 tablet by oral route 3 times every day 1 MG - Active oxycodone-acetamino phen 10 mg-325 mg tablet take 1 tablet by oral route every 4-6 hours as needed - Active promethazine-DM 6.25 mg-15 mg/5 mL syrup take 5 milliliter by oral route every 6 hours as needed 5.00 milliliter - Active sumatriptan 50 mg tablet take 1 tablet by oral route once with fluids as early as possible after the onset of a migraine attack;may repeat after 2 hours if headache returns, not to exceed 200mgin 24hrs 50 MG - No Longer Active diazepam 10 mg tablet take 1 tablet by oral route 4 times every day 10 MG - No Longer Active fentanyl 25 mcg/hr transdermal patch apply 1 patch by transdermal route every 72 hours 25 MCG/H - No Longer Active citalopram 10 mg tablet take 1 tablet by oral route every day 10 MG - No Longer Active tramadol 50 mg tablet take 1 tablet by oral route every 6 hours as needed 50 MG - No Longer Active Endocet 10 mg-325 mg tablet take 1 tablet by oral route every 4- 6 hours as needed - No Longer Active Procedures Procedure Date OFFICE OUTPT EST 25 MIN Advance Directives Directive Yes / No Effective Date File Name No Information Encounters Encounter Description Practice Location Reason(s) For Visit Diagnoses Date Provider Providers Copied on Encounter OFFICE OUTPT EST 25 MIN [facility], [address], [place], [place], [id number] , tel: [phone] [facility] establish care (chief complaint) med refills (chief complaint) Chronic painHypertensi onAsthmaMigrai neAnxietyNause aObesityBody Mass Index 40.0-44.9, adult 201 4 No Information [facility], [address], [place], [place], [id number] , tel: [phone] Historic Immunization Location No Information 9 No Information Family History Family Member Type Diagnosis Age At Onset Problem (finding) Family history of malignant neoplasm of uterus Problem (finding) Family history of breas t cancer Problem (finding) Family history of hyper tension Problem (finding) Family history of diabetes mellitus type 2 Immunizations Vaccine Date Status Comments HEPATITIS B .5cc AGE 18 administered Sour ce: New Immunization Record Payers Payer name Insurance type Covered democrat ID Authoriza tion(s) No Information Social History Type Description Quantity Date Captured Comments Alcohol Use Details Unknown Caffeine Use Details Unknown Tobacco Use Status Smoking Status Current every day smoker Smoking Tobacco Use Details Cigarette: No Details Available Cigarette: No Details Available Sex Female Vital Signs Date / Time: Height Weight BMI Pulse Rate Blood Pressure Temperature Respiratory Rate Body Surface Area Head Circumference Head Circ. Percentile Wt./[place]. Percentile BMI percentile Pulse Ox Inhaled Ox 10:46 AM 63.00 in 111.584 kg (246.00 lbs) 43.5 8 kg/m eter (2) 87 /min 138/94 mm[Hg] Chief Complaint And Reason For Visit From encounter dated '10/08/2013 10:00'. establish care (chief complaint). Description: new patient here for medication refill and establish care pt previously seen by in [place], gInacio Ingram. pt has pill bottles with physicians name on them for alprazolam and percocet last filled in July. pt states last saw previous PCP in May. was seening him for >10 yrs and he has all my records"pt states she is transferring care b/c she recently moved to [place] after her recent divorce. she has family here.pt states she has medicare and medicaid. insurance not currently listed insystem.pt has multiple medical problems. most pressing for her are her anxiety and pain problem because she is out of her medications and needs refills. she has been making her pills stretch" until she could be seen. she is out of percocet and has one alprazolam left.previously seen by multiple specialists. pt describes seeing ortho, pain management, psychiatry, surgery both in [place] and [place]. pt states she is trying to get in to seen ortho and has called to see if pain management at [facility] is accepting new patients but she has not heard back from them. has not tried to establish with psychiatry in [place].pt states she has been on pain medication for several years for one thing or another . pt states she was previously on fentanyl patches. pt states no longer taking fentanyl patches. they were used temporarily for worsening pain after shoulder injury. pt hasa list of medications prescribed w/in past year. list includes fentayl patches, diazapam, tramadol.pt states she does not take tramadol regularly, it was given for a short time. pt states diazapam given only for MRI. it is not a regular medication for her. fentayl patches as above. pt states she has had several MRIs: knee, shoulder, back. pt states she was also going to get CT of back b/c "didn't see enough on MRI. pt states chronic nausea. taking promethazine. pt feelsit is due to gallbladder. per pt she underwent gallbladder surgery but there were significant complications and her gallbladder was not removed. recently went to ER, [facility], after fall down steps but did not stay for evaluation due to long wait. med refills (chief complaint) Reason For Referral Reason For Referral No Information Plan Of Treatment Date Type Action Status Referral Referred To: [facility] Ordered: Referrals: Pain Management. [facility]. Evaluate and treat ordered Future Order: Lab Order Pain Man agement Base Profile with Confirmation, without medMATCH, Urine ([id number]), Collected on: , Sent on: Sent Future Order: Lab Order CBC (H/H , RBC, INDICES, WBC, PLT) ([id number]), Collected on: , Sent on: Sent Future Order: Lab Order COMPREHE NSIVE METABOLIC PANEL ([id number]), Collected on: , Sent on: Sent Future Order: Lab Order POC Hemo globin A1C ([id number]), Collected on: , Sent on: Sent Future Order: Lab Order HEPATITI S B SURFACE ANTIGEN W/REFL CONFIRM ([id number]), Collected on: , Sent on: Sent Future Order: Lab Order HEPATITI S C ANTIBODY ([id number]), Collected on: , Sent on: Sent Future Order: Lab Order HIV AB, HIV 1/2, EIA, WITH REFLEXES ([id number]), Collected on: , Sent on: Sent Future Order: Lab Order RPR (DX) W/REFL TITER AND CONFIRMATORY TESTING ([id number]), Collected on: , Sent on: Sent Future Order: Lab Order TSH W/RE FLEX TO FT4 ([id number]), Collected on: , Sent on: Sent History Of Present Illness Encounter Date Complaint History Of Prese nt Illness establish care new patient here for medication refill and establish care pt previously seen by in [place], Ignacio Ingram. pt has pill bottles with physicians name on them for alprazolam and percocet last filled in July. pt states last saw previous PCP in May. was seening him for >10 yrs and he has all my records pt states she is transferring care b/c she recently moved to [place] after her recent divorce. she has family here.pt states she has medicare and medicaid. insurance not currently listed in system.pt has multiple medical problems. most pressing for her are her anxiety and pain problem because she is out of her medications and needs refills. she has been making her pills stretch until she could be seen. she is out of percocet and has one alprazolam left.previously seen by multiple specialists. pt describes seeing ortho, pain management, psychiatry, surgery both in [place] and [place]. pt states she is trying to get in to seen ortho and has called to see if pain management at [facility] is accepting new patients but she has not heard back from them. has not tried to establish with psychiatry in [place].pt states she has been on pain medication for several years for one thing or another . pt states she was previously on fentanyl patches. pt states no longer taking fentanyl patches. they were used temporarily for worsening pain after shoulder injury. pt has a list of medications prescribed w/in past year. list includes fentayl patches, diazapam, tramadol. pt states she does not take tramadol regularly, it was given for a short time. pt states diazapam given only for MRI. it is not a regular medication for her. fentayl patches as above. pt states she has had several MRIs: knee, shoulder, back. pt states she was also going to get CT of back b/c didn't see enough on MRI. pt states chronic nausea. taking promethazine. pt feels it is due to gallbladder. per pt she underwent gallbladder surgery but there were significant complications and her gallbladder was not removed. recently went to ER, [place], after fall down steps but did not stay for evaluation due to long wait. med refills Functional Status Date Functional Assessmen t Pain Score 8/10 Instructions Date Instruction Additional Infor hemalatha discussed with pt shante gunter's process regarding continuing chronic narcotic pain medication refills including controlled substance agreement, urine drug screen, consultation with behavioral health and review of previous PCP records prior to writing prescriptions. labs ordered. controlled substance agreement printed. instructions given for requesting records.referral to [facility] neuro pain management clinic. pt to also call regarding appointment. Related to Chronic pain need to reveiw previ ous records regarding gallbladder and chronic nausea. request records. Related to Nausea pt selft tapering of f alprazolam. advised continue taper. cont citalopram. advised establishing with psychiatrist. offered counseling services availablel at clinic. Related to Anxiety discussed stress man agement education and counseling available at clinic and how this could improve migraine frequency. Related to Migraine continue current med ications. refills sent to pharmacy. Related to Hypertension cont current medicat ions. refills sent to pharmacy Related to Asthma Discussed nutrition and increased physical activity Related to Obesity Assessments Type Assessment Date assessment Chronic pain assessment Hypertension assessment Asthma assessment Migraine assessment Anxiety assessment Nausea assessment Obesity assessment Body Mass Index 40.0-44.9, adult impression Controlled impression stable. impression chronic. complicated by multiple co-morbid conditions and psychosocial stressors. impression chronic. on SSRI and benzodiazep ine. impression chronic. impression chronic. multiple et iologies. complicated by polypharmacy and co-morbid psychiatric diagnoses. Mental Status Date Cognitive Assessment Orientation - [place] ed to time, place, person, situation. Patient Care Teams Name Effective Dates (start - stop) Status Members No Information
--- OUTSIDE RECORDS SUMMARY | 2024-05-02 14:10 | XMS_ITS | Data Portability ---
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 At her request under sterile conditions I injected both knee joints in the office today with 4 cc 0.5% bupivacaine and 20 mg of Kenalog each. The patient tolerated the procedure well. We talked about weight loss she was given the bariatric surgeons phone number and address on a card she is going to call and talk about her options. She also is aware that she needs to stop smoking to qualify for total knee arthroplasty. She really needs total knee arthroplasties to get her any sort of significant long-term relief and she is aware this she is ready to proceed. She is tired of living with her knee pain which is quite significant and interferes with her daily activities. She voiced understanding agrees above plan I will see her back in a couple of months for recheck. We did talk about the possibility of doing gel shots to buy her some time as well. If we get these approved we will try this in addition to the cortisone and other measures although we are somewhat limited as she can not take anti-inflammatory medication. She voiced understanding she will call for any further problems difficulties or questions. Not available 09/03/2023 11:26:09 11/12/2023 11/12/2023 The patient has severe primary osteoarthritis both knee joints. Under sterile conditions I injected both knee joints in the office today with Euflexxa injection number 1. I will see her back next week for the 2nd injection both knees she voiced understanding agrees above plan she will call for any further problems difficulties or qu Not available 11/12/2023 10:29:43 11/19/2023 11/19/2023 The patient has severe primary osteoarthritis both knee joints. Under sterile conditions I injected both knee joints in the office today with Euflexxa injection number 2 both knees. The patient tolerated procedure well. I will see her back next week for the 3rd injection both knees she voiced understanding and agrees above plan she will call for any further problems difficulties or questions. Not available 11/19/2023 10:57:59 11/26/2023 11/26/2023 the patient has severe primary osteoarthritis both knees left worse than right. We talked about treatment options previously she is going through a course of Euflexxa under sterile conditions I injected the patient's left knee and right knee joint in the office today with Euflexxa injection number 3. The patient tolerated the procedures well. I will see her back in a couple of months to see what impact treatment has had hopefully the right knee relief for the last, what she really needs is a left total knee arthroplasty I think as she is starting to get deformity and has chronic pain despite conservative measures. We will see how she does she will call for any further problems difficulties or questions. Not available 11/26/2023 11:01:21 01/28/2024 01/28/2024 The patient has severe primary osteoarthritis both knees left worse than right. We talked about treatment options today in detail, what she really needs his total knee arthroplasty particularly with her left knee but she needs to lose probably 30-40 lb before she could qualify. We talked about how to do this in detail today we talked about diet and calorie reduction, we also talked about her seeing her primary care physician to discuss weight loss medications. She states she will make an appointment to see him. In the meantime she wanted both knees injected therefore under sterile conditions I injected the patient's bilateral knee joints in the office with 4 cc of 0.5% bupivacaine and 20 mg of Kenalog each. The patient tolerated the procedures well. I will see her back in 3 months if necessary she voiced understanding agrees above plan she will call for any further problems difficulties or questions. When she has lost enough weight we will talk about setting her up for total knee arthroplasty. We talked about this in detail today. Not available 01/28/2024 10:49:55 Plan of Treatment Reminders Order Date Submit Date Provider Last Modified By Organization Details Last Modified Time Details Appointments None recorded. Lab None recorded. Referral None recorded. Procedures injection/a spiration joint/bursa (PROC) 2023 024 [email or web address] In-Office Order, Internal Use Only DO Not Attach Compendium DO Not Attach Compendium, Do Not Delete/merge, [id number] 11:16:14 knee aspiration/ injection (PROC) 2023 024 [email or web address] In-Office Order, Internal Use Only DO Not Attach Compendium DO Not Attach Compendium, Do Not Delete/merge, [id number] 09:55:34 knee aspiration/ injection (PROC) 2023 024 [email or web address] In-Office Order, Internal Use Only DO Not Attach Compendium DO Not Attach Compendium, Do Not Delete/merge, [id number] 10:25:51 knee aspiration/ injection (PROC) 2023 024 [email or web address] In-Office Order, Internal Use Only DO Not Attach Compendium DO Not Attach Compendium, Do Not Delete/merge, [id number] 10:26:15 injection/a spiration joint/bursa (PROC) 2023 024 [email or web address] In-Office Order, Internal Use Only DO Not Attach Compendium DO Not Attach Compendium, Do Not Delete/merge, [id number] 10:22:29 Surgeries None recorded. Imaging XR, knee 2023 024 [facility] [place], [address] [facility] [address], [place], [address], 11:13:51 Medication Orders bupivacaine HCl 0.5 % (5 mg/mL) injection solution 2023 024 [facility][id number], [address], [place], [place], [id number], 4 11:28:19 Kenalog 10 mg/mL suspension for injection 2023 [facility] #33263, [address], [place], [place], [id number], 4 11:28:19 Euflexxa 10 mg/mL (mw 2.4-3.6 million) intra-artic ular syringe 2023 024 [facility] #56776, [address], [place], [place], [id number], 11:13:51 Euflexxa 10 mg/mL (mw 2.4-3.6 million) intra-artic ular syringe 2023 024 [facility] #23175, [address], [place], [place], [id number], 11:47:48 Euflexxa 10 mg/mL (mw 2.4-3.6 million) intra-artic ular syringe 2023 024 [facility] #13563, [address], [place], [place], [id number], 4 12:14:10 bupivacaine HCl 0.5 % (5 mg/mL) injection solution 2023 024 [facility] #23119, [address], [place], [place], [id number], 4 12:24:05 Kenalog 10 mg/mL suspension for injection 2023 024 [facility] #78399, [address], [place], [place], [id number], 12:24:05 Patient TargetsNo targets recorded. Patient Instructions Encounter Date Encounter Id Patient Instructions Last Modified By Organization Details Last Modified Time 09/03/2023 [id number] viscosupplementa tion treatment* [email or web address] Not available 10/24/2023 14:23:44 Reason for Referral None Reported. Results Created Date Observation Date Name Description Value Unit Range Abnormal Flag Note LastModifiedBy Organization Detail LastModifiedTime 11/12/19 24 XR, knee No observ ation record ed. [facility] [address], [place], [address], 11/12/2023 10:30:56 Result Notes None recorded. Problems Name Problem SNOMED Code Status Onset Date Resolution Date Notes Provider Name and Address Organization Details Recorded Time Bilateral osteoarthr itis of knees 6163604800687 07 Active 2022 Not Available [facility] 3 08:19:05 Obstructiv e sleep apnea syndrome 79698993 Active 2023 Bk De Luna MD [address] [facility], [place] [address], [place], [address] , [facility] 4 10:00:48 Smoker 44059849 Active 2023 Bk De Luna MD [address], [place] [address], [place], [address] , [facility] 4 10:00:53 Pain of bilateral knee joints 8328697509552 04 Active 2023 [facility], [facility] 4 09:53:54 Notes:Medical History: Nicot ine use Anxiety Right tinnitus Rhinitis Bruxism Obesity with mild OSHS, HI = 3, 06/13/23 Paroxysmal SVT Hypertension Hyperlipidemia Fatty liver Bilateral knee OA Procedure History: Appendectromy 1983 Cholecystectomy 2018 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 Procedures Surgical History Date Name Laterality Status Provider Name and Address Organization Details Recorded Time Appendectomy completed Rochelle Hyman MA [facility] 06/21/2023 09:26:57 cholecystectomy completed APURVA Michelle [facility] 06/21/2023 09:27:06 loop electrosurgical excision procedure completed Rochelle Hyman MA [facility] 06/21/2023 09:27:48 operative procedure on knee completed Rochelle Hyman MA [facility] 06/21/2023 09:28:06 colonoscopic polypectomy completed Rochelle Hyman MA [facility] 06/21/2023 09:28:36 Imaging Results Imaging Date Name Status LastModified by Organiz ation Details LastModified Time 11/12/2023 XR, knee completed [facility] [address], [place], [address], 11/12/2023 10:30:56 Procedure Notes None recorded. Medical Equipment None Reported. Allergies No known drug allergies Medications Name Sig Start Date Stop Date Status Note LastModified by Organization Details LastModified Time losartan 50 mg tablet 06/13 completed Not Available Not Available Not Available cyclobenzap rine 10 mg tablet active Not Available Not Available Not Available atorvastati n 40 mg tablet active Not Available Not Available Not Available methocarbam ol 500 mg tablet Take 2 tablets every 6 hours by oral route. 10/05 completed Not Available Not Available Not Available neomycin-po lymyxin-hyd rocort 3.5 mg/mL-10,00 0 unit/mL-1 % ear solution 02/20 completed Not Available Not Available Not Available albuterol sulfate 2.5 mg/3 mL (0.083 %) solution for nebulizatio n Inhale 3 mL 3 times a day by nebulizat ion route. active Not Available Not Available No t Available azithromyci n 250 mg tablet 02/26 completed Not Available Not Available Not Available Claritin 10 mg tablet Take 1 tablet every day by oral route as needed for 30 days. 06/30 completed Not Available Not Available Not Available ondansetron HCl 4 mg tablet active Not Available Not Available Not Available bupivacaine HCl 0.5 % (5 mg/mL) injection solution Take 40 mg by injection route. 2023 active Not Available Not Available Not Avai lable prednisone 20 mg tablet 12/26 completed Not Available Not Available Not Available penicillin V potassium 500 mg tablet 02/20 completed Not Available Not Available Not Available ciprofloxac in 500 mg tablet 02/20 completed Not Available Not Available Not Available ketorolac 30 mg/mL (1 mL) injection solution Inject 1 mL by intramusc ular route. 10/05 completed Not Available Not Available Not Available meloxicam 7.5 mg tablet active Not Available Not Available Not Available oxycodone-a cetaminophe n 5 mg-325 mg tablet 09/27 completed Not Available Not Available Not Available Tessalon Perles 100 mg capsule Take 1 capsule twice a day by oral route as needed for 15 days. 05/10 completed Not Available Not Available Not Available famotidine 20 mg tablet 09/27 completed Not Available Not Available Not Available Kenalog 10 mg/mL suspension for injection Take 40 mg by injection route. 2023 active [facility]: 0003- 0494- 20 Not Available Not Available Not Available lorazepam 2 mg tablet 06/20 completed Not Available Not Available Not Available paroxetine 20 mg tablet TAKE 1 TABLET BY MOUTH EVERY DAY 09/27 completed Not Available Not Available Not Available naproxen sodium 550 mg tablet 02/20 completed Not Available Not Available Not Available misoprostol 200 mcg tablet Take 2 tablets by oral route at bedtime for 1 day. 09/05 completed Not Available Not Available Not Available metoprolol tartrate 50 mg tablet active Not Available Not Available No t Available hydrochloro thiazide 12.5 mg capsule active Not Available Not Available Not Available diclofenac sodium 75 mg tablet,carlene yed release TAKE 1 TABLET BY MOUTH TWICE DAILY 06/13 completed Not Available Not Available Not Available diltiazem CD 120 mg capsule,ext ended release 24 hr active Not Available Not Available Not Available hydrochloro thiazide 25 mg tablet Take 1 tablet every day by oral route for 90 days. 06/20 completed Not Available Not Available Not Available ergocalcife rol (vitamin D2) 1,250 mcg (50,000 unit) capsule Take 1 capsule every week by oral route. 05/10 completed Not Available Not Available Not Available ibuprofen 600 mg tablet 12/26 completed Not Available Not Available Not Available celecoxib 100 mg capsule 06/13 completed Not Available Not Available Not Available losartan 100 mg tablet active Not Available Not Available Not Available fluticasone propionate 50 mcg/actuati on nasal spray,suspe nsion 2 SPRAYS EACH NOSTRIL ONCE DAILY 06/30 completed Not Available Not Available Not Available clotrimazol e 1 % topical cream 02/20 completed Not Available Not Available Not Available doxycycline hyclate 100 mg tablet 07/05 completed Not Available Not Available Not Available naproxen 500 mg tablet as needed active Not Available Not Available No t Available amoxicillin 875 mg-potassiu m clavulanate 125 mg tablet Take 1 tablet twice a day by oral route for 7 days. 06/13 completed Not Available Not Available Not Available Ventolin HFA 90 mcg/actuati on aerosol inhaler Inhale 2 puffs every 4 hours by inhalatio n route as needed. active Not Available Not Available No t Available oxycodone 5 mg tablet 06/20 completed Not Available Not Available Not Available valsartan 160 mg tablet active Not Available Not Available Not Available neomycin-po lymyxin-hyd rocort 3.5 mg-10,000 unit/mL-1 % ear drops,susp 06/13 completed Not Available Not Available Not Available escitalopra m 10 mg tablet 12/18 completed Not Available Not Available Not Available Asprin Ec Low Dose 81 mg tablet,carlene yed release Take 1 tablet every day by oral route. 06/30 completed Not Available Not Available Not Available cyclobenzap rine 5 mg tablet 04/05 completed Not Available Not Available Not Available rosuvastati n 20 mg tablet Take 1 tablet every day by oral route for 90 days. active Not Available Not Available No t Available rosuvastati n 40 mg tablet Take 1 tablet every day by oral route. active Not Available Not Available No t Available escitalopra m 5 mg tablet 10/30 completed Not Available Not Available Not Available Euflexxa 10 mg/mL (mw 2.4-3.6 million) intra-artic ular syringe Inject 2.5 mL by intra-art icular route for 35 days. 2023 active Not Available Not Available Not Avai lable lidocaine (PF) 10 mg/mL (1 %) injection solution In office injection administe red by the provider 07/13 completed [facility]: 0409- 4276- 17 Not Available Not Available Not Available lidocaine (PF) 20 mg/mL (2 %) injection solution Take 80 mg by injection route. 06/13 completed Not Available Not Available Not Available lidocaine (PF) 5 mg/mL (0.5 %) injection solution In office injection administe red by the provider 06/13 completed Not Available Not Available Not Available Symbicort 160 mcg-4.5 mcg/actuati on HFA aerosol inhaler Inhale 2 puffs twice a day by inhalatio n route. 12/18 completed Not Available Not Available Not Available Symbicort 80 mcg-4.5 mcg/actuati on HFA aerosol inhaler Inhale 2 puffs twice a day by inhalatio n route. active Not Available Not Available No t Available ketorolac 30 mg/mL injection solution Inject 1 mL by intraveno us route. 10/05 completed Not Available Not Available Not Available Zipsor 25 mg capsule Take 1 capsule twice a day by oral route as needed for 30 days. 03/19 completed Not Available Not Available Not Available ropivacaine (PF) 5 mg/mL (0.5 %) injection solution in office 06/13 completed [facility] [phone] -[phone]- 01 Not Available Not Available Not Available Chantix Starting Month Box 0.5 mg (11)-1 mg (42) tablets in dose pack TAKE DIRECTED. NO ALCOHOL DRIVING OR WITH SEDATING MEDICATIO NS 06/30 completed Not Available Not Available Not Available Visco-3 10 mg/mL intra-artic ular syringe Inject 2 mL by intra-art icular route as directed for 21 days, for bilateral knee osteoarth ritis. 2023 active Not Available Not Available Not Avai lable albuterol 90 mcg-budeson lima 80 mcg/actuati on HFA aerosol inhaler Inhale by inhalatio n route. active Not Available Not Available No t Available Vitals Date Recorded Body height Provider Name an d Address Organization Details Last Updated DateTime 09/03/2023 160.02 cm Teresa Sheth [facility] 09/03/2023 10:45:19 Date Recorded Body mass index (BMI) Body weight Provider Name and Address Organization Details Last Updated DateTime 09/03/2023 40.7 kg/m2 822223.25 g Teresa MILLER [facility] 09/03/2023 10:45:39 Date Recorded Body height Provider Name an d Address Organization Details Last Updated DateTime 11/12/2023 160.02 cm Loretta Plasencia [facility] 11/12/2023 09:53:14 Date Recorded Body mass index (BMI) Body weight Provider Name and Address Organization Details Last Updated DateTime 11/12/2023 44.3 kg/m2 867537.09 g Loretta Plasencia [facility]NA [facility] 11/12/2023 09:53:20 Date Recorded Body height Provider Name an d Address Organization Details Last Updated DateTime 11/19/2023 160.02 cm Lorettaemelia Plasencia [facility] 11/19/2023 10:24:14 Date Recorded Body mass index (BMI) Body weight Provider Name and Address Organization Details Last Updated DateTime 11/19/2023 43.4 kg/m2 190745.13 g [facility]taemelia [facility] 11/19/2023 10:24:19 Date Recorded Body height Provider Name an d Address Organization Details Last Updated DateTime 11/26/2023 160.02 cm Loretta Luis Angel, [facility] 11/26/2023 10:22:19 Date Recorded Body mass index (BMI) Body weight Provider Name and Address Organization Details Last Updated DateTime 11/26/2023 43.4 kg/m2 905321.13 g Loretta Luis Angel, [employer] MACHINE OPERATOR [facility] 11/26/2023 10:22:26 Date Recorded Body height Provider Name an d Address Organization Details Last Updated DateTime 01/28/2024 160.02 cm Loretta Luis [facility] 01/28/2024 10:01:47 Date Recorded Body mass index (BMI) Body weight Provider Name and Address Organization Details Last Updated DateTime 01/28/2024 43.4 kg/m2 666245.13 g [facility] 01/28/2024 10:01:53 Social History Question Answer Notes LastModified by Organizat ion Details LastModified Time Tobacco Smoking Status Current Every Day Smoker Not Available [facility] 05/31/2022 02:31:37 What Is Your Level Of Alcohol Consumption? None Information not available 06/21/2023 What Is Your Level Of Caffeine Consumption? Heavy Information not available 06/21/2023 In The 14 Days Before Symptom Onset, Have You Had Close Contact With A Laboratory-confi rmed COVID-19 While That Case Was Ill? No Information not available 06/21/2023 In The 14 Days Before Symptom Onset, Have You Had Close Contact With A Person Who Is Under Investigation For COVID-19 While That Person Was Ill? No Information not available 06/21/2023 What Type Of Diet Are You Following? CARBOHYDRATE Information not available 06/21/2023 Do You Have An Electrostatic Air Filter? No Information not available 06/21/2023 Do You Have A Humidifier? No Information not available 06/21/2023 Where Do You Live? SingleLevelHouse Information not available 06/21/2023 Are You Following A Low Salt Diet? No Information not available 06/21/2023 Do You Have Moisture Problems In Your Home? No Information not available 06/21/2023 What Was The Date Of Your Most Recent Tobacco Screening? 06/21/2023 Information not available 06/21/2023 Do You Have Any Pets? Yes Information not available 06/21/2023 What Is Your Relationship Status? Information not available 06/21/2023 Do You Use Your Seat Belt Or Car Seat Routinely? Yes Information not available 06/21/2023 Do You Have Smoke And Carbon Monoxide Detectors In Your Home? Yes Information not available 06/21/2023 At What Age Did You Start Smoking Tobacco? 9 Information not available 06/21/2023 Are You Passively Exposed To Smoke? Yes Information not available 06/21/2023 How Much Tobacco Do You Smoke? 0.5 PPD [id number] Information not available 05/31/2022 Do You Feel Stressed (tense, Restless, Nervous, Or Anxious, Or Unable To Sleep At Night)? [id number] Information not available 06/21/2023 Do You Use Any Illicit Or Recreational Drugs? No Information not available 06/21/2023 Do You Use Sunscreen Routinely? No Information not available 06/21/2023 Have You Recently Traveled Abroad? No Information not available 06/21/2023 Do You Have Any Dietary Restrictions? Yes Information not available 06/21/2023 Do You Or Have You Ever Used Any Other Forms Of Tobacco Or Nicotine? No Information not available 06/21/2023 Sex: Unknown Functional Status Question Answer Note LastModified by [employer] ion Details LastModified Time What is your exercise level? Occasional Information not available 06/21/2023 Mental Status None recorded. Family History Relationship Description Onset Age of this Age Resolved Age Notes LastModified by Organization Details LastModified Time Father Heart disease [id number] Not available 05/31/2022 02:34:25 Father Diabetes mellitus [id number] Not available 05/31/2022 02:34:25 Mother Hypertensive disorder [id number] Not available 05/31/2022 02:34:25 Mother Diabetes mellitus [id number] Not available 05/31/2022 02:34:25 Paternal Grandmother Heart disease [email or web address] Not available 2023 10:05:54 Maternal Grandmother Heart disease [email or web address] Not available 2023 10:05:57 Paternal Aunt Heart disease [email or web address] Not available 2023 10:06:27 Paternal Uncle Heart disease [email or web address] Not available 2023 10:06:30 Paternal Uncle Malignant neoplasm of bone [email or web address] Not available 2023 10:06:42 Sister Osteoarthrit is [email or web address] Not available 2023 10:07:14 Sister Chronic kidney disease [email or web address] Not available 2023 10:07:35 Medical History Condition Response ARTHRITIS Y HEART ARRHYTHMIA Y HYPERTENSION Y Gynecological HistoryNo gynecological history recorded. Obstetrics History GPAL:G 0 P 0 0 0 0 Immunizations Vaccine Type Date Status Note Provider Nam e and Address Organization Details Recorded Time Influenza, split virus, trivalent, preservative 7 completed Not Available [facility] 04/03/2023 07:17:43 Influenza, split virus, quadrivalent, PF 7 completed Not Available [facility] 04/03/2023 07:17:43 Influenza, split virus, quadrivalent, PF 8 completed Not Available [facility] 04/03/2023 07:17:43 Past Encounters Encounter ID Performer Location Encounter Start Date Encounter Closed Date Diagnosis/Indication Diagnosis SNOMED-CT Code Diagnosis ICD10 Code Diagnosis Note [id number] [facility] [address] [facility] [address] [place] [address] 06/30/2020 00:00:00 06/30/2020 15:00:05 [id number] [facility] [address] [facility] [address] [place] [address] 09/29/2020 00:00:00 09/29/2020 15:22:09 [id number] [facility] [address] [facility] [address] [place] [address] 01/05/2021 00:00:00 01/05/2021 11:33:18 [id number] [facility] [address] [place] [address] 04/13/2021 00:00:00 04/13/2021 15:19:54 [id number] [facility] [address] [place] [address] 07/13/2021 00:00:00 07/13/2021 16:19:45 [id number] [facility] [address] [place] [address] 10/14/2021 00:00:00 10/14/2021 14:25:32 [id number] [facility] [address] [place] [address] 01/18/2022 00:00:00 01/18/2022 13:47:08 [id number] [facility] [address] [place] [address] 04/12/2022 00:00:00 04/12/2022 14:11:54 [id number] KOLBY Vann [facility] [address] [place] [address] 07/19/2022 15:11:31 07/19/2022 15:54:40 Bilateral osteoarthritis of knees [id number] 30158 M17.0 [id number] KOLBY Vann [facility] [address] [place] [address] 10/27/2022 14:02:48 10/30/2022 09:51:48 Bilateral osteoarthritis of knees [id number] 74771 M17.0 [id number] KOLBY Vann [facility] [address] [place] [address] 01/31/2023 13:37:38 01/31/2023 16:45:29 Bilateral osteoarthritis of knees [id number] 95462 M17.0 [id number] KOLBY Vann [facility] [address] [place] [address] 05/25/2023 13:58:26 05/25/2023 14:44:18 Bilateral osteoarthritis of knees [id number] 91817 M17.0 [id number] Bk De Luna MD [facility] [address] [place] [address] 06/21/2023 09:11:15 06/22/2023 08:55:08 Obstructive sleep apnea syndrome [id number] G47.33 Smoker [id number] F17.218 F17.219 Z87.917 [id number] KOLBY Martinez [facility] [address] [place] [address] 09/03/2023 10:31:03 09/03/2023 11:28:43 Bilateral osteoarthritis of knees [id number] 32756 M17.0 [id number] KOLBY Martinez [facility] [address] [place] [address] 11/12/2023 09:51:46 11/12/2023 10:50:13 Bilateral osteoarthritis of knees [id number] 23272 M17.0 Pain of bi lateral knee joints [id number] 74346 M25.561 M25.381 [id number] KOLBY Martinez [facility] [address] [place] [address] 11/19/2023 10:20:12 11/19/2023 11:00:00 Bilateral osteoarthritis of knees [id number] 56398 M17.0 Pain of bi lateral knee joints [id number] 63608 M25.561 M25.515 [id number] KOLBY Martinez [facility] [address] [place] [address] 11/26/2023 10:21:05 11/26/2023 10:37:41 Bilateral osteoarthritis of knees [id number] 08989 M17.0 Pain of bi lateral knee joints [id number] 91309 M25.561 M25.813 [id number] KOLBY Martinez [facility] [address] [place] [address] 01/28/2024 09:52:52 01/28/2024 10:24:44 Bilateral osteoarthritis of knees [id number] 87637 M17.0 Pain of bi lateral knee joints [id number] 36863 M25.561 M25.562 Health Concerns Section Related Observation LastModified by Organization Detai ls LastModified Time None Recorded Concern Status LastModified by Organization Details LastModified Time None Recorded Advance Directives Directive None Recorded Payers Encounter Date Sequence Insurance Name Policy Number Policy Pearl Covered Member ID Pearl Member ID Guarantor Name 09/03/2023 1 [employer]MI[employer]AN - DUAL (MEDICARE - MEDICAID REPLACEMENT HMO) Sunita Pollard [id number] Sunita Pollard 11/12/2023 1 [employer] - [employer]ER [employer]AN - DUAL (MEDICARE - MEDICAID REPLACEMENT HMO) Sunita Pollard [id number] Sunita Pollard 11/19/2023 1 [employer] - PREMIER PLAN - DUAL (MEDICARE - MEDICAID REPLACEMENT HMO) Sunita Atul [id number] Sunita Pollard 11/26/2023 1 [employer] - PREMIER PLAN - DUAL (MEDICARE - MEDICAID REPLACEMENT HMO) Sunita Pollard [id number] Sunita Pollard 01/28/2024 1 [employer] - PREMIER PLAN - DUAL (MEDICARE - MEDICAID REPLACEMENT HMO) Sunita Atul [id number] Sunita Pollard Notes Date Note Type Note Provider Name and Address Organization Details Recorded Time 09/03/2023 text/html Patient returns with bilateral knee pain she would like cortisone injections both knees. She is 43 years of age and has severe primary osteoarthritis both knees left slightly worse than right. She has lteg-eb-qdbk changes in medial compartments a little bit of erosion of the tibial plateau on the left as well as varus deformity left worse than right. Today I reviewed the x-rays from her previous visit in detail with the patient. 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 The patient also smokes her BMI is too high for total knee arthroplasty she has been working on weight loss however she can not maintain an ideal body weight currently her BMI is about 44 height is 5 ft 3 in 230 lb. We did talk about Ozempic versus seeing a bariatric surgeon she states she would rather avoid Ozempic but she did states she would like to see the bariatric surgeon to talk about her options. Today she was given a card to see about calling for an appointment. In the meantime she is aching pain in both knees with tenderness and pain along the medial joint line she would like both knees injected again today. She is trying to buy herself time until she can lose enough weight to qualify for total knee arthroplasty.A new past medical history sheet was reviewed and signed on the intake sheet of today's date drug allergies current medications family social history previous surgical history 10 point review of systems was reviewed and discussed in detail today with the patient. KOLBY Martinez [address], [place], [address], [employer] 09/03/2023 11:27:38 11/12/2023 text/html Patient returns for Euflexxa injection number 1 both knees. She has severe primary osteoarthritis both knees left worse than right it has been more than a year since her last x-rays were getting new x-rays today. Her last cortisone injections did not give her much relief these were done a little over 2 months ago. Unfortunately her BMI is too high for total knee arthroplasty that is what she really needs she has severe wunm-tm-xtnb osteoarthritis in both knees in the medial compartments left worse than right. To buy her some time while she is trying to lose weight we will begin a series of gel shots. Currently her BMI is 40.7 she is 5 ft 3 in tall 230 lb. KOLBY Martinez [address], [place], [address], [employer] 11/12/2023 10:31:22 11/19/2023 text/html Patient returns for Euflexxa injection number 2 both knees. The patient has severe primary osteoarthritis both knees left worse than right with jypy-bb-tlxn changes in the medial compartments and varus deformities. She is getting a little bit of relief from the 1st round of injections not much she has failed other conservative measures cortisone really did not work well for her so we are trying a round of gel shots. Unfortunately she has a high BMI not a candidate for total knee arthroplasty. KOLBY Martinez [address], [place], [address], [employer] 11/19/2023 10:58:13 11/26/2023 text/html patient returns for Euflexxa injection number 3 both knees. She is getting some good relief with the right knee the left knee continues to bother her. She is much worse osteoarthritis in the left knee than the right with severe jyqs-ln-isrt changes in medial compartment and varus deformity left knee moderately severe in the right knee. Really no significant deformity of the right knee. She comes in today for last injection to see if she can get more relief with the left knee. KOLBY Martinez [address], [place], [address], [employer] 11/26/2023 11:01:32 01/28/2024 text/html Patient returns for recheck of both knees. She had gel shots done 2 months ago states she got some relief for about a month but really not great. She has severe primary osteoarthritis both knees left worse than right. She has varus deformity of the left knee and nczq-ag-fgri changes in the medial compartments bilaterally. The left knee hurts worse than the right she can not take oral anti-inflammatory medications due to the fact that it causes fluid retention she has some heart issues as well. She is trying to lose some weight to qualify for total knee arthroplasty currently her BMI is 43.4 at 5 ft 3 in tall 245 lb. We did talk about weight loss previously and again today in detail she is going to see her primary care physician about possibly getting on weight loss medication she states she has made some lifestyle changes it is working on diet to see if she can accomplish some weight loss this way as well. She comes in today for bilateral knee rechecks and asking for cortisone injections both knees. KOLBY Martinez [address], [place], [address], [employer] 01/28/2024 10:50:07 OBGyn Episode No OBEpisode recorded.
--- NOTE | 2024-05-02 15:03 | ECG_ITS ---
Test Date: 2024-05-02 15:07:39 Measurements Intervals [place] Rate: 98 P: 66 WA: 156 QRS: -50 QRSD: 83 T: 78 QT: 340 QTc: 435 Interpretive Statements SINUS RHYTHM POSSIBLE LEFT ATRIAL ENLARGEMENT LEFT ANTERIOR FASCICULAR BLOCK LEFT VENTRICULAR HYPERTROPHY AND ST-T CHANGE ABNORMAL ECG No previous ECG available for comparison Electronically Signed On 05-03-2024 10:13:16 SPRAY I PAINTER by Antonio Wolfe D.O.
--- NOTE | 2024-05-02 16:08 | ED_ITS ---
HPI - Nausea/Vomiting/Diarrhea General Chief complaint: Nausea/Vomiting/Diarrhea <Sravanthi Lennon PA-C - Last Filed: 05/03/24 18:06> Stated complaint: N/V/D x1 month <Sravanthi Lennon PA-C - Last Filed: 05/03/24 18:06> Time Seen by Provider: 05/02/24 16:08 <Sravanthi Lennon PA-C - Last Filed: 05/03/24 18:06> Focused HPI: This is a 44 year old female that presents to the ER for abdominal pain. Ongoing over the last couple of weeks. Reports associated vomiting, back pain, and diarrhea. Denies fevers, dysuria or hematuria. GENERAL: Well-appearing, well-nourished, and in no acute distress. HEAD: Normocephalic, atraumatic. CHEST: Clear to auscultation. ?No respiratory distress. HEART: Regular rate and rhythm.? NEURO: ?Alert and oriented x3. Patient screened in triage and initial orders placed.? ?Additional care and disposition to be based upon?diagnostic testing and treatment. <Sravanthi Lennon PA-C - Last Filed: 05/03/24 18:06> History of Present Illness HPI Narrative: 44-year-old female with history of hypertension presents to the emergency department for multiple medical complaints. Patient is reporting N/V/D for several weeks. States she began having nausea and vomiting the week before [place] in a couple weeks later began having diarrhea. Symptoms have been persistent. She is reporting epigastric abdominal pain, dizziness, fatigue, shortness of breath and intermittent left-sided chest pain. States she last had chest pain a few hours ago while sitting in the waiting room. States it radiated to the left side of her neck. Denies exertional symptoms. Also reporting lower extremity edema which is unchanged from baseline. No history of CHF. Endorses a history of asthma. States she smokes almost a pack a day for 20+ years. She has not followed up with her PCP regarding any of her issues due to insurance issues. Denies known fever, dysuria or hematuria. <Umu Ziegler PA-C - Last Filed: 05/03/24 00:23> Related Data Home medications: Home Medications ?Medication ?Instructions ?Recorded ?Confirmed ?Last Taken ?Type aspirin 81 mg capsule 81 mg PO DAILY 05/03/24 05/03/24 Unknown History atorvastatin 40 mg tablet 40 mg PO QPM 05/03/24 05/03/24 Unknown History diltiazem HCl 120 mg 120 mg PO Q12H 05/03/24 05/03/24 Unknown History capsule,extended release 24 hr losartan 100 mg tablet 100 mg PO DAILY 05/03/24 05/03/24 Unknown History metoprolol tartrate 50 mg tablet 50 mg PO Q12H 05/03/24 05/03/24 Unknown History <Sravanthi Lennon PA-C - Last Filed: 05/03/24 18:06> Allergies/Adverse reactions: Allergies Allergy/AdvReac Type Severity Reaction Status Date / Time morphine Allergy Unknown Nervousness Verified 05/02/24 23:44 <Sravanthi Lennon PA-C - Last Filed: 05/03/24 18:06> Review of Systems 2 Review of Systems: All systems reviewed & are unremarkable except as noted in HPI and below <Umu Ziegler PA-C - Last Filed: 05/03/24 00:23> FOR[facility]LY [facility] Past Medical History Medical History: Medical History Cervical cancer Treated with ablation(?) but no chemo/XRT CAD (coronary artery disease) with 'mild heart attack' Hyperlipidemia DJD (degenerative joint disease) Asthma Hypertension <Sravanthi Lennon PA-C - Last Filed: 05/03/24 18:06> Surgical History Surgical History: Surgical History H/O arthroscopic knee surgery Pneumothorax on right Developed PTX with 1st attempt at cholecystectomy so surgery aborted Hx of cholecystectomy <MATEO Patterson Last Filed: 05/03/24 18:06> Family History Family History: Family History Sibling Cervix cancer Stomach cancer Father Hypertension CAD (coronary artery disease) High blood cholesterol Mother Hypertension CAD (coronary artery disease) High blood cholesterol <MATEO Patterson Last Filed: 05/03/24 18:06> Social History Social History: Social History (Updated 05/03/24 @ 14:21 by Dinesh Funez MD) Social History: Smokes a pack a day for past 20 years. No alcohol use. History of prescription narcotic abuse but has been clean for about 10 years. Lives with her . She was using marijuana but has stopped this recently. Surrogate decision maker is her . Code status is DNR. is supportive of her decision Smoking packs per day: 1 Smoking cigarettes per day: 20.0 Years smoked: 20 Smoking pack-years: 20.00 Smoking status: Current every day smoker Alcohol intake: former Substance use type: marijuana Do You Feel Safe in your Home?: Yes Lack of Transportation: No Lack of Food: Never True Current Housing: I Have Housing Concerned About Future Housing: No Difficulty Paying Gas/Electric Bills: No Difficulty Paying for Meds: No Currently Unemployed: No Education: High School Diploma/GED Difficulty w/ Childcare or Family Care: No Spiritual care concerns: No <Sravanthi Lennon PA-C - Last Filed: 05/03/24 18:06> Exam 2 Narrative: GENERAL: Well-appearing, well-nourished, and in no acute distress. Obese HEAD: Normocephalic, atraumatic. EYES: PERRLA and EOMI. ENT: Nares clear, no rhinorrhea or epistaxis. Mucous membranes moist. NECK: Supple. CHEST: Minimal expiratory wheezing hines no rales or rhonchi, patient satting 97% room air in no distress HEART: Regular rate and rhythm. No murmur heard. Normal peripheral pulses. ABDOMEN: Normoactive bowel sounds. Abdomen soft with tenderness to the epigastrium. No rebound guarding or rigidity. No CVA tenderness EXTREMITIES: Normal range of motion. 2+ edema bilaterally SKIN: Warm, dry, no rash. NEURO: No focal deficits. Alert and oriented x3 <Umu Ziegler PA-C - Last Filed: 05/03/24 00:23> Course [employer]AL [employer]PLATE [employer]KER/PA Physician Supervision This visit was performed by both a physician and an APC. I performed all aspects of the MDM as documented. <Sylvain Lange MD - Last Filed: 05/03/24 06:47> Vital Signs Vital signs: Vital Signs Temperature 98.0 F 05/02/24 15:03 Pulse Rate 96 05/02/24 15:03 Respiratory Rate 18 05/02/24 15:03 Blood Pressure 230/127 H 05/02/24 15:03 Pulse Oximetry 99 05/02/24 15:03 Oxygen Delivery Room Air 05/02/24 15:03 Temperature 98.9 F 05/03/24 16:00 Pulse Rate 90 05/03/24 18:00 Respiratory Rate 20 05/03/24 16:00 Blood Pressure 155/95 H 05/03/24 16:00 Pulse Oximetry 97 05/03/24 16:00 Oxygen Delivery Room Air 05/03/24 16:00 <Sravanthi Lennon PA-C - Last Filed: 05/03/24 18:06> Vital Signs Temperature 98.0 F 05/02/24 15:03 Pulse Rate 96 05/02/24 15:03 Respiratory Rate 18 05/02/24 15:03 Blood Pressure 230/127 H 05/02/24 15:03 Pulse Oximetry 99 05/02/24 15:03 Oxygen Delivery Room Air 05/02/24 15:03 Temperature 98.9 F 05/03/24 16:00 Pulse Rate 90 05/03/24 18:00 Respiratory Rate 20 05/03/24 16:00 Blood Pressure 155/95 H 05/03/24 16:00 Pulse Oximetry 97 05/03/24 16:00 Oxygen Delivery Room Air 05/03/24 16:00 <Umu Zielger PA-C - Last Filed: 05/03/24 00:23> Vital Signs Temperature 98.0 F 05/02/24 15:03 Pulse Rate 96 05/02/24 15:03 Respiratory Rate 18 05/02/24 15:03 Blood Pressure 230/127 H 05/02/24 15:03 Pulse Oximetry 99 05/02/24 15:03 Oxygen Delivery Room Air 05/02/24 15:03 Temperature 98.9 F 05/03/24 16:00 Pulse Rate 90 05/03/24 18:00 Respiratory Rate 20 05/03/24 16:00 Blood Pressure 155/95 H 05/03/24 16:00 Pulse Oximetry 97 05/03/24 16:00 Oxygen Delivery Room Air 05/03/24 16:00 <Sylvain Lange MD - Last Filed: 05/03/24 06:47> MDM - Nausea/Vomiting/Diarrhea MDM Narrative Medical decision making narrative: 44-year-old female with history of hypertension presents to emergency department for multiple medical complaints including N/V/D, dizziness, abdominal pain, intermittent chest pain for several weeks. See HPI for further history. Triage vitals hypertension of 230/127. Patient states she is compliant with her medications. Given reported chest pain, abdominal pain and significant elevated blood pressures, CTA chest abdomen pelvis shows mild aortic atherosclerosis without aneurysm or dissection, there is a 3.4 cm cyst in the left ovary which is likely a follicular cyst. Patient has no tenderness to the left lower quadrant. Her her lab work shows leukocytosis of 15.1. Chemistries are unremarkable. BNP is elevated 1530. UA without infection. EKG shows sinus rhythm with a rate of 90 ppm, normal MA interval, normal QRS duration, normal QTC, findings consistent with LVH, no significant ST elevation or depression. Troponin is undetectable. Patient and updated on workup. Patient denies known history of CHF, however does states she follows with a labor conciliator and was on a diuretic but taken off of this approximately 1 year ago due to adverse reactions. She states she had an echo 1 year ago at [facility] but is uncertain of the results. Her labor conciliator is at [facility]. Shared decision making regarding disposition. Discussed I suspect her nausea and vomiting is secondary to cannabinoid hyperemesis syndrome as she admits to smoking marijuana several times a day. Discussed wheezing is likely secondary to some underlying COPD and her exertional dyspnea/ lower extremity edema likely secondary to underlying CHF (which may be secondary to uncontrolled hypertension). Discussed outpatient follow-up with her labor conciliator versus admission. Patient admits that she is unable follow-up with her labor conciliator due to insurance issues. Plan to admit for further management. Discussed with hospitalist, Dr. Huertas, who agrees to admission. Echo ordered for morning. < Umu Ziegler PA-C - Last Filed: 05/03/24 00:23> Lab Data Result diagrams: 05/02/24 18:49 05/02/24 18:49 <Sravanthi Lennon PA-C - Last Filed: 05/03/24 18:06> Labs: Lab Results 05/02/24 05/02/24 05/02/24 Range/Units 18:49 18:54 22:18 WBC 15.1 H (4.5-10.0) K/mm3 RBC 4.55 (4.2-5.4) M/mm3 Hgb 14.5 (12.0-15.0) g/dL Hct 42.9 (37.0-47.0) % MCV 94.3 (80-100) fl MCH 31.9 (26-34) pg MCHC 33.8 (32-36) g/dl RDW 12.8 (11.5-14.5) % Plt Count 266 (150-375) k/mm3 MPV 10.8 H (7.4-10.4) fl Immature Gran % (Auto) 0.4 (0-0.5) % Neut % (Auto) 75.6 H (45.5-73.1) % Lymph % (Auto) 15.1 L (18.3-44.2) % [place] % (Auto) 8.1 (2.6-8.5) % Eos % (Auto) 0.5 (0-4.4) % Baso % (Auto) 0.3 (0.2-1.2) % Lymph # (Auto) 2.29 (0.9-3.2) K/mm3 [place] # (Auto) 1.2 H (0.1-0.6) K/mm3 Eos # (Auto) 0.1 (0-0.3) K/mm3 Baso # (Auto) 0.1 (0.0-0.1) K/mm3 Abs Immat Gran (auto) 0.06 H (0.00-0.031) K/mm3 Absolute Neuts (auto) 11.4 H (1.3-6.7) K/mm3 Absolute Nucleated RBC 0.000 (0.0-0.012) K/mm3 Nucleated RBC % 0.0 (0.0-0.2) % PT 13.1 (11.1-14.7) Seconds INR 1.0 APTT 31.9 (22.3-36.8) Seconds Sodium 137 (137-145) mmol/L Potassium 4.6 (3.4-5.0) mmol/L Chloride 103 (98-107) mmol/L Carbon Dioxide 23 (22-30) mmol/L Anion Gap 11 (4-12) mmol/L BUN 11 (7-17) mg/dL Creatinine 0.76 (0.7-1.0) mg/dL Estim Creat Clear Calc 105 ml/min Estimated GFR > 60 (59 - ) Glucose 108 (65-110) mg/dL Calcium 10.0 (8.4-10.2) mg/dL Total Bilirubin 0.8 (0.2-1.3) mg/dL AST 28 (14-36) U/L ALT 26 (6-35) U/L Alkaline Phosphatase 96 (38-126) U/L Troponin I < 0.012 (0.000-0.034) ng/mL NT-Pro-B Natriuret Pep 1530 H (19.9-100) pg/mL Total Protein 8.0 (6.3-8.2) g/dL Albumin 4.1 (3.5-5.1) g/dL Lipase 119 103 (23-300) U/L Urine Color Dark yellow (Yellow) Urine Appearance Cloudy H (Clear) Urine pH 5.5 (5.0-9.0) Ur Specific [place] 1.025 (1.001-1.035) Urine Protein 1+ H (Negative) mg/dL Urine Glucose (UA) Negative (Negative) mg/dL Urine Ketones Trace H (Negative) mg/dL Ur Blood (Man) Negative (Negative) Urine Nitrate Negative (Negative) Urine Bilirubin 1+ H (Negative) Urine Urobilinogen 1.0 (<2.0) mg/dL Add Ur Microanalysis Reviewed Leukocyte Esterase Rfl Negative (Negative) FLASH/UL Urine RBC 3-5 H (0-2) /hpf Urine WBC 0-5 (0-3) /hpf Ur Squamous Epith Cells Few (Few) /hpf Urine Bacteria 1+ H /hpf Urine Casts 11-20 Hyaline Casts Present (None) /lpf Urine Mucus Present /lpf POC Urine HCG, Qual Negative (Negative) 05/03/24 05/03/24 Range/Units 04:01 06:57 WBC (4.5-10.0) K/mm3 RBC (4.2-5.4) M/mm3 Hgb (12.0-15.0) g/dL Hct (37.0-47.0) % MCV (80-100) fl MCH (26-34) pg MCHC (32-36) g/dl RDW (11.5-14.5) % Plt Count (150-375) k/mm3 MPV (7.4-10.4) fl Immature Gran % (Auto) (0-0.5) % Neut % (Auto) (45.5-73.1) % Lymph % (Auto) (18.3-44.2) % [place] % (Auto) (2.6-8.5) % Eos % (Auto) (0-4.4) % Baso % (Auto) (0.2-1.2) % Lymph # (Auto) (0.9-3.2) K/mm3 [place] # (Auto) (0.1-0.6) K/mm3 Eos # (Auto) (0-0.3) K/mm3 Baso # (Auto) (0.0-0.1) K/mm3 Abs Immat Gran (auto) (0.00-0.031) K/mm3 Absolute Neuts (auto) (1.3-6.7) K/mm3 Absolute Nucleated RBC (0.0-0.012) K/mm3 Nucleated RBC % (0.0-0.2) % PT (11.1-14.7) Seconds INR APTT (22.3-36.8) Seconds Sodium (137-145) mmol/L Potassium (3.4-5.0) mmol/L Chloride (98-107) mmol/L Carbon Dioxide (22-30) mmol/L Anion Gap (4-12) mmol/L BUN (7-17) mg/dL Creatinine (0.7-1.0) mg/dL Estim Creat Clear Calc ml/min Estimated GFR (59 - ) Glucose (65-110) mg/dL Calcium (8.4-10.2) mg/dL Total Bilirubin (0.2-1.3) mg/dL AST (14-36) U/L ALT (6-35) U/L Alkaline Phosphatase (38-126) U/L Troponin I < 0.012 < 0.012 (0.000-0.034) ng/mL NT-Pro-B Natriuret Pep (19.9-100) pg/mL Total Protein (6.3-8.2) g/dL Albumin (3.5-5.1) g/dL Lipase (23-300) U/L Urine Color (Yellow) Urine Appearance (Clear) Urine pH (5.0-9.0) Ur Specific [place] (1.001-1.035) Urine Protein (Negative) mg/dL Urine Glucose (UA) (Negative) mg/dL Urine Ketones (Negative) mg/dL Ur Blood (Man) (Negative) Urine Nitrate (Negative) Urine Bilirubin (Negative) Urine Urobilinogen (<2.0) mg/dL Add Ur Microanalysis Leukocyte Esterase Rfl (Negative) FLASH/UL Urine RBC (0-2) /hpf Urine WBC (0-3) /hpf Ur Squamous Epith Cells (Few) /hpf Urine Bacteria /hpf Urine Casts Hyaline Casts (None) /lpf Urine Mucus /lpf POC Urine HCG, Qual (Negative) <Sravanthi Lennon PA-C - Last Filed: 05/03/24 18:06> Lab Results 05/02/24 05/02/24 05/02/24 Range/Units 18:49 18:54 22:18 WBC 15.1 H (4.5-10.0) K/mm3 RBC 4.55 (4.2-5.4) M/mm3 Hgb 14.5 (12.0-15.0) g/dL Hct 42.9 (37.0-47.0) % MCV 94.3 (80-100) fl MCH 31.9 (26-34) pg MCHC 33.8 (32-36) g/dl RDW 12.8 (11.5-14.5) % Plt Count 266 (150-375) k/mm3 MPV 10.8 H (7.4-10.4) fl Immature Gran % (Auto) 0.4 (0-0.5) % Neut % (Auto) 75.6 H (45.5-73.1) % Lymph % (Auto) 15.1 L (18.3-44.2) % [place] % (Auto) 8.1 (2.6-8.5) % Eos % (Auto) 0.5 (0-4.4) % Baso % (Auto) 0.3 (0.2-1.2) % Lymph # (Auto) 2.29 (0.9-3.2) K/mm3 [place] # (Auto) 1.2 H (0.1-0.6) K/mm3 Eos # (Auto) 0.1 (0-0.3) K/mm3 Baso # (Auto) 0.1 (0.0-0.1) K/mm3 Abs Immat Gran (auto) 0.06 H (0.00-0.031) K/mm3 Absolute Neuts (auto) 11.4 H (1.3-6.7) K/mm3 Absolute Nucleated RBC 0.000 (0.0-0.012) K/mm3 Nucleated RBC % 0.0 (0.0-0.2) % PT 13.1 (11.1-14.7) Seconds INR 1.0 APTT 31.9 (22.3-36.8) Seconds Sodium 137 (137-145) mmol/L Potassium 4.6 (3.4-5.0) mmol/L Chloride 103 (98-107) mmol/L Carbon Dioxide 23 (22-30) mmol/L Anion Gap 11 (4-12) mmol/L BUN 11 (7-17) mg/dL Creatinine 0.76 (0.7-1.0) mg/dL Estim Creat Clear Calc 105 ml/min Estimated GFR > 60 (59 - ) Glucose 108 (65-110) mg/dL Calcium 10.0 (8.4-10.2) mg/dL Total Bilirubin 0.8 (0.2-1.3) mg/dL AST 28 (14-36) U/L ALT 26 (6-35) U/L Alkaline Phosphatase 96 (38-126) U/L Troponin I < 0.012 (0.000-0.034) ng/mL NT-Pro-B Natriuret Pep 1530 H (19.9-100) pg/mL Total Protein 8.0 (6.3-8.2) g/dL Albumin 4.1 (3.5-5.1) g/dL Lipase 119 103 (23-300) U/L Urine Color Dark yellow (Yellow) Urine Appearance Cloudy H (Clear) Urine pH 5.5 (5.0-9.0) Ur Specific [place] 1.025 (1.001-1.035) Urine Protein 1+ H (Negative) mg/dL Urine Glucose (UA) Negative (Negative) mg/dL Urine Ketones Trace H (Negative) mg/dL Ur Blood (Man) Negative (Negative) Urine Nitrate Negative (Negative) Urine Bilirubin 1+ H (Negative) Urine Urobilinogen 1.0 (<2.0) mg/dL Add Ur Microanalysis Reviewed Leukocyte Esterase Rfl Negative (Negative) FLASH/UL Urine RBC 3-5 H (0-2) /hpf Urine WBC 0-5 (0-3) /hpf Ur Squamous Epith Cells Few (Few) /hpf Urine Bacteria 1+ H /hpf Urine Casts 11-20 Hyaline Casts Present (None) /lpf Urine Mucus Present /lpf POC Urine HCG, Qual Negative (Negative) 05/03/24 05/03/24 Range/Units 04:01 06:57 WBC (4.5-10.0) K/mm3 RBC (4.2-5.4) M/mm3 Hgb (12.0-15.0) g/dL Hct (37.0-47.0) % MCV (80-100) fl MCH (26-34) pg MCHC (32-36) g/dl RDW (11.5-14.5) % Plt Count (150-375) k/mm3 MPV (7.4-10.4) fl Immature Gran % (Auto) (0-0.5) % Neut % (Auto) (45.5-73.1) % Lymph % (Auto) (18.3-44.2) % [place] % (Auto) (2.6-8.5) % Eos % (Auto) (0-4.4) % Baso % (Auto) (0.2-1.2) % Lymph # (Auto) (0.9-3.2) K/mm3 [place] # (Auto) (0.1-0.6) K/mm3 Eos # (Auto) (0-0.3) K/mm3 Baso # (Auto) (0.0-0.1) K/mm3 Abs Immat Gran (auto) (0.00-0.031) K/mm3 Absolute Neuts (auto) (1.3-6.7) K/mm3 Absolute Nucleated RBC (0.0-0.012) K/mm3 Nucleated RBC % (0.0-0.2) % PT (11.1-14.7) Seconds INR APTT (22.3-36.8) Seconds Sodium (137-145) mmol/L Potassium (3.4-5.0) mmol/L Chloride (98-107) mmol/L Carbon Dioxide (22-30) mmol/L Anion Gap (4-12) mmol/L BUN (7-17) mg/dL Creatinine (0.7-1.0) mg/dL Estim Creat Clear Calc ml/min Estimated GFR (59 - ) Glucose (65-110) mg/dL Calcium (8.4-10.2) mg/dL Total Bilirubin (0.2-1.3) mg/dL AST (14-36) U/L ALT (6-35) U/L Alkaline Phosphatase (38-126) U/L Troponin I < 0.012 < 0.012 (0.000-0.034) ng/mL NT-Pro-B Natriuret Pep (19.9-100) pg/mL Total Protein (6.3-8.2) g/dL Albumin (3.5-5.1) g/dL Lipase (23-300) U/L Urine Color (Yellow) Urine Appearance (Clear) Urine pH (5.0-9.0) Ur Specific [place] (1.001-1.035) Urine Protein (Negative) mg/dL Urine Glucose (UA) (Negative) mg/dL Urine Ketones (Negative) mg/dL Ur Blood (Man) (Negative) Urine Nitrate (Negative) Urine Bilirubin (Negative) Urine Urobilinogen (<2.0) mg/dL Add Ur Microanalysis Leukocyte Esterase Rfl (Negative) FLASH/UL Urine RBC (0-2) /hpf Urine WBC (0-3) /hpf Ur Squamous Epith Cells (Few) /hpf Urine Bacteria /hpf Urine Casts Hyaline Casts (None) /lpf Urine Mucus /lpf POC Urine HCG, Qual (Negative) <Umu Ziegler PA-C - Last Filed: 05/03/24 00:23> Lab Results 05/02/24 05/02/24 05/02/24 Range/Units 18:49 18:54 22:18 WBC 15.1 H (4.5-10.0) K/mm3 RBC 4.55 (4.2-5.4) M/mm3 Hgb 14.5 (12.0-15.0) g/dL Hct 42.9 (37.0-47.0) % MCV 94.3 (80-100) fl MCH 31.9 (26-34) pg MCHC 33.8 (32-36) g/dl RDW 12.8 (11.5-14.5) % Plt Count 266 (150-375) k/mm3 MPV 10.8 H (7.4-10.4) fl Immature Gran % (Auto) 0.4 (0-0.5) % Neut % (Auto) 75.6 H (45.5-73.1) % Lymph % (Auto) 15.1 L (18.3-44.2) % [place] % (Auto) 8.1 (2.6-8.5) % Eos % (Auto) 0.5 (0-4.4) % Baso % (Auto) 0.3 (0.2-1.2) % Lymph # (Auto) 2.29 (0.9-3.2) K/mm3 [place] # (Auto) 1.2 H (0.1-0.6) K/mm3 Eos # (Auto) 0.1 (0-0.3) K/mm3 Baso # (Auto) 0.1 (0.0-0.1) K/mm3 Abs Immat Gran (auto) 0.06 H (0.00-0.031) K/mm3 Absolute Neuts (auto) 11.4 H (1.3-6.7) K/mm3 Absolute Nucleated RBC 0.000 (0.0-0.012) K/mm3 Nucleated RBC % 0.0 (0.0-0.2) % PT 13.1 (11.1-14.7) Seconds INR 1.0 APTT 31.9 (22.3-36.8) Seconds Sodium 137 (137-145) mmol/L Potassium 4.6 (3.4-5.0) mmol/L Chloride 103 (98-107) mmol/L Carbon Dioxide 23 (22-30) mmol/L Anion Gap 11 (4-12) mmol/L BUN 11 (7-17) mg/dL Creatinine 0.76 (0.7-1.0) mg/dL Estim Creat Clear Calc 105 ml/min Estimated GFR > 60 (59 - ) Glucose 108 (65-110) mg/dL Calcium 10.0 (8.4-10.2) mg/dL Total Bilirubin 0.8 (0.2-1.3) mg/dL AST 28 (14-36) U/L ALT 26 (6-35) U/L Alkaline Phosphatase 96 (38-126) U/L Troponin I < 0.012 (0.000-0.034) ng/mL NT-Pro-B Natriuret Pep 1530 H (19.9-100) pg/mL Total Protein 8.0 (6.3-8.2) g/dL Albumin 4.1 (3.5-5.1) g/dL Lipase 119 103 (23-300) U/L Urine Color Dark yellow (Yellow) Urine Appearance Cloudy H (Clear) Urine pH 5.5 (5.0-9.0) Ur Specific [place] 1.025 (1.001-1.035) Urine Protein 1+ H (Negative) mg/dL Urine Glucose (UA) Negative (Negative) mg/dL Urine Ketones Trace H (Negative) mg/dL Ur Blood (Man) Negative (Negative) Urine Nitrate Negative (Negative) Urine Bilirubin 1+ H (Negative) Urine Urobilinogen 1.0 (<2.0) mg/dL Add Ur Microanalysis Reviewed Leukocyte Esterase Rfl Negative (Negative) FLASH/UL Urine RBC 3-5 H (0-2) /hpf Urine WBC 0-5 (0-3) /hpf Ur Squamous Epith Cells Few (Few) /hpf Urine Bacteria 1+ H /hpf Urine Casts 11-20 Hyaline Casts Present (None) /lpf Urine Mucus Present /lpf POC Urine HCG, Qual Negative (Negative) 05/03/24 05/03/24 Range/Units 04:01 06:57 WBC (4.5-10.0) K/mm3 RBC (4.2-5.4) M/mm3 Hgb (12.0-15.0) g/dL Hct (37.0-47.0) % MCV (80-100) fl MCH (26-34) pg MCHC (32-36) g/dl RDW (11.5-14.5) % Plt Count (150-375) k/mm3 MPV (7.4-10.4) fl Immature Gran % (Auto) (0-0.5) % Neut % (Auto) (45.5-73.1) % Lymph % (Auto) (18.3-44.2) % [place] % (Auto) (2.6-8.5) % Eos % (Auto) (0-4.4) % Baso % (Auto) (0.2-1.2) % Lymph # (Auto) (0.9-3.2) K/mm3 [place] # (Auto) (0.1-0.6) K/mm3 Eos # (Auto) (0-0.3) K/mm3 Baso # (Auto) (0.0-0.1) K/mm3 Abs Immat Gran (auto) (0.00-0.031) K/mm3 Absolute Neuts (auto) (1.3-6.7) K/mm3 Absolute Nucleated RBC (0.0-0.012) K/mm3 Nucleated RBC % (0.0-0.2) % PT (11.1-14.7) Seconds INR APTT (22.3-36.8) Seconds Sodium (137-145) mmol/L Potassium (3.4-5.0) mmol/L Chloride (98-107) mmol/L Carbon Dioxide (22-30) mmol/L Anion Gap (4-12) mmol/L BUN (7-17) mg/dL Creatinine (0.7-1.0) mg/dL Estim Creat Clear Calc ml/min Estimated GFR (59 - ) Glucose (65-110) mg/dL Calcium (8.4-10.2) mg/dL Total Bilirubin (0.2-1.3) mg/dL AST (14-36) U/L ALT (6-35) U/L Alkaline Phosphatase (38-126) U/L Troponin I < 0.012 < 0.012 (0.000-0.034) ng/mL NT-Pro-B Natriuret Pep (19.9-100) pg/mL Total Protein (6.3-8.2) g/dL Albumin (3.5-5.1) g/dL Lipase (23-300) U/L Urine Color (Yellow) Urine Appearance (Clear) Urine pH (5.0-9.0) Ur Specific [place] (1.001-1.035) Urine Protein (Negative) mg/dL Urine Glucose (UA) (Negative) mg/dL Urine Ketones (Negative) mg/dL Ur Blood (Man) (Negative) Urine Nitrate (Negative) Urine Bilirubin (Negative) Urine Urobilinogen (<2.0) mg/dL Add Ur Microanalysis Leukocyte Esterase Rfl (Negative) FLASH/UL Urine RBC (0-2) /hpf Urine WBC (0-3) /hpf Ur Squamous Epith Cells (Few) /hpf Urine Bacteria /hpf Urine Casts Hyaline Casts (None) /lpf Urine Mucus /lpf POC Urine HCG, Qual (Negative) <Sylvain Lange MD - Last Filed: 05/03/24 06:47> Imaging Data Radiologist's impression: ITS Impressions Chest/Abdomen/Pelvis CTA 05/02/24 22:36 IMPRESSION: 1. Mild aortic atherosclerosis. No aneurysm or dissection. 2. 3.4 cm cyst in left ovary, likely a follicular cyst. <Sravanthi Lennon PA-C - Last Filed: 05/03/24 18:06> Critical Care Time Critical Care Time Critical Care Time: No <Sravanthi Lennon PA-C - Last Filed: 05/03/24 18:06> Discharge Plan Discharge Clinical Impression: Elevated brain natriuretic peptide (BNP) level Hypertension Qualifiers: Hypertension type: unspecified Qualified Code(s): I10 - Essential (primary) hypertension Ovarian cyst Qualifiers: Laterality: left Qualified Code(s): N83.202 - Unspecified ovarian cyst, left side <Sravanthi Lennon PA-C - Last Filed: 05/03/24 18:06> Patient Disposition: Still a Patient <Sravanthi Lennon PA-C - Last Filed: 05/03/24 18:06> Condition: Stable <Sravanthi Lennon PA-C - Last Filed: 05/03/24 18:06>
--- OUTSIDE RECORDS SUMMARY | 2024-05-02 16:28 | XMS_ITS | CONTINUITY OF CARE DOCUMENT ---
Author Name landenjennyiveth Address Unknown Organization [facility] Address [address] [place] [address] Phone [phone] Care Team Providers Care Account Services Analyst Name Role Phone Shireen Bryan MD Unavailable [phone] ELISA VASQUEZ MD Unavailable [phone] ELISA VASQUEZ MD Unavailable PROBLEMS Condition Status [...] Bryan MD Pulmonary hypertension active Sheree mustafa FAMILY PROGRAM SPECIALIST ENCOUNTERS Date Type Provider Location Encounter Diag nosis 05/23 - 05/23 In-person encounter Office Visit Shireen Bryan MD [facility] Pulmonary hypertension 05/02 - 05/03 In-person encounter Office Visit Shireen Bryan MD [facility] SVT 04/29 - 04/29 In-person encounter Office Visit Moses Mathews MD [facility] Chest pain-type to be determinedTobacco abuseFAMILY [...] iron binding capacity, unsaturated 185 ug/dL [employer] [phone]/11/2 9 iron binding capacity, total 296 ug/dL [employer] [phone]/11/2 9 free thyroxine index 1.8 [employer] 1.2-4.9 [...] 0-149 9 cholesterol, serum 179 mg/dL [employer] 192-067 7175/11/2 9 alanine aminotransferase (SGPT), serum 21 1/L [...] 3.5-5.2 9 sodium, serum 136 mmol/L [employer] 173-035 2991/11/2 9 urea nitrogen/creatinine ratio, serum 15 [employer] [...] Estab. 9 platelet count 290 X10E3/UL [employer] [phone]/11/2 9 red blood cell distribution width 13.1 [...] 3 times daily - 05/23 Sheree Crawfordmiglalexa FAMILY PROGRAM SPECIALIST Symbicort 160-4.5 mcg/actuation HFA aerosol inhaler completed 2 puff once a day - 05/23 Luis Alberto Ventolin HFA 90 mcg/actuation HFA aerosol inhaler active as needed Shireen Bryan MD hydrochlorothiazide 25 mg tablet completed 1 tablet by mouth once a day - 05/23 Luis Alberto [facility] SOCIAL HISTORY Date Observation Value Provider personal history of marijuana use no Sheree Ventimiglia FAMILY PROGRAM SPECIALIST drug use no Sheree Ventimig ava [facility] alcohol use no Sheree Ventimig ava [facility] smoking/tobacco cess ation, patient education and counseling yes Sheree Ventimiglia [facility] number of years as a smoker 20 a Sheree Ventimiglia [facility] smoking history, tot al pack/day 1 Sheree Ventimiglia [facility] cigarette use yes Sheree Ventimi glia [facility] smoking status Current every day smoker A silas Ventimiglia [facility] smoking/tobacco cess ation, patient education and [...] Payer name Policy type / Coverage type [place] red constitution party ID [facility]ET [employer] [facility] Medicaid [id number] [employer] [place] Medicare [id number] ADVANCE DIRECTIVES Name Date DISCUSSED - NO DECISION MADE TREATMENT PLAN Date Name Performer Cardiology:weight loss encourage dElvia [facility] Cardiology: H er updated medication list for this problem includes: Atorvastatin 40 Mg Tablet (Atorvastatin) ..... Take 1 tablet by mouth once a day [facility] Cardiology:severe on recent echo E F of 54% w ill do sleep study as concern for ASHER [facility] Cardiology:cessation encouraged. [facility] Cardiology:BP uncont rolled W ill increase cardizem [...] 1 tablet by mouth once a day [facility] Cardiology:she has o beity, daytime fatigue, snoring, multiple night wakenings suggestive of ASHER w ill arrange sleep study for further evalution [facility] Cardiology:noted to have recurrent episodes of tele [...] by mouth once a day Sheree Menon FAMILY PROGRAM SPECIALIST Cardiology: H er updated medication list for [...] sleep study Shireen Bryan MD Cardiology:Noted on windshield technician. Continues to feel frequent racing and palpitations [...]
--- OUTSIDE RECORDS SUMMARY | 2024-05-02 16:28 | XMS_ITS | Continuity of Care Document ---
Author Organization [facility] Address [address] [place] [address] Phone Care Team Providers Care Nuclear Power Plant Engineer Name Role Phone Unavailable Unavailable Unavailable Allergies, [...] MIN [facility], [address], [place], [place], [id number] , tel: [phone] [facility] establish care (chief complaint) med refills (chief complaint) Chronic painHypertensi onAsthmaMigrai neAnxietyNause aObesityBody Mass Index 40.0-44.9, adult 201 4 No Information [facility], [address], [place], [place], [id number] , tel: [phone] Historic Immunization Location No Information 9 No [...] establish care pt previously seen by in [place], Ignacio Ingram. pt has pill bottles with physicians name on them for alprazolam and percocet last filled in July. pt states last saw previous PCP in May. was seening him for >10 yrs and he has all my records"pt states she is transferring care b/c she recently moved to [place] after her recent divorce. she has family [...] ortho, pain management, psychiatry, surgery both in [place] and [place]. pt states she is trying to get in to seen ortho and has called to see if pain management at [facility] is accepting new patients but she has not heard back from them. has not tried to establish with psychiatry in [place].pt states she has been on pain medication [...] Base Profile with Confirmation, without medMATCH, Urine ([id number]), Collected on: , Sent on: Sent Future Order: Lab Order CBC (H/H , RBC, INDICES, WBC, PLT) ([id number]), Collected on: , Sent on: Sent Future Order: Lab Order COMPREHE NSIVE METABOLIC PANEL ([id number]), Collected on: , Sent on: Sent Future Order: Lab Order POC Hemo globin A1C ([id number]), Collected on: , Sent on: Sent Future Order: Lab Order HEPATITI S B SURFACE ANTIGEN W/REFL CONFIRM ([id number]), Collected on: , Sent on: Sent Future Order: Lab Order HEPATITI S C ANTIBODY ([id number]), Collected on: , Sent on: Sent Future Order: Lab Order HIV AB, HIV 1/2, EIA, WITH REFLEXES ([id number]), Collected on: , Sent on: Sent Future Order: Lab Order RPR (DX) W/REFL TITER AND CONFIRMATORY TESTING ([id number]), Collected on: , Sent on: Sent Future Order: Lab Order TSH W/RE FLEX TO FT4 ([id number]), Collected on: , Sent on: Sent History Of Present Illness Encounter Date Complaint History Of Prese nt Illness establish care new patient here for medication refill and establish care pt previously seen by in [place], Ignacio Ingram. pt has pill bottles with physicians name on them for alprazolam and percocet last filled in July. pt states last saw previous PCP in May. was seening him for >10 yrs and he has all my records pt states she is transferring care b/c she recently moved to [place] after her recent divorce. she has family [...] ortho, pain management, psychiatry, surgery both [place]. pt states she is trying to get in to seen ortho and has called to see if pain management at [facility] is accepting new patients but she has not heard back from them. has not tried to establish with psychiatry in [place].pt states she has been on pain medication [...] Pain Score 8/10 Instructions Date Instruction Additional Brantr hemalatha discussed with pt shante gunter's process regarding continuing chronic narcotic pain medication refills including controlled substance agreement, urine drug screen, consultation with behavioral health and review of previous PCP records prior to writing prescriptions. labs ordered. controlled substance agreement printed. instructions given for requesting records.referral to [facility] neuro pain management clinic. pt to also [...] could improve migraine frequency. Related to Migraine cont current medicat ions. refills sent to pharmacy Related to Asthma continue current med ications. refills sent to pharmacy. Related to Hypertension Discussed nutrition and increased physical activity Related [...] Mental Status Date Cognitive Assessment Orientation - [place] ed to time, place, person, situation. Patient Care Teams Name Effective Dates (start - stop) Status Members No Information
--- OUTSIDE RECORDS SUMMARY | 2024-05-02 16:28 | XMS_ITS | Continuity of Care Document ---
Author Organization [facility] Address [address] [place] [address] [place] [address] Phone Care Team Providers Care Dough Maker Name Role Phone Darnell Joiner MD Unavailable Unavailable Allergies, Adverse Reactions, Alerts Substance Reaction Status Criticality No Known Allergies Active No Inform ation Medications Medication Instructions Dosage Effective Dates (start - stop) Status Comments Norvasc 10 mg tablet take 1 tablet by or al route every day 10 MG - Active Celexa 20 mg tablet take 1 tablet by ora l route every day 20 MG - Active Wellbutrin XL 150 mg 24 hr tablet, extended release take 1 tablet by oral route every morning 150 MG - Active omeprazole 20 mg capsule,delayed release take 1 capsule by oral route every day before a meal 20 MG - Active Procedures Procedure Date OFFICE/OUTPATIENT VISIT, [facility] Advance Directives Directive Yes / No Effective Date File Name No Information Encounters Encounter Description Practice Location Reason(s) For Visit Diagnoses Date Provider Providers Copied on Encounter OFFICE/OUTPA TIENT VISIT, NEW [facility], [address] [place], [id number], [place] tel:[phone] [facility] HTN (chief complaint) anxiety1 (chief complaint) stomach (chief complaint) Essential (primary) hypertensionGERD w/o esophagitisGastropa resisAnxiolytic dependence [address] [place], [id number] , [place]. tel:[phone] Referring Provider: Darnell Joiner, [address] [facility] [place], [id number]. tel:[phone] Family History Family Member Type Diagnosis Age At Onset Brother Problem (finding) ? heart disease but not sure Father Problem (finding) Alive and well Sister Problem (finding) of cervcial CA Mother Problem (finding) Alive and well Payers Payer name Insurance type Covered constitution party ID Authoriza tion(s) No Information Social History [...] Mental Status Date Cognitive Assessment Orientation - [place] ed to time, place, person, situation.
--- OUTSIDE RECORDS SUMMARY | 2024-05-02 16:28 | XMS_ITS | Patient Health Summary ---
Author Organization [facility] Address [address] [place] [address] Care Team Providers Care Oncology Social Worker Name Role Phone Sofia Healy MD Primary Care Provider Note from [facility],non-owned Affiliates and Associated Physician Practices is amultiple site organization consisting of ambulatory clinics and hospital sitesin [place], [place], [place] and [place]. This disclosure is being madepursuant to the Care Everywhere program and may not contain all information available regarding this patient. Last updated 17.[facility] Allergies No known active allergies Medications * [...] 10.5 10? 3 /uL 10/06/2022 5:06 PM [facility] RBC 3.77(L) 3.80 - 5.20 10? 6 /uL 10/06/2022 5:06 PM [facility] Hemoglobin 11.9(L) 12.0 - 15.6 g/dL 10/06/2022 5:06 PM [facility] Hematocrit 35.3 35.0 - 45.0 % 10/06/2022 5:06 PM [facility] MCV 93.6 80.7 - 98.3 fL 10/06/2022 5:06 PM [facility] MCH 31.6 26.7 - 34.0 pg 10/06/2022 5:06 PM [facility] MCHC 33.7 30.8 - 35.9 g/dL 10/06/2022 5:06 PM [facility] RDW-SD 46.5 36.0 - 50.0 fL 10/06/2022 5:06 PM [facility] RDW-CV 13.7 11.2 - 14.8 % 10/06/2022 5:06 PM [facility] Platelet Count 285 150 - 400 10? 3 /uL 10/06/2022 5:06 PM [facility] MPV 10.8 9.4 - 12.9 fL 10/06/2022 5:06 PM [facility] nRBC Absolute 0.00 0 10? 3 /uL 10/06/2022 5:06 PM [facility] nRBC Auto 0.0 0 /100 WBC 10/06/2022 5:06 PM [facility] Neutrophils % 70.1(H) 35.0 - 70.0 % 10/06/2022 5:06 PM [facility] Lymphocytes % 18.2(L) 20.0 - 43.0 % 10/06/2022 5:06 PM [facility] Monocytes % 8.9 5.0 - 13.0 % 10/06/2022 5:06 PM [facility] Eosinophils % 1.9 0.0 - 6.0 % 10/06/2022 5:06 PM [facility] Basophil % 0.5 0.0 - 2.0 % 10/06/2022 5:06 PM [facility] Neutrophils Absolute 7.77(H) 1.60 - 7.00 10? 3 /uL 10/06/2022 5:06 PM [facility] Lymphocyte Absolute 2.01 1.10 - 3.90 10? 3 /uL 10/06/2022 5:06 PM [facility] Monocytes Absolute 0.99 0.26 - 1.07 10? 3 /uL 10/06/2022 5:06 PM CDT [facility] Eosinophils Absolute 0.21 0.00 - 0.47 10? 3 /uL 10/06/2022 5:06 PM CDT [facility] Basophils Absolute 0.05 0.00 - 0.08 10? 3 /uL 10/06/2022 5:06 PM CDT [facility] Immature Granulocytes % 0.4 0.0 - 1.0 % 10/06/2022 5:06 PM CDT [facility] Immature Granulocytes Absolute 0.04 10/06/2022 5:06 PM T [facility] Blood BLOOD SPECIMEN / Unknown Venipuncture / Unknown 10/06/2022 4:52 PM CDT 10/06/2022 5:01 PM CDT Lavinia Mendoza [employer] RENTAL MANAGER-FOOT TENDER LAB - HEMATO LOGY ORDERABLES [address] [address], [facility] [phone] * (ABNORMAL) COMPREHENSIVE METABOLIC PANEL (10/06/2022 4:52 PM CDT) Only the most recent of4 resultswithin the time period is included. BUN 11 7 - 26 mg/dL 10/06/2022 5:36 PM [facility] Creatinine 0.78 0.56 - 0.96 mg/dL 10/06/2022 5:36 PM [facility] Sodium 138 136 - 145 mmol/L 10/06/2022 5:36 PM T [facility] Potassium 4.4 3.5 - 4.5 mmol/L 10/06/2022 5:36 PM [facility] Comment:Hemolysis detected i n this specimen. Hemolysis may cause false elevations in potassium leading to pseudohyperkalemia or masked hypokalemia. Recommend repeat testing if clinically indicated. Chloride 105 98 - 107 mmol/L 10/06/2022 5:36 PM CDT [facility] CO2 20(L) 22 - 29 mmol/L 10/06/2022 5:36 PM [facility] Glucose 101 70 - 115 mg/dL 10/06/2022 5:36 PM [facility] Calcium 9.0 8.4 - 10.2 mg/dL 10/06/2022 5:36 PM [facility] Protein Total 7.4 6.0 - 8.3 g/dL 10/06/2022 5:36 PM [facility] Comment:Hemolysis detected i n this specimen. Hemolysis is known to cause elevations in this analyte. Caution should be exercised in the interpretation of this result. Recommend repeat testing if clinically indicated. Albumin 3.7 3.4 - 5.0 g/dL 10/06/2022 5:36 PM [facility] Bilirubin Total 0.8 0.2 - 1.2 mg/dL 10/06/2022 5:36 PM [facility] Alkaline Phosphatase 108 40 - 150 U/L 10/06/2022 5:36 PM [facility] ALT 87(H) 5 - 55 U/L 10/06/2022 5:36 PM [facility] AST 31 5 - 34 U/L 10/06/2022 5:36 PM [facility] Comment:Hemolysis detected i n this specimen. Hemolysis is known to cause elevations in this analyte. Caution should be exercised in the interpretation of this result. Recommend repeat testing if clinically indicated. Anion Gap 17 8 - 18 10/06/2022 5:36 PM [facility] BUN/Creatinine Ratio 14 7 - 23 09/2022 5:36 PM [facility] Osmolality Calculated 286 270 - 300 mOsm/kg 10/06/2022 5:36 PM [facility] Albumin/Globulin Ratio 1.0(L) 1.1 - 2.3 5:36 PM [facility] eGFR by CKD-EPI >90 >=90 mL/min/1. 73 m2 10/06/2022 5:36 PM [facility] Blood BLOOD SPECIMEN / Unknown Venipuncture / Unknown 10/06/2022 4:52 PM CDT 10/06/2022 5:01 PM CDT Lavinia Mendoza [employer] RENTAL MANAGER-FOOT TENDER LAB - CHEMIS TRY ORDERABLES [facility] [address] [place] [address], [facility] [phone] * (ABNORMAL) CBC W/O DIFFERENTIAL (10/01/2022 12:26 PM T) Only the most recent of5 resultswithin the time period is included. WBC 5.9 3.5 - 10.5 10? 3 /uL 10/01/2022 1:13 PM [facility] RBC 3.32(L) 3.80 - 5.20 10? 6 /uL 10/01/2022 1:13 PM [facility] Hemoglobin 10.5(L) 12.0 - 15.6 g/dL 10/01/2022 1:13 PM [facility] Hematocrit 31.3(L) 35.0 - 45.0 % 10/01/2022 1:13 PM [facility] MCV 94.3 80.7 - 98.3 fL 10/01/2022 1:13 PM [facility] MCH 31.6 26.7 - 34.0 pg 10/01/2022 1:13 PM [facility] MCHC 33.5 30.8 - 35.9 g/dL 10/01/2022 1:13 PM [facility] RDW-SD 46.1 36.0 - 50.0 fL 10/01/2022 1:13 PM [facility] RDW-CV 13.4 11.2 - 14.8 % 10/01/2022 1:13 PM [facility] Platelet Count 205 150 - 400 10? 3 /uL 10/01/2022 1:13 PM [facility] MPV 11.5 9.4 - 12.9 fL 10/01/2022 1:13 PM [facility] nRBC Absolute 0.00 0 10? 3 /uL 10/01/2022 1:13 PM [facility] nRBC Auto 0.0 0 /100 WBC 10/01/2022 1:13 PM [facility] Blood BLOOD SPECIMEN / Unknown Lab Venipuncture / Unknown 10/01/2022 12:26 PM CDT 10/01/2022 12:54 PM CDT Lurdes Reyes MD LAB - HEMATOLOGY ORD ALYSSA Performing Organization Address City/[facility]/ZIP Co de Phone Number [facility] [address] [place] [address], [place] [phone] * HCG BETA BLOOD QUANTITATIVE (09/30/2022 6:30 PM CDT) Beta-hCG Total Quantitative <3 mIU/mL 09/30/2022 7:16 PM CDT [facility] Comment: HCG Numeric Result Interpretation: ? Non- [...] 6:30 PM CDT 09/30/2022 6:39 PM CDT Lurdes Reyes MD LAB - CHEMISTRY LIN HEART Performing Organization Address City/[facility] Co de Phone Number [facility] [address] [place] [address], [place] [phone] * BLOOD TYPE VERIFICATION (09/30/2022 5:13 PM CDT) ABO Rh O POS 09/30/2022 5:5 3 PM CDT [facility] Blood Bank BLOOD SPECIMEN / Unknown 09/30/2022 5:13 PM CDT 09/30/2022 5:20 PM CDT Solange Chapin MD LAB - BLOOD BANK ORD ALYSSA [facility] [address] [place] [address], [place] [phone] * PREPARE PLATELET PHERESIS UNIT(S), 1 Units (09/30/2022 5:05 PM CDT) Unit Description LR PLT Phere B7 [facility] Unit ABO B [facility] Unit Rh POS [facility] Product Number P28 [facility] Unit Donor # [id number] [facility] Unit Status transfused [facility] Product Code [id number] [facility] Blood Type Barcode 7300 [facility] Expiration Date [id number] S BLOOD BANK LAB Blood Bank BLOOD SPECIMEN / Unknown 09/30/2022 3:31 PM CDT Lurdes Reyes MD LAB - BLOOD BANK ORD ERABLES [facility] [address] [place] [address], [facility] [phone] * CT CHEST ABDOMEN PELVIS W CONT [...] verification. > Dictated by Herminio Cole MD (radiology scheduler). Kelsie Hayes MD have personally reviewed and interpreted this examination/study. > Interpreting Provider: Kelsie Stern MD on 09/30/2022 5:37 PM Narrative 09/30/2022 5:37 PM CDT PROCEDURE: ??CT CHEST ABDOMEN PELVIS W CONT, CT ANGIO LOWER EXTREMITY LEFT, DATE/TIME OF EXAM: ??09/30/2022 4:34 PM, LOCATION ??[facility] INDICATION: Trauma ADDITIONAL CLINICAL INFORMATION: Ordering Provider [...] DATE/TIME OF EXAM: 09/30/2022 4:34 PM, LOCATION [facility] INDICATION: Trauma ADDITIONAL CLINICAL INFORMATION: Ordering Provider [...] verification. > Dictated by Herminio Cole MD (radiology scheduler). Kelsie Hayes MD have personally reviewed and [...] verification. > Dictated by Herminio Cole MD (radiology scheduler). Kelsie Hayes MD have personally reviewed and interpreted this examination/study. > Interpreting Provider: Kelsie Stern MD on 09/30/2022 5:37 PM Narrative 09/30/2022 5:37 PM CDT PROCEDURE: ??CT CHEST ABDOMEN PELVIS W CONT, CT ANGIO LOWER EXTREMITY LEFT, DATE/TIME OF EXAM: ??09/30/2022 4:34 PM, LOCATION ??[facility] INDICATION: Trauma ADDITIONAL CLINICAL INFORMATION: Ordering Provider [...] DATE/TIME OF EXAM: 09/30/2022 4:34 PM, LOCATION [facility] INDICATION: Trauma ADDITIONAL CLINICAL INFORMATION: Ordering Provider [...] verification. > Dictated by Herminio Cole MD (radiology scheduler). IKelsie MD have personally reviewed and interpreted [...] > Dictated by Parrish Laguna MD, MD (radiology scheduler). I, Vincenzo Nascimento MD have personally reviewed and interpreted this examination/study. > Interpreting Provider: Vincenzo Nascimento MD on 09/30/2022 4:52 PM Narrative 09/30/2022 4:52 PM CDT PROCEDURE: ??CT CERVICAL SPINE WO CONTRAST, CT LUMBAR SPINE WO CONTRAST, CT THORACIC SPINE WO CONTRAST, DATE/TIME OF EXAM: ??09/30/2022 4:34 PM, LOCATION [facility] INDICATION: Trauma ADDITIONAL CLINICAL INFORMATION: Ordering Provider [...] DATE/TIME OF EXAM: 09/30/2022 4:34 PM, LOCATION [facility] INDICATION: Trauma ADDITIONAL CLINICAL INFORMATION: Ordering Provider [...] > Dictated by Parrish Laguna MD, MD (radiology scheduler). Vincenzo Hayes MD have personally reviewed and interpretedthis examination/study. > Interpreting Provider: Vicnenzo Nascimento MD on 09/30/2022 4:52 PM Lurdes [...] pelvis. > Dictated by Parrish Laguna MD, (radiology scheduler). Vincenzo Hayes MD have personally reviewed and interpreted this examination/study. > Interpreting Provider: Vincenzo Nascimento MD on 09/30/2022 4:52 PM Narrative 09/30/2022 4:52 PM CDT PROCEDURE: ??CT CERVICAL SPINE WO CONTRAST, CT LUMBAR SPINE WO CONTRAST, CT THORACIC SPINE WO CONTRAST, DATE/TIME OF EXAM: ??09/30/2022 4:34 PM, LOCATION [facility] INDICATION: Trauma ADDITIONAL CLINICAL INFORMATION: Ordering Provider [...] DATE/TIME OF EXAM: 09/30/2022 4:34 PM, LOCATION [facility] INDICATION: Trauma ADDITIONAL CLINICAL INFORMATION: Ordering Provider [...] pelvis. > Dictated by Parrish Laguna MD, (radiology scheduler). Vincenzo Hayes MD have personally reviewed and [...] pelvis. > Dictated by Parrish Laguna MD, (radiology scheduler). Vincenzo Hayes MD have personally reviewed and interpreted this examination/study. > Interpreting Provider: Vincenzo Nascimento MD on 09/30/2022 4:52 PM Narrative 09/30/2022 4:52 PM CDT PROCEDURE: ??CT CERVICAL SPINE WO CONTRAST, CT LUMBAR SPINE WO CONTRAST, CT THORACIC SPINE WO CONTRAST, DATE/TIME OF EXAM: ??09/30/2022 4:34 PM, LOCATION [facility] INDICATION: Trauma ADDITIONAL CLINICAL INFORMATION: Ordering Provider [...] DATE/TIME OF EXAM: 09/30/2022 4:34 PM, LOCATION [facility] INDICATION: Trauma ADDITIONAL CLINICAL INFORMATION: Ordering Provider [...] > Dictated by Parrish Laguna MD, MD (radiology scheduler). I, Vincenzo Nascimento MD have personally reviewed [...] DATE/TIME OF EXAM: ??09/30/2022 4:34 PM, LOCATION ??[facility] INDICATION: Trauma EXAMINATION: Computed tomography (CT) of [...] DATE/TIME OF EXAM: 09/30/2022 4:34 PM, LOCATION [facility] INDICATION: Trauma EXAMINATION: Computed tomography (CT) of [...] DATE/TIME OF EXAM: ??09/30/2022 3:25 PM, LOCATION ??[facility] INDICATION: Trauma COMPARISON: Chest x-ray from 09/18/2013 FINDINGS/IMPRESSION: There is no focal consolidation, pleural effusion, or pneumothorax. The cardiomediastinal silhouette is normal. The visible bony thorax is intact. Report dictated by Parrish Laguna DO (radiology scheduler). IParrish DO have personally reviewed and interpreted this examination/study. > Interpreting Provider: Parrish Albert DO on 10/01/2022 11:01 AM Procedure Note Parrish Albert DO - 10/01/2022 PROCEDURE: XR CHEST 1VW PORTABLE, DATE/TIME OF EXAM: 09/30/2022 3:25 PM, LOCATION [facility] INDICATION: Trauma COMPARISON: Chest x-ray from 09/18/2013 FINDINGS/IMPRESSION: There is no focal consolidation, pleural effusion, or pneumothorax. The cardiomediastinal silhouette is normal. The visible bony thorax isintact. Report dictated by Parrish Laguna DO (radiology scheduler). Parrish Hayes DO have personally reviewed and [...] identified. Report dictated by Parrish Laguna DO (radiology scheduler). Parrish Hayes DO have personally reviewed and interpreted this examination/study. > Interpreting Provider: Parrish Albert DO on 10/01/2022 11:01 AM Narrative 10/01/2022 11:01 AM CDT PROCEDURE: ??XR FEMUR RIGHT 2VW, DATE/TIME OF EXAM: ??09/30/2022 3:39 PM, LOCATION ??[facility] INDICATION: S09.90XA: Injury of head, initial encounter COMPARISON: None. FINDINGS: The femur is intact without acute fracture. The joint spaces are preserved. Bone density and texture are normal. Procedure Note Parrish Albert DO - 10/01/2022 PROCEDURE: XR FEMUR RIGHT 2VW, DATE/TIME OF EXAM: 09/30/2022 3:39 PM, LOCATION [facility] INDICATION: S09.90XA: Injury of head, initial encounter COMPARISON: None. FINDINGS: The femur is intact without acute fracture. The joint spaces arepreserved. Bone density and texture are normal. IMPRESSION: No acute femoral fracture identified. Report dictated by Parrish Laguna DO (radiology scheduler). Parrish Hayes DO have personally reviewed and [...] identified. Report dictated by Parrish Laguna DO (radiology scheduler). Parrish Hayes DO have personally reviewed and interpreted this examination/study. > Interpreting Provider: Parrish Albert DO on 10/01/2022 11:01 AM Narrative 10/01/2022 11:01 AM CDT PROCEDURE: ??XR PELVIS 1 OR 2VW, DATE/TIME OF EXAM: ??09/30/2022 3:39 PM, LOCATION ??[facility] INDICATION: Trauma Fracture suspected COMPARISON: None. FINDINGS: No acute fracture is identified. The femoral heads appear well-seated within their respective acetabula. The pubic symphysis is intact. Bone density and texture are normal. The sacroiliac joints are normal. Procedure Note Parrish Albert DO - 10/01/2022 PROCEDURE: XR PELVIS 1 OR 2VW, DATE/TIME OF EXAM: 09/30/2022 3:39 PM, LOCATION [facility] INDICATION: Trauma Fracture suspected COMPARISON: None. FINDINGS: No acute fracture is identified. The femoral heads appear well-seated within their respective acetabula. The pubic symphysis is intact. Bone density and texture are normal. The sacroiliac joints are normal. IMPRESSION: No acute fracture identified. Report dictated by Parrish Laguna DO (radiology scheduler). Parrish Hayes DO have personally reviewed and [...] identified. Report dictated by Parrish Laguna DO (radiology scheduler). Parrish Hayes DO have personally reviewed and interpreted this examination/study. > Interpreting Provider: Parrish Albert DO on 10/01/2022 11:01 AM Narrative 10/01/2022 11:01 AM CDT PROCEDURE: ??XR FEMUR LEFT 2VW, DATE/TIME OF EXAM: ??09/30/2022 3:38 PM, LOCATION ??[facility] INDICATION: S09.90XA: Injury of head, initial encounter COMPARISON: None. FINDINGS: The femur is intact without acute fracture. The joint spaces are preserved. Bone density and texture are normal. Procedure Note Parrish Albert DO - 10/01/2022 PROCEDURE: XR FEMUR LEFT 2VW, DATE/TIME OF EXAM: 09/30/2022 3:38 PM, LOCATION [facility] INDICATION: S09.90XA: Injury of head, initial encounter COMPARISON: None. FINDINGS: The femur is intact without acute fracture. The joint spaces arepreserved. Bone density and texture are normal. IMPRESSION: No acute femoral fracture identified. Report dictated by Parrish Laguna DO (radiology scheduler). Parrish Hayes DO have personally reviewed and interpreted this examination/study. > Interpreting Provider: Parrish Albert DO on 10/01/2022 11:01 AM Lurdes Reyes MD DIAGNOSTIC IMAGING O RDERABLES * TEG 6 GLOBAL HEMOSTASIS W/ LYSIS (09/30/2022 3:21 PM CDT) Pathologist [facility] Citrated Kaolin R (Reaction Time) 7.3 4.6 - 9.1 min 09/30/2022 4:35 PM CDT [facility] Citrated Kaolin LY30 (Lysis) 1.4 0.0 - 2.6 % 09/30/2022 4:35 PM CDT [facility] Citrated Functional Fibrinogen MA (Max Amplitude) 23.2 15.0 - 32.0 mm 09/30/2022 4:35 PM T [facility] Citrated RapidTEG MA (Max Amplitude) 65.5 52.0 - 70.0 mm 09/30/2022 4:35 PM T [facility] Blood BLOOD SPECIMEN / Unknown Venipuncture / Unknown 09/30/2022 3:21 PM CDT 09/30/2022 3:30 PM CDT Lurdes Reyes MD LAB - HEMATOLOGY ORD ERABLES [facility] [address] [place] [address], [facility] [phone] * (ABNORMAL) TEG 6S PLATELET MAPPING (09/30/2022 3:21 PM CDT) TEGPLM (Max Amplitude) Koalin 62.6 53.0 - 68.0 mm 09/30/2022 4:25 PM [facility] TEGPLM (Max Amplitude) ACTF 11.6 2.0 - 19.0 mm 09/30/2022 4:25 PM [facility] TEGPLM (Max Amplitude) ADP 55.0 45.0 - 69.0 mm 09/30/2022 4:25 PM [facility] TEGPLM (Max Amplitude) AA 23.5(L) 51.0 - 71.0 mm 09/30/2022 4:25 PM [facility] Comment:AA MA below normal r mickie. Inhibition present. TEGPLM %Inhibition ADP 14.9 0.0 - 17.0 % 09/30/2022 4:25 PM [facility] TEGPLM %Inhibition AA 76.7(H) 0.0 - 11.0 % 09/30/2022 4:25 PM [facility] TEGPLM %Aggregation ADP 85.1 83.0 - 100.0 % 09/30/2022 4:25 PM [facility] TEGPLM % Aggregation AA 23.3(L) 89.0 - 100.0 % 09/30/2022 4:25 PM CDT [facility] Blood BLOOD SPECIMEN / Unknown Venipuncture / Unknown 09/30/2022 3:21 PM CDT 09/30/2022 3:30 PM CDT Lurdes Reyes MD LAB - HEMATOLOGY ORD ERABLES Performing Organization Address City/[facility]/ZIP Co de Phone Number [address] [address], [facility] [phone] * PTT [facility] (09/30/2022 3:21 PM CDT) APTT 31.2 23.0 - 38.4 Seconds 09/30/2022 3:57 PM CDT [facility] Comment:Suggested therapeuti c range for full dose I.V. unfractionated heparin therapy for venous thromboembolism is 71 to 109 seconds. Blood BLOOD SPECIMEN / Unknown Venipuncture / Unknown 09/30/2022 3:21 PM CDT 09/30/2022 3:29 PM CDT Lurdes Reyes MD LAB - COAGULATION OR DERABLES Performing Organization Address [facility] Co de Phone Number [address] [address], [facility] [phone] * PT-INR [facility] (09/30/2022 3:21 PM CDT) Only the most recent of2 resultswithin the time period is included. PT 13.1 12.1 - 14.8 Seconds 09/30/2022 3:57 PM CDT [facility] INR 1.0 See Comment 09/30/2022 3:57 PM CDT [facility] Comment:The suggested therap eutic range for standard coumadin (warfarin) therapy is an INR of 2.0-3.0. For high-risk patients (Mechanical Mitral Valve Prosthesis, etc.), the suggested prophylactic therapeutic range is an INR of 2.5-3.5. Blood BLOOD SPECIMEN / Unknown Venipuncture / Unknown 09/30/2022 3:21 PM CDT 09/30/2022 3:29 PM CDT Lurdes Reyes MD LAB - COAGULATION OR DERABLES [facility] [address] [place] [phone], [place] [phone] * TYPE + SCREEN PANEL (09/30/2022 3:21 PM CDT) [facility] Antibody Screen NEG 4:23 PM CDT [facility] ABO Rh O POS 09/30/2022 4:23 PM CDT [facility] Blood Bank BLOOD SPECIMEN / Unknown Venipuncture / Unknown 09/30/2022 3:21 PM CDT 09/30/2022 3:31 PM CDT Lurdes Reyes MD LAB - BLOOD BANK ORD ERABLES Performing Organization Address City/[facility]/ZIP Co de Phone Number [facility] [address] [place] [address], [place] [phone] * (ABNORMAL) BASIC METABOLIC PANEL (CALCIUM TOTAL) (09/30/2022 3:21 PM CDT) [facility] BUN 15 7 - 26 mg/dL 09/30/2022 4:15 PM CDT [facility] Creatinine 0.97(H) 0.56 - 0.96 mg/dL 09/30/2022 4:15 PM CDT [facility] Sodium 139 136 - 145 mmol/L 09/30/2022 4:15 PM CDT [facility] Potassium 3.7 3.5 - 4.5 mmol/L 09/30/2022 4:15 PM CDT [facility] Chloride 106 98 - 107 mmol/L 09/30/2022 4:15 PM CDT [facility] CO2 22 22 - 29 mmol/L 09/30/2022 4:15 PM CDT [facility] Glucose 155(H) 70 - 115 mg/dL 09/30/2022 4:15 PM CDT [facility] Calcium 9.6 8.4 - 10.2 mg/dL 09/30/2022 4:15 PM CDT [facility] Anion Gap 15 8 - 18 09/30/2022 4:15 PM T [facility] BUN/Creatinine Ratio 15 7 - 23 09/30/2022 4:15 PM T [facility] Osmolality Calculated 292 270 - 300 mOsm/kg 09/30/2022 4:15 PM T [facility] eGFR by CKD-EPI 74(L) >=90 mL/min/1.7 3 m2 09/30/2022 4:15 PM CDT [facility] Blood BLOOD SPECIMEN / Unknown Venipuncture / Unknown 09/30/2022 3:21 PM CDT 09/30/2022 3:29 PM CDT Lurdes Reyes MD LAB - CHEMISTRY ORDShonda HEART Performing Organization Address [facility]/State/ZIP Co de Phone Number [facility] [address] [place] [address], [facility] [phone] * ALCOHOL ETHYL BLOOD (09/30/2022 3:21 PM CDT) Ethanol (mg/dL) <10 <10 mg/dL 4:01 PM T [facility] Ethanol Calculated (g/dL) <0.010 <=0.010 g/dL 09/30/2022 4:01 PM T [facility] Blood BLOOD SPECIMEN / Unknown Venipuncture / Unknown 09/30/2022 3:21 PM CDT 09/30/2022 3:29 PM CDT Narrative [facility] - 09/30/2022 4:01 PM CDT Ethanol Interp <10: None Detected. Depression of TIGHT ROPE WALKER: >100 mg/dl Potentially Critical: >250 mg/dl Potentially [...] Reyes MD LAB - CHEMISTRY ORDE RABAIDEN [facility] [address] [place] [address], [facility] [phone] * HCG URINE QUALITATIVE - POCT (IP) [facility] (09/08/2013 8:52 PM CDT) Only the most recent of2 resultswithin the time period is included. Test Urine Negative [facility] Urine specimen (specimen) 09/08/2013 8:52 PM CDT Xavi Shukla MD LAB - POINT OF CARE ORDERABLES Performing Organization Address [facility]/ZIP Co de Phone Number [facility] * (ABNORMAL) URINALYSIS W/MICROSCOPIC NO CULTURE (09/08/2013 8:52 PM CDT) Color UA Yellow Straw, Yellow, Colorless, Light Yellow [facility] Clarity UA Hazy(A) Clear [facility] Specific Wanda UA 1.021 1.001 - 1.030 [facility] pH UA 5.5 5.0 - 8.0 [facility] Protein UA 30(A) <=20 mg/dL [facility] Glucose UA Negative Negative mg/dL [facility] Ketone UA Trace(A) Negative mg/dL [facility] Bilirubin UA Negative Negative mg/dL [facility] Blood UA Negative Negative [facility] Nitrite UA Negative Negative [facility] Leukocyte Esterase Large(A) Negative [facility] Urobilinogen UA 3.0(H) <2.0 mg/dL [facility] RBC UA 4 0 - 8 /HPF [facility] WBC UA 16(H) 0 - 2 /HPF [facility] Bacteria UA Rare Rare, Occasional, None /HPF [facility] Squamous Epithelial Cells UA 11(H) 0 - 1 /HPF [facility] Mucus UA Many(A) None /LPF [facility] Urine specimen (specimen) 09/08/2013 8:52 PM CDT 09/08/2013 8:59 PM CDT Xavi Shukla MD LAB - URINALYSIS ORD ERABLES Performing Organization Address City/[facility]/ZIP Co de Phone Number [address] [phone] * TROPONIN I (09/08/2013 6:15 PM CDT) Troponin I <0.032 <0.032 ng/mL [facility] Blood specimen (specimen) BLOOD SPECIMEN / Unknown 09/08/2013 6:15 PM CDT 09/08/2013 6:19 PM CDT Historical Provider LAB - CHEMISTRY O OLIVIA Performing Organization Address [facility]/ZIP Co de Phone Number [address] [phone] * LIPASE BLOOD (09/08/2013 6:15 PM CDT) Only the most recent of2 resultswithin the time period is included. Lipase 30 8 - 78 Units/L [facility] Blood specimen (specimen) BLOOD SPECIMEN / Unknown 09/08/2013 6:15 PM CDT 09/08/2013 8:31 PM CDT Xavi Shukla MD LAB - CHEMISTRY LIN HEART Performing Organization Address [facility] Co de Phone Number [address] [phone] * CK + CKMB PANEL (09/08/2013 6:15 PM CDT) CK Total 37 30 - 200 Units/L [facility] CK-MB 0.3 0.0 - 6.6 ng/mL [facility] Blood specimen (specimen) BLOOD SPECIMEN / Unknown 09/08/2013 6:15 PM CDT 09/08/2013 6:19 PM CDT Historical Provider LAB - CHEMISTRY Makayla BAKER Performing Organization Address [facility]/ZIP Co de Phone Number [address] [phone] * XR CHEST 2VW (09/08/2013 4:35 PM CDT) Anatomical Region Laterality Modality Chest Other Impressions 09/09/2013 7:25 AM CDT Impression: No acute pulmonary disease. Report dictated by Ignacio Zamarripa MD (radiology scheduler). This report was approved ??by Ignacio Zamarripa [...] disease. Report dictated by Ignacio Zamarripa MD (radiology scheduler). This report was approved by Ignacio Zamarripa M.D. on 09/09/2013 7:[address] SABINA Hayes M.D. have personally reviewed and interpretedthis examination/study. This report was electronically signed by SABINA OFNSECA M.D. on09/09/2013 7:25 AM . Historical Provider MD ESTER Paulson ORDERABLES * EKG 12-LEAD (09/08/2013 12:00 AM CDT) Pathologist [facility] EKG [facility] Comment: Exam Date/Time: ?? Sep 08 [...] available Confirmed by Tate FITZGERALD, IVET ([id number]), newspaper editor managing LORI RIOS ([id number]) on 09/15/2013 2:56:28 PM Referred By: REFERRING NO ? Confirmed By:IVET FITZGERALD M.D 09/08/2013 Jane Pollard MD ECG ORDERABLES Performing Organization Address City/State/[facility] Co de Phone Number [facility] Care Teams Oncology Social Worker Relationship Specialty Start Date End Date Sofia Healy MD [address] [phone] PCP - General 12/06/17
--- OUTSIDE RECORDS SUMMARY | 2024-05-02 16:28 | XMS_ITS | Clinical Summary ---
Author Organization [facility] Address [address] [place] [address] Care Team Providers Care Clearance Rep Name Role Phone Sofia Healy MD Primary Care Provider Source Comments [facility],non-owned Affiliates and Associated Physician Practices is amultiple site organization consisting of ambulatory clinics and hospital sitesin [place], [place], [place] and [place]. This disclosure is being madepursuant to the Care Everywhere program and may not contain all informatio navailable regarding this patient. Last updated 17.[facility] Allergies No known active allergies Medications * [...] METABOLIC PANEL (10/06/2022 4:52 PM CDT) Pathologist [facility] BUN 11 7 - 26 mg/dL 10/06/2022 5:36 PM [facility] Creatinine 0.78 0.56 - 0.96 mg/dL 10/06/2022 5:36 PM [facility] Sodium 138 136 - 145 mmol/L 10/06/2022 5:36 PM [facility] Potassium 4.4 3.5 - 4.5 mmol/L 10/06/2022 5:36 PM [facility] Comment:Hemolysis detected i n this specimen. Hemolysis may cause false elevations in potassium leading to pseudohyperkalemia or masked hypokalemia. Recommend repeat testing if clinically indicated. Chloride 105 98 - 107 mmol/L 10/06/2022 5:36 PM [facility] CO2 20(L) 22 - [...] 3.4 - 5.0 g/dL 10/06/2022 5:36 PM [facility] Bilirubin Total 0.8 0.2 - 1.2 [...] 8 - 18 10/06/2022 5:36 PM T [facility] BUN/Creatinine Ratio 14 7 - 23 07/0 09/2022 5:36 PM T [facility] Osmolality Calculated 286 270 - 300 mOsm/kg 10/06/2022 5:36 PM [facility] Albumin/Globulin Ratio 1.0(L) 1.1 - 2.3 5:36 PM [facility] eGFR by CKD-EPI >90 >=90 mL/min/1. 73 m2 10/06/2022 5:36 PM [facility] Blood BLOOD SPECIMEN / Unknown Venipuncture / Unknown 10/06/2022 4:52 PM CDT 10/06/2022 5:01 PM CDT Lavinia Mendoza ELECTRICAL PANEL BUILDER-SR. [employer]IX SYSTEM ADMINISTRATOR LAB - CHEMIS TRY ORDERABLES [facility] [address] [place] [address], [facility] [phone] from Last 3 Months or Most Recently Relevant to Health Maintenance Advance Directives * Full Code (Latest Code Status on File) Date Activated Date Inactivated Comments 09/30/2022 5:28 PM 10/01/2022 4:37 PM Care Teams Clearance Rep Relationship Specialty Start Date End Date Sofia Healy MD [address] [facility] [address] [place] [address] PCP - General 12/06/17
--- OUTSIDE RECORDS SUMMARY | 2024-05-02 16:28 | XMS_ITS | Referral Summary ---
Author Organization [facility] Address [address] [place] [address] Care Team Providers Care Commissioning Engineer Name Role Phone Sofia Healy MD Primary Care Provider Source Comments [facility],non-owned Affiliates and Associated Physician Practices is amultiple site organization consisting of ambulatory clinics and hospital sitesin [place], [place], [place] and [place]. This disclosure is being madepursuant to the Care Everywhere program and may not contain all information available regarding this patient. Last updated 17.[facility] Allergies No known active allergies Medications * [...] - 26 mg/dL 10/06/2022 5:36 PM CDT [facility] Creatinine 0.78 0.56 - 0.96 mg/dL 10/06/2022 5:36 PM CDT [facility] Sodium 138 136 - 145 mmol/L 10/06/2022 5:36 PM CDT [facility] Potassium 4.4 3.5 - 4.5 mmol/L 10/06/2022 5:36 PM [facility] Comment:Hemolysis detected i n this specimen. Hemolysis may cause false elevations in potassium leading to pseudohyperkalemia or masked hypokalemia. Recommend repeat testing if clinically indicated. Chloride 105 98 - 107 mmol/L 10/06/2022 5:36 PM CDT [facility] CO2 20(L) 22 - 29 mmol/L 10/06/2022 5:36 PM CDT [facility] Glucose 101 70 - 115 mg/dL 10/06/2022 5:36 PM [facility] Calcium 9.0 8.4 - 10.2 mg/dL 10/06/2022 5:36 PM [facility] Protein Total 7.4 6.0 - 8.3 g/dL 10/06/2022 5:36 PM [facility] Comment:Hemolysis detected i n this specimen. Hemolysis is known to cause elevations in this analyte. Caution should be exercised in the interpretation of this result. Recommend repeat testing if clinically indicated. Albumin 3.7 3.4 - 5.0 g/dL 10/06/2022 5:36 PM [facility] Bilirubin Total 0.8 0.2 - 1.2 mg/dL 10/06/2022 5:36 PM [facility] Alkaline Phosphatase 108 40 - 150 U/L 10/06/2022 5:36 PM [facility] ALT 87(H) 5 - 55 U/L 10/06/2022 5:36 PM [facility] AST 31 5 - 34 U/L 10/06/2022 5:36 PM [facility] Comment:Hemolysis detected i n this specimen. Hemolysis is known to cause elevations in this analyte. Caution should be exercised in the interpretation of this result. Recommend repeat testing if clinically indicated. Anion Gap 17 8 - 18 10/06/2022 5:36 PM [facility] BUN/Creatinine Ratio 14 7 - 23 09/2022 5:36 PM [facility] Osmolality Calculated 286 270 - 300 mOsm/kg 10/06/2022 5:36 PM [facility] Albumin/Globulin Ratio 1.0(L) 1.1 - 2.3 5:36 PM [facility] eGFR by CKD-EPI >90 >=90 mL/min/1. 73 m2 10/06/2022 5:36 PM [facility] Blood BLOOD SPECIMEN / Unknown Venipuncture / Unknown 10/06/2022 4:52 PM CDT 10/06/2022 5:01 PM T Lavinia Mendoza COMMUNITY HEALTH SPECIALIST-PRIVATE CLIENT ADVISOR LAB - CHEMIS TRY ORDERABLES [facility] [address] [place] [address], [facility] [phone] from Last 3 Months or Most Recently Relevant to Health Maintenance Advance Directives * Full Code (Latest Code Status on File) Date Activated Date Inactivated Comments 09/30/2022 5:28 PM 10/01/2022 4:37 PM Care Teams Commissioning Engineer Relationship Specialty Start Date End Date Sofia Healy MD [address] [facility] [address] [place] [phone] PCP - General 12/06/17
[2024-05-02 18:57] LABS: BEDSIDEPREGUCG Negative (Negative)
[2024-05-02 19:02] LABS: Basophils Absolute Auto 0.1 K/mm3 (0.0-0.1); Basophils Percent Auto 0.3 % (0.2-1.2); Eosinophils Absolute Auto 0.1 K/mm3 (0-0.3); Eosinophils Percent Auto 0.5 % (0-4.4); Hematocrit 42.9 % (37.0-47.0); Hemoglobin 14.5 g/dL (12.0-15.0); Immature Granulocyte Absolute 0.06 K/mm3 (0.00-0.031); Immature Granulocyte Percent A 0.4 % (0-0.5); Lymphocytes Absolute Auto 2.29 K/mm3 (0.9-3.2); Lymphocytes Percent Auto 15.1 % (18.3-44.2); Mean Corpuscular HGB Conc 33.8 g/dl (32-36); Mean Corpuscular Hemoglobin 31.9 pg (26-34); Mean Corpuscular Volume 94.3 fl (80-100); Mean Platelet Volume 10.8 fl (7.4-10.4); Monocytes Absolute Auto 1.2 K/mm3 (0.1-0.6); Monocytes Percent Auto 8.1 % (2.6-8.5); Neutrophils Absolute Auto 11.4 K/mm3 (1.3-6.7); Neutrophils Percent Auto 75.6 % (45.5-73.1); Platelet Count Result 266 k/mm3 (150-375); Red Blood Count 4.55 M/mm3 (4.2-5.4); Red Cell Distribution Width 12.8 % (11.5-14.5); White Blood Count 15.1 K/mm3 (4.5-10.0)
[2024-05-02 19:14] LABS: Add Urine Microscopic? YES; Appearance Urine Cloudy (Clear); Bacteria Urine 1+ /hpf; Bilirubin Urine 1+ (Negative); Blood Urine Negative (Negative); Color Urine Dark Yellow (Yellow); Glucose Urine UA Negative (Negative); Hyaline Casts Urine Present /lpf; Ketones Urine Trace mg/dL (Negative); Leukocyte Esterase Ur Negative LEU/UL (Negative); Mucus Urine Present /lpf; Need Manual Microscopic Reviewed; Nitrate Urine Negative (Negative); Protein Urine 1+ mg/dL (Negative); Specific Grav Ur 1.025 (1.001-1.035); Squamous Epithelial Cell Urine Few /hpf (Few); WBC Urine 0-5 /hpf (0-3); pH Urine 5.5 (5.0-9.0)
[2024-05-02 19:19] LABS: Alanine Aminotransferase 26 U/L (6-35); Albumin Level 4.1 g/dL (3.5-5.1); Alkaline Phosphatase 96 U/L (38-126); Anion Gap 11 mmol/L (4-12); Aspartate Amino Transferase 28 U/L (14-36); Bilirubin,Total 0.8 mg/dL (0.2-1.3); Blood Urea Nitrogen 11 mg/dL (7-17); Carbon Dioxide 23 mmol/L (22-30); Chloride 103 mmol/L (98-107); Estimated CRCL calculation 105 ml/min; Estimated Glomerular Filt Rate > 60; Glucose 108 mg/dL (65-110); Lipase 119 U/L (23-300); Potassium 4.6 mmol/L (3.4-5.0); Sodium 137 mmol/L (137-145)
[2024-05-02 22:35] LABS: Lipase 103 U/L (23-300)
[2024-05-02 22:37] LABS: Prothrombin Time 13.1 Seconds (11.1-14.7)
[2024-05-02 22:38] LABS: Partial Thromboplastin Time 31.9 Seconds (22.3-36.8)
[2024-05-02] MEDS: IPRATROPIUM 0.5 MG/ALBUTEROL SULFATE 2.5 MG AMPUL.NEB 3 ML INHALATION (22:44)
[2024-05-02 22:48] LABS: NT Pro B Type Natriuretic Pept 1530 pg/mL (19.9-100); Troponin I < 0.012 ng/mL (0.000-0.034)
[2024-05-02] MEDS: amLODIPine BESYLATE 5 MG TABLET PO (23:45)
[2024-05-02] MEDS: ONDANSETRON INJ 4 MG/2 ML VIAL IV PUSH (23:47)
[2024-05-02] MEDS: FUROSEMIDE INJ 40 MG/4 ML VIAL 20 MG IV PUSH (23:48)
[2024-05-03] VITALS (23 sets, daily range): BP systolic 152–179; BP diastolic 50–100; PULSE 72–110; RESP 15–25; TEMP 36.6–37.2; O2SAT 92–100; BMI 50.5
--- NOTE | 2024-05-03 01:30 | ADMGEN ---
This patient, Sunita Pollard, was admitted to IMU Room 205-02. Patient/family oriented to hospital policies and general routines including ID bracelet, bed and alarms, visiting hours, pain management, procedures, bathroom and other care routines, personal items, smoking policy, room service/diet, and visiting hours. Information on how to activate the Rapid Response Team has been discussed. Patient/Family are encouraged to report perceived risks to care and to ask questions if they do not understand what they are told or what they should do.
[2024-05-03 04:31] LABS: Troponin I < 0.012 ng/mL (0.000-0.034)
[2024-05-03 07:30] LABS: Troponin I < 0.012 ng/mL (0.000-0.034)
[2024-05-03] MEDS: ENOXAPARIN 40 MG/0.4 ML SYRINGE SUB-Q (09:25)
[2024-05-03] MEDS: LOSARTAN POTASSIUM 100 MG TABLET PO (09:25)
[2024-05-03] MEDS: dilTIAZem HCL CD 120 MG CAP.24HR PO ×2 (09:26→20:06)
[2024-05-03] MEDS: METOPROLOL TARTRATE 50 MG TAB PO ×2 (09:27→20:06)
--- NOTE | 2024-05-03 10:10 | PC.NURSE ---
eccho in with pt
--- NOTE | 2024-05-03 13:00 | ECHO_ITS ---
Patient Info Name: Sunita Pollard Age: 44 years : 1980 Gender: Female Ht: 63 in Wt: 286 lbs BSA: 2.48 m2 Technical Quality: Good Exam Date: 05/03/2024 10:18 AM Exam Location: Echo Lab Exam Room: [facility] Patient Status: Inpatient Admit Date: 05/02/2024 Staff Ordering Physician: Umu Ziegler PA-C Tool Mechanic: Kaitlin Hopper RDCS Attending Provider: Katie Huertas MD Referring Physician: Toney ARIZMENDI; Exam Type: CA echo doppler color flow Study Info Indications - CHF Complete two-dimensional, color flow and Doppler transthoracic echocardiogram is performed. Summary 1. Complete two-dimensional, color flow and Doppler transthoracic echocardiogram is performed. 2. Left ventricular chamber dimension is normal. 3. Left ventricular systolic function is normal, estimated at 60-65%. 4. The left ventricular diastolic function is grade I diastolic dysfunction. 5. E/e' 12 is mildly elevated. 6. Left atrial chamber dimension is moderately enlarged. 7. There is trace tricuspid valve regurgitation. 8. Mild pulmonary hypertension, estimated pulmonary arterial systolic pressure is 44 mmHg. 9. There is trace pulmonic regurgitation. 10. The prox ascending aorta size is borderline dilated at 4.0 cm. Left Ventricle E/e' 12 is mildly elevated. Left ventricular chamber dimension is normal. Left ventricular systolic function is normal, estimated at 60-65%. The left ventricular diastolic function is grade I diastolic dysfunction. Right Ventricle Right ventricular systolic function is normal and with normal TAPSE 2.7 cm. Right ventricular chamber dimension is normal. Left Atria Left atrial chamber dimension is moderately enlarged. Right Atria Right atrial chamber dimension is normal. Aortic Valve The aortic valve is trileaflet. There is no aortic valve stenosis. There is no aortic valve regurgitation. Pulmonic Valve There is trace pulmonic regurgitation. Mitral Valve There is no mitral valve stenosis. There is no mitral valve regurgitation. Tricuspid Valve There is trace tricuspid valve regurgitation. Mild pulmonary hypertension, estimated pulmonary arterial systolic pressure is 44 mmHg. Pericardium/Pleural There is no pericardial effusion. Inferior Vena Cava Normal inferior vena cava with >50% collapse upon inspiration consistent with normal right atrial pressure, 5 mmHg. Aorta The prox ascending aorta size is borderline dilated at 4.0 cm. The aortic root size at the sinus of Valsalva is normal. Left Ventricular Outflow Tract Name Value Normal LVOT 2D LVOT Diameter 2.4 cm LVOT Doppler LVOT Peak Gradient 4 mmHg LVOT Mean Gradient 2 mmHg LVOT VTI 24 cm LVOT VTI/AV VTI Ratio 0.7 LVOT Stroke Volume 110 ml LVOT CO 5.5 l/min LVOT CI 2.2 l/min/m2 Pulmonic Valve Name Value Normal PV Doppler PV Peak Gradient 5 mmHg PV Regurgitation Doppler ND Peak End Diastolic Velocity 169 cm/s Mitral Valve Name Value Normal MV Doppler MV Peak Gradient 3 mmHg MV Mean Gradient 2 mmHg MV Decel [place] 258 cm/s2 MV PHT 82 ms MV Area (PHT) 2.7 cm2 4.0-5.0 MV Area (Cont Eq VTI) 3.7 cm2 MV Regurgitation Doppler MR Peak Gradient 34 mmHg MV Diastolic Function MV E Peak Velocity 73 cm/s MV A Peak Velocity 84 cm/s MV E/A 0.9 MV Decel Time 284 ms MV Annular TDI MV E/e' (Septal) 12.7 <=8.0 MV E/e' (Lateral) 11.1 <=8.0 MV E/e' (Average) 11.9 Tricuspid Valve Name Value Normal TV Regurgitation Doppler TR Peak Velocity 312 cm/s TR Peak Gradient 39 mmHg Estimated PAP/RSVP RA Pressure 5 mmHg <=5 PA Systolic Pressure 44 mmHg <36 RV Systolic Pressure 44 mmHg <36 Aorta Name Value Normal Ascending Aorta Ao Root Diameter (MM) 3.6 cm Ao Root Diam Index (MM) 1.4 cm/m2 Aortic Valve Name Value Normal AV 2D/MM AV Cusp Sep (MM) 2.3 cm AV Doppler AV Peak Velocity 156 cm/s AV Peak Gradient 10 mmHg AV Mean Gradient 5 mmHg AV VTI 32 cm AV Area (Cont Eq VTI) 3.5 cm2 >=3.0 AV Area (Cont Eq Epifanio) 3.1 cm2 AV Regurgitation 2D LVOT Area 4.7 cm2 Ventricles Name Value Normal LV Dimensions 2D/MM IVS Diastolic Thickness (2D) 1.1 cm 0.6-1.0 LVID Diastole (2D) 5.3 cm 3.8-5.2 LVIW Diastolic Thickness (2D) 1.1 cm 0.6-0.9 LVID Systole (2D) 3.6 cm 2.2-3.5 LVOT Diameter 2.4 cm LV Mass (2D Cubed) 218.09 g 67.00-162.00 LV Mass Index (2D Cubed) 88 g/m2 43-95 Relative Wall Thickness (2D) 0.40 LV Fractional Shortening/Ejection Fraction 2D/MM LV Fractional Shortening (2D) 32 % 27-45 LV EF (2D Teicholz) 60 % 54-74 LV Diastolic Volume (4C MOD) 172 ml LV EF (4C MOD) 69 % LV Diastolic Length (4C) 9.0 cm LV Systolic Length (4C) 7.5 cm LV Stroke Volume (4C MOD) 119 ml Atria Name Value Normal LA Dimensions LA Dimension (MM) 4.1 cm 2.7-3.8 LA Volume (4C A-L) 78 ml RA Dimensions RA Area (4C) 16.5 cm2 <=18.0 Report Signatures
--- NOTE | 2024-05-03 13:56 | PM.IMHP ---
H&P: HPI History of Present Illness Date/Time: 05/03/24 13:56 Chief Complaint: Nausea, vomiting and diarrhea Narrative: 44yo female with asthma, tobacco abuse, HTN and CAD here for nausea, vomiting and diarrhea but with multiple complaints overall. Patient had nausea, vomiting and diarrhea for about a month. Associated with headaches. She is having abdominal cramping. This seems to be associated with low back pain. Complains of subjective fevers. Abdominal pain is in the epigastric region. She has shortness of breath and occasional left upper chest pain. Chest pain has been long standing and she had Echo and stress test about 1 year ago that were normal. She has asthma and continues to smoke. She does have apneic spells according to her . She has daytime somnolence and feels tired in the morning. She had a sleep study that was incomplete. Also with pedal edema for the past 2 years. She also complains of left shoulder and neck pain. She has HTN and is compliant with her medications. She has been having headaches but no vision changes. Her BP at home runs 160/110 range. She presented to the ED due to the poor oral intake, n/v and diarrhea. In the ED, BP 230/127 but no tachycardia, hypoxia or fever. UPT negative. WBC 15K o/w CBC was normal. CMP normal. Troponin negative x2. BNP 1530. EKG showing sinus rhythm with LAE, LAFB and LVH with strain. She was treated with bronchodilators, Lasix IV, the antiemetics and given a dose Norvasc. She was admitted for further care. Review of Systems Review of Systems: All systems reviewed & are unremarkable except as noted in HPI and below PMFSH Past Medical History Medical History Cervical cancer Treated with ablation(?) but no chemo/XRT CAD (coronary artery disease) with 'mild heart attack' Hyperlipidemia DJD (degenerative joint disease) Asthma Hypertension Surgical History Surgical History H/O arthroscopic knee surgery Pneumothorax on right Developed PTX with 1st attempt at cholecystectomy so surgery aborted Hx of cholecystectomy Family History Family History Sibling Cervix cancer Stomach cancer Father Hypertension CAD (coronary artery disease) High blood cholesterol Mother Hypertension CAD (coronary artery disease) High blood cholesterol Social History Social History (Updated 05/03/24 @ 14:21 by Dinesh Funez MD) Social History: Smokes a pack a day for past 20 years. No alcohol use. History of prescription narcotic abuse but has been clean for about 10 years. Lives with her . She was using marijuana but has stopped this recently. Surrogate decision maker is her . Code status is DNR. is supportive of her decision Smoking packs per day: 1 Smoking cigarettes per day: 20.0 Years smoked: 20 Smoking pack-years: 20.00 Smoking status: Current every day smoker Alcohol intake: former Substance use type: marijuana Do You Feel Safe in your Home?: Yes Lack of Transportation: No Lack of Food: Never True Current Housing: I Have Housing Concerned About Future Housing: No Difficulty Paying Gas/Electric Bills: No Difficulty Paying for Meds: No Currently Unemployed: No Education: High School Diploma/GED Difficulty w/ Childcare or Family Care: No Spiritual care concerns: No Meds Home Medications and Allergies Home Medications ?Medication ?Instructions ?Recorded ?Confirmed ?Type aspirin 81 mg capsule 81 mg PO DAILY 05/03/24 05/03/24 History atorvastatin 40 mg tablet 40 mg PO QPM 05/03/24 05/03/24 History diltiazem HCl 120 mg 120 mg PO Q12H 05/03/24 05/03/24 History capsule,extended release 24 hr losartan 100 mg tablet 100 mg PO DAILY 05/03/24 05/03/24 History metoprolol tartrate 50 mg tablet 50 mg PO Q12H 05/03/24 05/03/24 History Allergies Allergy/AdvReac Type Severity Reaction Status Date / Time morphine Allergy Unknown Nervousness Verified 05/02/24 23:44 Vital Signs Vital Signs - 24 hr 05/02/24 15:03 05/02/24 21:15 05/02/24 21:34 Temperature 98.0 F Pulse Rate 96 93 Respiratory Rate 18 22 H Blood Pressure 230/127 H Pulse Oximetry 99 97 96 Oxygen Delivery Room Air 05/02/24 21:45 05/02/24 21:46 05/02/24 22:07 Temperature Pulse Rate Respiratory Rate Blood Pressure 185/93 H Pulse Oximetry 97 97 98 Oxygen Delivery 05/02/24 22:10 05/02/24 22:17 05/02/24 22:43 Temperature Pulse Rate Respiratory Rate Blood Pressure 208/120 H Pulse Oximetry 97 97 97 Oxygen Delivery 05/02/24 22:45 05/02/24 22:45 05/02/24 23:08 Temperature Pulse Rate 83 Respiratory Rate 18 Blood Pressure Pulse Oximetry 100 95 Oxygen Delivery 05/02/24 23:14 05/02/24 23:15 05/02/24 23:16 Temperature Pulse Rate Respiratory Rate Blood Pressure 196/99 H 184/96 H Pulse Oximetry 96 95 97 Oxygen Delivery 05/02/24 23:30 05/03/24 00:01 05/03/24 00:03 Temperature Pulse Rate 82 80 Respiratory Rate 15 25 H Blood Pressure 169/91 H Pulse Oximetry 96 96 92 Oxygen Delivery 05/03/24 00:19 05/03/24 00:33 05/03/24 01:28 Temperature 97.9 F Pulse Rate 81 83 90 Respiratory Rate 17 23 H 18 Blood Pressure 169/91 H 152/50 H Pulse Oximetry 95 97 96 Oxygen Delivery 05/03/24 02:00 05/03/24 03:44 05/03/24 03:44 Temperature Pulse Rate 95 95 95 Respiratory Rate 18 Blood Pressure Pulse Oximetry 96 Oxygen Delivery Room Air 05/03/24 03:53 05/03/24 05:52 05/03/24 07:47 Temperature 98 F 98.6 F Pulse Rate 97 85 110 H Respiratory Rate 18 18 Blood Pressure 175/86 H 179/100 H Pulse Oximetry 96 95 Oxygen Delivery 05/03/24 08:00 05/03/24 09:27 05/03/24 10:00 Temperature Pulse Rate 107 H 94 92 Respiratory Rate Blood Pressure Pulse Oximetry Oxygen Delivery 05/03/24 12:00 05/03/24 12:00 Temperature Pulse Rate 78 79 Respiratory Rate 20 Blood Pressure 169/98 H Pulse Oximetry 96 Oxygen Delivery Exam Narrative: AF 98.6 169/98 78 20 96% ra Gen - well appearing female in no acute respiratory distress who is nontoxic-appearing HEENT - normocephalic. Atraumatic. Pupils equal round and reactive. Extraocular motions intact. Sclera clear and anicteric. Nares patent. Oropharynx was poorly visualized. No oral lesions. Moist mucous membranes. Tongue was midline. Palate sari symmetrically. No facial asymmetry. Neck - neck was supple. No apparent dominant adenopathy, thyromegaly or masses. Chest - faint expiratory wheezes anteriroly. Breast exam was deferred. CV - heart was regular rate and rhythm. S1-S2. No murmurs gallops or rubs. Abd - Soft. Obese. Nontender. Nondistended. Positive bowel sounds. Ext - Left homans sign. L>R bilateral pedal edema. 2+ DP pulses bilaterally. Neuro - patient is alert and oriented x4. Strength is 5/5 in both upper and lower extremities. Cranial nerves 2-12 are intact. Speech is clear. Psych - normal mood and affect. Patient is pleasant and cooperative. Skin - warm and dry. No rashes noted. H&P: Results Labs Labs: Short CBC 05/02/24 Range/Units 18:49 WBC 15.1 H (4.5-10.0) K/mm3 Hgb 14.5 (12.0-15.0) g/dL Hct 42.9 (37.0-47.0) % Plt Count 266 (150-375) k/mm3 BMP 05/02/24 18:49 Sodium 137 Potassium 4.6 Chloride 103 Carbon Dioxide 23 BUN 11 Creatinine 0.76 Glucose 108 Calcium 10.0 Cardiac Enzymes 05/02/24 05/03/24 05/03/24 Range/Units 22:18 04:01 06:57 Troponin I < 0.012 < 0.012 < 0.012 (0.000-0.034) ng/mL Liver Function 05/02/24 Range/Units 18:49 Total Bilirubin 0.8 (0.2-1.3) mg/dL AST 28 (14-36) U/L ALT 26 (6-35) U/L Alkaline Phosphatase 96 (38-126) U/L Albumin 4.1 (3.5-5.1) g/dL Urine 05/02/24 Range/Units 18:49 Urine Color Dark yellow (Yellow) Urine Appearance Cloudy H (Clear) Urine pH 5.5 (5.0-9.0) Ur Specific [place] 1.025 (1.001-1.035) Urine Protein 1+ H (Negative) mg/dL Urine Glucose (UA) Negative (Negative) mg/dL Assessment and Plan Assessment and plan (1) Chest pain: Code(s): R07.9 - Chest pain, unspecified Status: Acute (2) Hypertension: Qualifiers: Hypertension type: unspecified Qualified Code(s): I10 - Essential (primary) hypertension Code(s): I10 - Essential (primary) hypertension Status: Acute (3) Diarrhea: Code(s): R19.7 - Diarrhea, unspecified Status: Acute (4) Nausea & vomiting: Code(s): R11.2 - Nausea with vomiting, unspecified Status: Acute (5) Tobacco abuse: Code(s): Z72.0 - Tobacco use Status: Acute (6) Asthma: Code(s): J45.909 - Unspecified asthma, uncomplicated Status: Acute Plan Patient presents with GI complaints and recurrent chest pain. She was found to have a markedly elevated blood pressure. CT Abd/Pelvis showing no acute findings. Suspect she has gastroenteritis. She may have been either noncompliant with her medications due to nausea or her medication is coming back up in the emesis to explain the elevated blood pressure. Blood pressure poorly controlled at baseline which may be related to untreated sleep apena. She had a recent stress test and Echo and will try to obtain copies of these reports. Resume home medications and monitor. If blood pressure remains elevate, will advance her regiment. Check Apnea Link. Check lower extremity doppler given physical findings. Echo ordered here. Diet resumed. Follow for persistent GI symptoms. Add Pepcid. Further recommendations as course develops. DVT prophylaxis - Lovenox Code status - DNR
[2024-05-03] MEDS: NICOTINE (*PBKC) 21 MG PATCH 1 PATCH TRANSDERM (14:41)
[2024-05-03] MEDS: ACETAMINOPHEN 325 MG TABLET 650 MG PO (14:42)
[2024-05-03] MEDS: ATORVASTATIN 40 MG TABLET PO (17:20)
[2024-05-03] MEDS: FAMOTIDINE 20 MG TABLET PO (20:07)
[2024-05-03] MEDS: IPRATROPIUM 0.5 MG/ALBUTEROL SULFATE 2.5 MG AMPUL.NEB 3 ML INHALATION (21:43)
[2024-05-04] VITALS (7 sets, daily range): BP systolic 127–183; BP diastolic 92–112; PULSE 72–128; RESP 18–20; TEMP 36.6–37.1; O2SAT 97–100
[2024-05-04 05:40] LABS: Basophils Percent Auto 0.4 % (0.2-1.2); Eosinophils Absolute Auto 0.2 K/mm3 (0-0.3); Eosinophils Percent Auto 1.4 % (0-4.4); Hematocrit 43.3 % (37.0-47.0); Hemoglobin 14.4 g/dL (12.0-15.0); Immature Granulocyte Absolute 0.05 K/mm3 (0.00-0.031); Immature Granulocyte Percent A 0.5 % (0-0.5); Lymphocytes Absolute Auto 2.17 K/mm3 (0.9-3.2); Lymphocytes Percent Auto 19.7 % (18.3-44.2); Mean Corpuscular HGB Conc 33.3 g/dl (32-36); Mean Corpuscular Hemoglobin 31.4 pg (26-34); Mean Corpuscular Volume 94.5 fl (80-100); Mean Platelet Volume 10.8 fl (7.4-10.4); Monocytes Absolute Auto 1.1 K/mm3 (0.1-0.6); Monocytes Percent Auto 9.8 % (2.6-8.5); Neutrophils Absolute Auto 7.5 K/mm3 (1.3-6.7); Neutrophils Percent Auto 68.2 % (45.5-73.1); Platelet Count Result 237 k/mm3 (150-375); Red Blood Count 4.58 M/mm3 (4.2-5.4); Red Cell Distribution Width 12.6 % (11.5-14.5)
[2024-05-04 05:51] LABS: Anion Gap 10 mmol/L (4-12); Blood Urea Nitrogen 11 mg/dL (7-17); Calcium 9.5 mg/dL (8.4-10.2); Carbon Dioxide 25 mmol/L (22-30); Chloride 104 mmol/L (98-107); Estimated CRCL calculation 105 ml/min; Estimated Glomerular Filt Rate > 60; Glucose 114 mg/dL (65-110); Potassium 4.1 mmol/L (3.4-5.0); Sodium 139 mmol/L (137-145)
[2024-05-04] MEDS: ENOXAPARIN 40 MG/0.4 ML SYRINGE SUB-Q (09:26)
[2024-05-04] MEDS: LOSARTAN POTASSIUM 100 MG TABLET PO (09:26)
[2024-05-04] MEDS: hydroCHLOROthiazide 25 MG TABLET PO (09:26)
[2024-05-04] MEDS: NICOTINE (*PBKC) 21 MG PATCH 1 PATCH TRANSDERM (09:26)
[2024-05-04] MEDS: METOPROLOL TARTRATE 50 MG TAB PO (09:26)
[2024-05-04] MEDS: ASPIRIN 81 MG ENTERIC TABLET PO (09:27)
[2024-05-04] MEDS: FAMOTIDINE 20 MG TABLET PO (09:27)
[2024-05-04] MEDS: dilTIAZem HCL CD 120 MG CAP.24HR PO (09:27)
[2024-05-04 10:21] LABS: Hemoglobin A1C 5.6 % (<5.7)
--- NOTE | 2024-05-04 13:28 | PM.DS ---
DS: Admitting Diagnosis Discharge Date 05/04/24 Admitting Diagnosis Nausea, vomiting and diarrhea DS: Discharge Diagnosis Discharge Diagnosis (1) Chest pain: Code(s): R07.9 - Chest pain, unspecified Status: Acute (2) Hypertension: Qualifiers: Hypertension type: unspecified Qualified Code(s): I10 - Essential (primary) hypertension Code(s): I10 - Essential (primary) hypertension Status: Acute (3) Diarrhea: Code(s): R19.7 - Diarrhea, unspecified Status: Acute (4) Nausea & vomiting: Code(s): R11.2 - Nausea with vomiting, unspecified Status: Acute (5) Tobacco abuse: Code(s): Z72.0 - Tobacco use Status: Acute (6) Asthma: Code(s): J45.909 - Unspecified asthma, uncomplicated Status: Acute DS: Summary Hospital Course Reason for hospitalization: 44yo female with asthma, tobacco abuse, HTN and CAD here for nausea, vomiting and diarrhea but with multiple complaints overall. Please see H&P for details. Hospital Course: She presented to the ED due to the poor oral intake, n/v and diarrhea. In the ED, BP 230/127 but no tachycardia, hypoxia or fever. UPT negative. WBC 15K o/w CBC was normal. CMP normal. Troponin negative x2. BNP 1530. EKG showing sinus rhythm with LAE, LAFB and LVH with strain. She was treated with bronchodilators, Lasix IV, antiemetics and given a dose Norvasc. She was admitted to the IMU. CT Abd/Pelvis showing no acute findings. Suspect she has gastroenteritis. She may have been either noncompliant with her medications due to nausea or her medication is coming back up in the emesis to explain the elevated blood pressure. Blood pressure poorly controlled at baseline which may be related to untreated sleep apnea. Apnea Link showing AHI 12.6, RI 15.4. She spent 41 minutes with SpO2<88%. She had a recent stress test and we requested a copy of these reports. We resumed her home medications and blood pressure became better controlled but remained elevated. HCTZ was added to her regiment. A list of PCPs accepting new patients was given to the patient. Lower extremity venous doppler was negative for DVT. Echo showing EF 60-65% wiht Grade I diastolic dysfunction. Diet resumed and she was able to tolerate oral intake without recurrence of symptoms. She feels better and is requesting discharge. She overall did well and was able to be discharged home on 05/04/24. Status at Discharge Cognitive/behavioral status at discharge: stable Time Spent with Patient Time attestation: Total time spent providing and/or coordinating discharge services: 32 minutes Time spent: Greater than 30 minutes Exam Narrative: AF 98.8 149/92 86 18 97% ra Gen - NARD Chest - CTA bilaterally, nml RR CV - RRR S1/S2. Tele showing run of atrial tachycardia but no other runs Abd - Soft, obese, NT Ext - No pedal edema Neuro - Alert and oriented. Nonfocal exam. Psych - Nml mood and affect Skin - Warm and dry DS: Data Data Completed and Pending Labs on day of discharge: Labs from last 24 hours 05/04/24 05/04/24 05:31 05:30 WBC 11.0 H RBC 4.58 Hgb 14.4 Hct 43.3 MCV 94.5 MCH 31.4 MCHC 33.3 RDW 12.6 Plt Count 237 MPV 10.8 H Immature Gran % (Auto) 0.5 Neut % (Auto) 68.2 Lymph % (Auto) 19.7 [place] % (Auto) 9.8 H Eos % (Auto) 1.4 Baso % (Auto) 0.4 Lymph # (Auto) 2.17 [place] # (Auto) 1.1 H Eos # (Auto) 0.2 Baso # (Auto) 0.0 Abs Immat Gran (auto) 0.05 H Absolute Neuts (auto) 7.5 H Absolute Nucleated RBC 0.000 Nucleated RBC % 0.0 Sodium 139 Potassium 4.1 Chloride 104 Carbon Dioxide 25 Anion Gap 10 BUN 11 Creatinine 0.76 Estim Creat Clear Calc 105 Estimated GFR > 60 Glucose 114 H Hemoglobin A1c 5.6 Calcium 9.5 TSH (Reflex) 1.400 Discharge Plan Discharge Attending physician on discharge: Dinesh Funez Discharging Clinician: Dinesh Funez Anticipated Discharge Date/Time: 05/04/24 13:38 Patient Disposition: Home, Self-Care Activity: as tolerated Diet: heart healthy Discharge Instructions: Stop using all products that may contain tobacco or nicotine. Check blood pressure 1 to 2 times a day. Record and bring into your doctor for review. Call your doctor if your blood pressure is greater than 180/110. Contact your doctor or call 911 and come to the Emergency Room if you have fevers, recurrent chest pain or other worrisome symptoms. Avoid NSAIDs (ibuprofen, naproxen, Aleve). Tylenol is safe to take. Follow-up with your primary care provider in 1-2 weeks. Please call for appointment. -- You will need a outpatient sleep study. Please have your doctor arrange this. Thank you for using [facility] for your health care needs. Patient Instructions: Antibiotic Form Patient Language: Macedonian Stand Alone Forms: General Discharge Information Follow-up/Referrals: UNKNOWN,DOCTOR [Primary Care Provider] - Call for Appointment Discharge Medications: New hydrochlorothiazide 25 mg Tablet 25 mg PO QAM Qty: 30 0RF Continued losartan 100 mg tablet 100 mg PO DAILY metoprolol tartrate 50 mg tablet 50 mg PO Q12H diltiazem HCl 120 mg capsule,extended release 24hr 120 mg PO Q12H atorvastatin 40 mg tablet 40 mg PO QPM aspirin 81 mg capsule 81 mg PO DAILY Date of admission: 05/03/24 16:07 Primary Care Provider: UNKNOWN,DOCTOR Admitting Provider: Katie Huertas V. Attending physician on admission: Katie Huertas V. Condition: Stable Hospitalist MIPS Heart Failure (Exclusion) Patient has history of Heart Transplant or Left Ventricular Assistive Device?: No IF YES, STOP HERE Heart Failure (Qualifier) Patient has current or prior documentation of LVEF less than or equal to 40%, or mod/servere depressed LVSF?: No IF NO, STOP HERE
== END 2024-05-04 13:41 | disposition home or self-care (01) | DRG 392 ==
LOC: ANHED 23:40 → ANHIMU 05-03 00:23
PROVIDERS: Physician Assistant; Admitting Provider Internal Medicine; Emergency Provider Physician Assistant; Visit Provider Internal Medicine
DX: K52.9 Noninfective gastroenteritis and colitis, unspecified (principal); J45.909 Unspecified asthma, uncomplicated; I10 Essential (primary) hypertension; I25.10 Atherosclerotic heart disease of native coronary artery without angina pectoris; E78.5 Hyperlipidemia, unspecified; F17.210 Nicotine dependence, cigarettes, uncomplicated; G47.30 Sleep apnea, unspecified; Z66 Do not resuscitate; Z85.41 Personal history of malignant neoplasm of cervix uteri; I25.2 Old myocardial infarction; Z90.49 Acquired absence of other specified parts of digestive tract
CPT/HCPCS: 36415; 71275; 74174; 80048; 80053; 81001; 81025; 83036; 83690; 83880; 84443; 84484; 85025; 85610; 85730; 93005; 93306; 93970; 94640; 94762; 96374; 96375; 99285; A9270; G0378; J1650; J1940; J2405; Q9967